=== PATIENT | female | born 1960 | race Two or more races ===

== ENCOUNTER 2024-07-15 21:13 | Inpatient (IN) | payer MEDICAID, SELFPAY ==
[2024-07-15 21:15] VITALS: PULSE 86; RESP 16; O2SAT 96
--- NOTE | 2024-07-15 21:15 | PC.NURSE ---
PT BROUGHT TO ER FROM [facility], SNF NURSE REPORTED PT BP IS LOW, O2 SAT LOW AND NOT ACTING RIGHT.
[2024-07-15 21:19] VITALS: BP 81/54; PULSE 81; RESP 19; TEMP 36.8; O2SAT 95
--- NOTE | 2024-07-15 21:21 | EKG_ITS ---
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
--- NOTE | 2024-07-15 21:24 | EDNOTE_ITS ---
ED General RME/HPI General Chief complaint: General Adult/Misc Complain Stated complaint: LOW BP, O2 SATS LOW,BODYACHES Time Seen by Provider: 07/15/24 21:19 Arrival date/time: 07/15/24 21:13 RME / HPI RME / HPI narrative: Dr. Sapp?s Main ED Evaluation: 64yo female RHIANNA from [facility] presents to the ED for a chief complaint of AMS and low blood pressure. Per EMS, nursing staff was doing rounds when they noticed the patient was acting different and appeared altered. They checked her vitals and noticed her blood pressure was low, so the patient was sent out for evaluation. When asked, patient states everything hurts . She endorses having generalized body aches, N/V/D, and a sore throat. She denies any rashes. No known allergies. Related Data Home Medications ?Medication ?Instructions ?Recorded ?Confirmed ASPIRIN (ASA 81MG EC) 81 mg GT QDAY PRN FOR HEART ##0 09/22/14 08/17/17 Esomeprazole Mag Trihydrate PKT * 40 mg GT QDAY ACID #0 ea 09/22/14 08/17/17 (NEXIUM PKT *) Insulin Regular * (HUMULIN R *) 0 subcut QID PRN BLOOD GLUCOSE #0 09/22/14 vials alprazolam 0.25 mg tablet 0.25 mg GT BID PRN ANXIETY #0 tabs 09/22/14 08/17/17 amlodipine 10 mg tablet (Norvasc) 10 mg GT QDAY #0 tabs 09/22/14 08/17/17 atorvastatin 40 mg tablet (Lipitor) 40 mg GT HS CHOLESTROL #0 tabs 09/22/14 08/17/17 erythromycin 250 mg tablet,delayed 250 mg GT BID INFECTION ##0 09/22/14 08/17/17 release (Flaco-Tab) gabapentin 100 mg capsule 100 mg GT HS #0 caps 09/22/14 08/17/17 insulin glargine 100 unit/mL 14 unit subcut QAM DIABETES #0 09/22/14 08/17/17 subcutaneous solution (Lantus vials U-100 Insulin) metoprolol tartrate 50 mg tablet 50 mg GT BID #0 tabs 09/22/14 08/17/17 Mag Hyd/Alum Hyd/Simeth SUSP * 30 ml PO Q8HR upset stomach ##0 11/14/14 08/17/17 (MYLANTA MAX *) docusate sodium 50 mg/5 mL oral 200 mg GT BID ##0 11/21/14 08/17/17 liquid polyethylene glycol 3350 17 gram 1 pkt GT HS ##0 11/21/14 08/17/17 oral powder packet (Miralax) Previous Rx's ?Medication ?Instructions ?Recorded lisinopril 20 mg tablet (Prinivil) 20 mg PO 2100 #30 tabs 09/29/14 potassium chloride 20 mEq/15 mL 20 meq (15 mL) PO BIDWM ##14 11/18/14 oral liquid Allergies Allergy/AdvReac Type Severity Reaction Status Date / Time No Known Allergies Allergy Verified 08/17/17 21:19 Review of Systems Review of Systems Systems Reviewed: All systems reviewed, normal except as documented Past Medical History Past Medical History CARDIAC: Positive Cardiac Disorders and Hypertension; Negative Congestive Heart Failure RESPIRATORY: Negative Chronic Obstructive Pulmonary Disease (COPD) GENITOURINARY: Negative Renal Disease ENDOCRINE: Positive Diabetes Mellitus Type 2; Negative Diabetes Mellitus Type 1 PSYCHO/SOCIAL: Positive Depression OTHER HISTORY: Positive Blood Transfusions Social History SMOKING STATUS: Unknown if ever smoked ED Exam Narrative Physical exam: GENERAL APPEARANCE: alert and oriented x person and place, well-developed, well-nourished, no acute distress VITALS: All vitals were reviewed and the pulse ox is 96% on room air, which is normal according to my interpretation. HEENT: Normocephalic, atraumatic; pupils equal, round, reactive to light; EOMI; mucous membranes pink, moist; oropharynx clear NECK: Supple LUNGS: CTABL; no wheezes, no rales, no rhonchi HEART: Regular rate, regular rhythm; normal S1, S2; no murmurs ABDOMEN: non distended; normal BS; soft, no tenderness, no guarding, no rebound; no masses, no organomegaly, no hernia BACK: no CVA tenderness EXTREMITIES: atraumatic; no edema NEUROLOGIC: awake; alert and oriented x person and place; cranial nerves II-XII grossly intact; no focal sensory or motor deficits Course Course Course Narrative: CXR is ordered for determining the etiology of AMS. Quality Measures none Orders Category Date Time Status Bedside COVID-19 Antigen Test NOW Care 07/15/24 21:41 Completed Bedside Influenza A&B Antigen Test NOW Care 07/15/24 21:41 Completed Wind Turbine Service Technician STAT Care 07/15/24 21:35 Active Continuous Pulse Oximetry STAT Care 07/15/24 21:35 Completed EKG (ED ONLY) *Do not use* NOW Care 07/15/24 21:22 Completed In and Out Catheter X1PRN Care 07/15/24 21:35 Completed Insert IV NOW Care 07/15/24 21:35 Active NPO STAT Care 07/15/24 21:35 Active Strict Intake and Output Routine Care 07/15/24 21:[address] head/brain wo con Stat Exams 07/16/24 01:03 Taken EKG (ED Only) Stat Exams 07/15/24 21:21 Draft XR chest 1V portable Stat Exams 07/15/24 21:35 Completed B-Type Natriuretic Peptide Stat Lab 07/15/24 21:50 Completed Blood Culture (Lab) Stat Lab 07/15/24 21:53 Received CBC Stat Lab 07/15/24 21:50 Completed Comprehensive Metabolic Panel Stat Lab 07/15/24 21:50 Completed LDH (Lactate Dehydrogenase) Stat Lab 07/15/24 21:50 Completed Lactate (Lactic Acid) Stat Lab 07/15/24 21:50 Completed Lipase Stat Lab 07/15/24 21:50 Completed Magnesium Stat Lab 07/15/24 21:50 Completed Partial Thromboplastin Time Stat Lab 07/15/24 21:50 Completed Phosphorous Stat Lab 07/15/24 21:50 Completed Procalcitonin Stat Lab 07/15/24 21:50 Completed Prothrombin Time with INR Stat Lab 07/15/24 21:50 Completed Troponin I Stat Lab 07/15/24 21:50 Completed Urinalysis Stat Lab 07/15/24 22:04 Completed Urine Culture Stat Lab 07/15/24 22:04 Received Sodium Chloride 0.9% 1000 ml [Ns] 1,000 ml Med 07/15/24 21:35 Discontinued IV 999 mls/hr Sodium Chloride 0.9% 1000 ml [Ns] 1,000 ml Med 07/16/24 00:31 Discontinued IV 999 mls/hr cefTRIAXone/D5w 1gm IV premix [Rocephin/D5w 1gm IV Med 07/15/24 21:37 Discontinued premix] 50 ml IV X1 Vital Signs Vital signs: Vital Signs Temperature 98.2 F 07/15/24 21:19 Pulse Rate 81 07/15/24 21:19 Respiratory Rate 19 07/15/24 21:19 Blood Pressure 81/54 L 07/15/24 21:19 Pulse Oximetry (%) 95 07/15/24 21:19 Oxygen Delivery Method Nasal Cannula 07/15/24 21:19 Oxygen Flow Rate 6 07/15/24 21:19 [facility] Patient data External records reviewed:: [facility] previous records (Per chart review, patient has no previous ED visits.) Clinical information provided by:: EMS Social determinants that could affect healthcare access:: housing (Pt resides in a SNF.) Patient has the following chronic illnesses:: HTN, DMII How is presenting disease/condition affected by chronic disease/condition?: u neffected by Evaluation data The following diagnostics were reviewed and interpreted by me:: lab results, radiology exam(s) and EKG tracing(s) Lab and/or radiology exams considered but not ordered:: none Interpretation Summary: Bedside Influenza is positive, WBC count is elevated at 17.9, Creatinine is elevated at 4.0, eGFR is low at 12, troponin is elevated at 0.087, Lactic Acid is normal, Procalcitonin is elevated at 239.31, lipase is slightly elevated at 59, UA is positive for a UTI, according to my interpretation. EKG done at 2135, NSR, rate of 78, normal axis, no ectopy, nonspecific ST abnormalities, no STEMI, according to my interpretation. ------ [place] [facility] Report Signed Patient: NICKI FELICIANO Record#: [id number] Birthdate: 1960 Age/Sex: 64 / F Location: [facility] Attending Dr: Ordering Physician: Pablito Sapp MD Date of Service: 07/15/24 Procedure(s): XR chest 1V portable Accession Number(s): [id number] cc: Will Paulino MD; Pablito Sapp MD~ Examination: AP chest single view Technique: AP portable upright chest single view Exam date and time: 02/13/2024 2153 hrs. Indications: Coughing today. Findings: Normal heart size Mild opacity left base retrocardiac No pulmonary edema Moderate osteopenia Impression: Mild opacity left base retrocardiac, consider early left base pneumonia, the appearance should be clinically correlated Dictated By: Will Paulino MD Signed By: <Electronically signed by Will Paulino MD in OV> 07/15/242158 -------- [place] Preliminary Report Draft Patient: NICKI FELICIANO Record#: [id number] Birthdate: 1960 Age/Sex: 64 / F Location: [facility] Attending Dr: Ordering Physician: Date of Service: Procedure(s): Accession Number(s): cc: ~ CT scan of the head without intravenous contrast (axial sections with sagittal and coronal reformats) July 16, 2024 0126 hours Clinical history: AMS No prior study is available for comparison. Findings: There is no evidence of intracranial hemorrhage, mass effect or midline shift. Encephalomalacia is seen in the right inferior cerebellum.There are mild periventricular white matter hypodensities, likely representing chronic small vessel ischemia. There is mild to moderate volume loss. The calvarium is unremarkable. There is mild mucosal thickening in the bilateral maxillary, ethmoid and sphenoid sinuses. The mastoid air cells are clear. Impression: No evidence of intracranial hemorrhage, mass effect or midline shift. 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 Chronic small vessel ischemia and volume loss. Report Electronically Signed By: Frankie Bianchi 07/16/2024 2:15:14 AM [EST] Medications Medications considered but not ordered:: none Medication administrations:: Medication Administration History Discontinued Medications Sodium Chloride (Ns) 1,000 mls @ 999 mls/hr IV .Q1H1M ONE Stop: 07/15/24 22:35 Last Infusion: 07/15/24 23:13 Dose: Infused Documented By: Admin: 07/15/24 22:11 Dose: 999 mls/hr Documented By: CVL Ceftriaxone Sodium/Dextrose (Rocephin/D5w 1gm Iv Premix) 50 mls @ 100 mls/hr IV X1 ONE Stop: 07/15/24 22:06 Last Infusion: 07/15/24 22:46 Dose: Infused Documented By: Admin: 07/15/24 22:12 Dose: 100 mls/hr Documented By: CVL Sodium Chloride (Ns) 1,000 mls @ 999 mls/hr IV .Q1H1M ONE Stop: 07/16/24 01:31 Last Infusion: 07/16/24 01:48 Dose: Infused Documented By: Admin: 07/16/24 00:36 Dose: 999 mls/hr Documented By: CVL see above Consultations Consultation(s) initiated? (list below): Yes Consultation #1 (Physician, Specialty, Details): Discussed case with [Dr. Caldwell] from Hospitalist service regarding admission. Discussed patients ED course, exam findings, labs, and radiology results. The Hospitalist [agrees] to accept the patient for admission. Time: 00:37 Consultation #2 (Physician, Specialty, Details): Spoke with the resident hospitalist, who is requesting a CT head before admitting the patient. Time: 01:01 Consultation #3 (Physician, Specialty, Details): Discussed case with [Dr. Caldwell] from Hospitalist service regarding admission. Discussed patients ED course, exam findings, labs, and radiology results. The Hospitalist [agrees] to accept the patient for admission. Time: 02:27 Diagnosis Differential Diagnosis ED Complaint MDM: sepsis, UTI, COVID, Influenza, viral syndrome Most likely diagnosis given after review of the tests above:: see below Admission Indicated Admission indicated?: indicated Explain why admission is indicated or not indicated:: Admission criteria met Admission Request Was there a request for admission?: Yes Admission Attestation Admission request attestation: Discussed case with [] from Hospitalist service regarding admission. Discussed patients ED course, exam findings, labs, and radiology results. The Hospitalist [agrees,declines] to accept the patient for admission. Disposition Plan Disposition Plan: Admit Medical Decision Making Differential Diagnosis Differential Diagnosis: sepsis, UTI, COVID, Influenza, viral syndrome Lab Data 07/15/24 21:50 07/15/24 21:50 Labs: Lab Results 07/15/24 07/15/24 Range/Units 21:50 22:04 WBC 17.9 H (3.6-11.0) Thou/mm3 RBC 4.53 (4.00-5.20) Miln/mm3 Hgb 11.0 L (12.0-16.0) g/dL Hct 33.9 L (36.0-46.0) % MCV 75 L (80-100) fL MCH 24.3 L (25.0-35.0) pg MCHC 32.4 (31.0-37.0) g/dl RDW Std Deviation 43.5 (36.4-46.3) fL Plt Count 192 (140-440) Thou/mm3 Neut % (Auto) 69 (37-80) % Lymph % (Auto) 24 (10-50) % Bland % (Auto) 7 (0-12) % Eos % (Auto) 0 (0-10) % Baso % (Auto) 0 (0-2.5) % Neut # (Auto) 12.3 H (1.8-7.7) Thou/mm3 Lymph # (Auto) 4.2 (1.0-4.8) Thou/mm3 Bland # (Auto) 1.2 H (0.0-0.8) Thou/mm3 Eos # (Auto) 0.1 (0.0-0.5) Thou/mm3 Baso # (Auto) 0.0 (0.0-0.2) Thou/mm3 Immature Gran # (Auto) 0.08 H (0.00-0.00) Thou/mm3 Absolute Nucleated RBC 0.00 (0.00-0.00) Thou/mm3 Immature Gran % 0 (0-0) % Nucleated RBC % 0 (0) /100 WBC PT 11.0 (9.0-12.2) Seconds INR 1.0 (0.9-1.3) APTT 33.6 (22.0-36.0) Seconds Sodium 137 (136-145) mMol/L Potassium 3.6 (3.4-5.1) mMol/L Chloride 101 (98-107) mMol/L Carbon Dioxide 25.8 (20.0-31.0) mMol/L Anion Gap 10 (7-16) BUN 50 H (9-23) mg/dL Creatinine 4.0 H (0.6-1.3) mg/dL Estim Creat Clear Calc Not Performed. eGFR 12 L* (60 - ) See Note BUN/Creatinine Ratio 13 (12-20) Ratio Glucose 166 H (74-106) mg/dL Calculated Osmolality 291 (275-295) Lactic Acid 1.4 (0.4-2.0) mMol/L Calcium 8.9 (8.3-10.6) mg/dL Corrected Calcium 9.4 (8.5-10.1) mg/dL Phosphorus 3.8 (2.4-5.1) mg/dL Magnesium 1.6 (1.6-2.6) mg/dL Total Bilirubin 0.2 L (0.3-1.2) mg/dL AST 43 H (0-34) U/L ALT 20 (10-49) U/L Alkaline Phosphatase 102 (46-116) U/L Lactate Dehydrogenase 205 (120-246) U/L Troponin I 0.087 H* (0.0-0.045) ng/mL B-Natriuretic Peptide 71 (0-100) pg/mL Total Protein 6.3 (5.7-8.2) gm/dL Albumin 3.4 (3.4-4.8) gm/dL Globulin 2.9 (2.3-3.5) gm/dL Albumin/Globulin Ratio 1.2 (1.2-2.2) Lipase 59 H (12-53) U/L Procalcitonin 239.31 H (0.0-0.49) ng/ml Ur Collection Type Clean Catch Urine Color Yellow (Lt Yel-Yel) Urine Clarity Hazy (Clear/Hazy) Urine pH 7.5 H (5.0-7.0) Ur Specific Todd 1.015 (1.001-1.035) Urine Protein 3+ A (Neg - Trace) Urine Glucose (UA) Negative (Negative) Urine Ketones Negative (Negative) Urine Blood 1+ A (Negative) Urine Nitrite Negative (Negative) Urine Bilirubin Negative (Negative) Urine Urobilinogen (Auto) Negative (0.0-1.0) mg/dL Ur Leukocyte Esterase Positive (Negative) Urine RBC < 1 (0-3) /hpf Urine WBC 13 H (0-5) /hpf Ur Squamous Epith Cells 1 (0-5) /hpf Urine Bacteria 1+ A (None) Discharge Plan Plan Patient Disposition: Admit Acute Care w/in Hospital Prescriptions/Referrals Prescriptions/Med Rec: No Action ASPIRIN (ASA 81MG EC) 81 MG TABLET, ENTERIC COATED 81 mg GT QDAY PRN (Reason: FOR HEART) Qty: 0 atorvastatin [Lipitor] 40 MG tablet 40 mg GT HS Qty: 0 amlodipine [Norvasc] 10 MG tablet 10 mg GT QDAY Qty: 0 gabapentin 100 MG capsule 100 mg GT HS Qty: 0 Esomeprazole Mag Trihydrate PKT * (NEXIUM PKT *) 40 MG/PACKET SUSPDR.REC 40 mg GT QDAY Qty: 0 Insulin Regular * (HUMULIN R *) 100 U/ML VIAL 0 Sub-Q QID PRN (Reason: BLOOD GLUCOSE) Qty: 0 erythromycin [Flaco-Tab] 250 MG tablet 250 mg GT BID Qty: 0 insulin glargine [Lantus U-100 Insulin] 100 U/ML solution 14 unit Sub-Q QAM Qty: 0 alprazolam 0.25 MG tablet 0.25 mg GT BID PRN (Reason: ANXIETY) Qty: 0 metoprolol tartrate 50 MG tablet 50 mg GT BID Qty: 0 lisinopril [Prinivil] 20 MG tablet 20 mg PO 2100 Qty: 30 0RF Mag Hyd/Alum Hyd/Simeth SUSP * (MYLANTA MAX *) 360 ML ORAL.SUSP 30 ml PO Q8HR Qty: 0 potassium chloride 40 MEQ/30 ML liquid 20 meq PO BIDWM Qty: 14 0RF docusate sodium 100 MG/10 ML liquid 200 mg GT BID Qty: 0 polyethylene glycol 3350 [Miralax] 12 EA powder in packet 1 pkt GT HS Qty: 0 Referrals: No Primary/Family,Physician [Primary Care Provider] - In 1 week Problem List Clinical Impression: Non-ST elevation AL (NSTEMI), Sepsis, Acute renal failure, UTI (urinary tract infection) Patient/Caregiver Discharge Instructions Print Language: Sammarinese Stand Alone Forms: [facility] Award Info., Patient Portal Info Letter
[2024-07-15 21:32] VITALS: BP 108/51; PULSE 76; RESP 18; O2SAT 97
--- NOTE | 2024-07-15 21:35 | XR_ITS ---
Examination: AP chest single view Technique: AP portable upright chest single view Exam date and time: 02/13/2024 2153 hrs. Indications: Coughing today. Findings: Normal heart size Mild opacity left base retrocardiac No pulmonary edema Moderate osteopenia Impression: Mild opacity left base retrocardiac, consider early left base pneumonia, the appearance should be clinically correlated
[2024-07-15 21:40] VITALS: PULSE 78
[2024-07-15 21:58] LABS: Lactate (Lactic Acid) 1.4 mMol/L (0.4-2.0)
[2024-07-15 22:06] LABS: Basophils % (Auto) 0 % (0-2.5); Eosinophils # (Auto) 0.1 Thou/mm3 (0.0-0.5); Eosinophils % (Auto) 0 % (0-10); Hematocrit 33.9 % (36.0-46.0); Immature Granulocytes % (Auto) 0 % (0-0); Immature Granulocytes Auto 0.08 Thou/mm3 (0.00-0.00); Lymphocytes # (Auto) 4.2 Thou/mm3 (1.0-4.8); Lymphocytes % (Auto) 24 % (10-50); Mean Corpuscular HGB Conc 32.4 g/dl (31.0-37.0); Mean Corpuscular Hemoglobin 24.3 pg (25.0-35.0); Mean Corpuscular Volume 75 fL (80-100); Monocytes # (Auto) 1.2 Thou/mm3 (0.0-0.8); Monocytes % (Auto) 7 % (0-12); Neutrophils # (Auto) 12.3 Thou/mm3 (1.8-7.7); Neutrophils % (Auto) 69 % (37-80); Nucleated Red Blood Cell % 0 /100 WBC (0); Platelet Count 192 Thou/mm3 (140-440); RDW Standard Deviation 43.5 fL (36.4-46.3); Red Blood Count 4.53 Miln/mm3 (4.00-5.20); White Blood Count 17.9 Thou/mm3 (3.6-11.0)
[2024-07-15 22:11] LABS: Collection Type, Urine Clean Catch
[2024-07-15] MEDS: SODIUM CHLORIDE 0.9% 1000 ML 1,000 ML 999 ML IV (22:11)
[2024-07-15] MEDS: cefTRIAXone/D5w 1gm IV premix 50 ML IV (22:12)
[2024-07-15 22:19] LABS: Partial Thromboplastin Time 33.6 Seconds (22.0-36.0)
[2024-07-15 22:38] LABS: Bacteria,Urine 1+; Bilirubin,Urine Negative (Negative); Blood,Urine 1+ (Negative); Clarity,Urine Hazy (Clear/Hazy); Color,Urine Yellow (Lt Yel-Yel); Glucose, Urine Negative (Negative); Ketones,Urine Negative (Negative); Leukocyte Esterase,Urine Positive (Negative); Nitrite,Urine Negative (Negative); PH,Urine 7.5 (5.0-7.0); Protein,Urine 3+ (Neg - Trace); RBC,Urine < 1 /hpf (0-3); Specific Gravity,Urine 1.015 (1.001-1.035); Squamous Epithelial Cell,Urine 1 /hpf (0-5); Urobilinogen,Urine Negative mg/dL (0.0-1.0); WBC,Urine 13 /hpf (0-5)
[2024-07-15 22:45] LABS: B-Type Natriuretic Peptide 71 pg/mL (0-100)
[2024-07-15 22:48] VITALS: BP 109/57; PULSE 71; RESP 14; O2SAT 99
[2024-07-15 22:49] LABS: Alanine Aminotransferase 20 U/L (10-49); Albumin, Serum 3.4 gm/dL (3.4-4.8); Albumin/Globulin Ratio 1.2 (1.2-2.2); Alkaline Phosphatase 102 U/L (46-116); Anion Gap 10 (7-16); Aspartate Amino Transferase 43 U/L (0-34); BUN/Creatinine Ratio 13 Ratio (12-20); Bilirubin,Total 0.2 mg/dL (0.3-1.2); Blood Urea Nitrogen 50 mg/dL (9-23); Calcium 8.9 mg/dL (8.3-10.6); Calcium (Corrected) 9.4 mg/dL (8.5-10.1); Carbon Dioxide 25.8 mMol/L (20.0-31.0); Chloride 101 mMol/L (98-107); Globulin 2.9 gm/dL (2.3-3.5); Glucose 166 mg/dL (74-106); Lipase 59 U/L (12-53); Magnesium 1.6 mg/dL (1.6-2.6); Osmolality,Calculated 291 (275-295); Phosphorous 3.8 mg/dL (2.4-5.1); Potassium 3.6 mMol/L (3.4-5.1); Sodium 137 mMol/L (136-145); Total Protein 6.3 gm/dL (5.7-8.2); eGFR 12 See Note
[2024-07-15 22:50] LABS: Troponin I 0.087 ng/mL (0.0-0.045)
[2024-07-15 23:39] LABS: LDH (Lactate Dehydrogenase) 205 U/L (120-246)
[2024-07-16] VITALS (10 sets, daily range): BP systolic 104–129; BP diastolic 57–70; PULSE 69–83; RESP 12–21; TEMP 36.1–36.7; O2SAT 93–98; BMI 35.8
[2024-07-16] MEDS: SODIUM CHLORIDE 0.9% 1000 ML 1,000 ML 999 ML IV (00:36)
[2024-07-16 00:59] LABS: Procalcitonin 239.31 ng/ml (0.0-0.49)
--- NOTE | 2024-07-16 01:03 | XR_ITS ---
Examination: CT brain head without contrast. 2-D sagittal coronal reconstructions Date and time of exam:July 16, 2024 0126 hours INDICATIONS: Onset altered mental status today CTDI: vol (mGy):52 DLP: (mGycm):1056 Technique: Multiple CT axial sections of the brain have been obtained, 5 mm slice thickness. Contrast has not been administered. 2-D sagittal, coronal reconstructions have been obtained Low dose protocols were performed. One or more of the following dose reduction techniques were used; automated exposure control, adjustment of the mA and/or KV according to patient size, use of iterative reconstruction technique. Findings: No significant ventricular enlargement. Old appearing infarct in the left caudate nucleus but clinical correlation advised Extensive encephalomalacia right cerebellar hemisphere Intra-axial or extra-axial hemorrhage density is not seen. No mass effect or midline shift Basal cisterns are not remarkable. Fourth ventricle is midline. Cranial vault intact. Impression: Negative for acute hemorrhage, mass effect or midline shift Old appearing infarcts as above, clinical correlation advised As clinically warranted, brain MRI follow-up would best assess for acute ischemic change
--- NOTE | 2024-07-16 02:16 | PRELIM_ITS ---
CT scan of the head without intravenous contrast (axial sections with sagittal and coronal reformats) July 16, 2024 0126 hours Clinical history: AMS No prior study is available for comparison. Findi ngs:There is no evidence of intracranial hemorrhage, mass effect or midline shift. Encephalomalacia i s seen in the right inferior cerebellum.There are mild periventricular white matter hypodensities, li moustapha representing chronic small vessel ischemia. There is mild to moderate volume loss. The calvariu m is unremarkable. There is mild mucosal thickening in the bilateral maxillary, ethmoid and sphenoid sinuses. The mastoid air cells are clear. 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 Report Electronically Signed By: Frankie Bianchi 06/19 2:15:14 AM [EST]
--- NOTE | 2024-07-16 02:47 | ESHP_ITS ---
Documentation for date of: 07/16/24 HPI History of Present Illness Chief complaint: Altered mental status, low blood pressure History of present illness: 62-year-old female with history of CVA with functional quadriplegia, hypertension, hyperlipidemia, depression, anemia of chronic disease, CKD, insulin dependent type 2 diabetes, diverticulosis presenting to the ED from [facility] with change in mental status per staff members along with low blood pressure when checked. History taken mostly from ED physician and reports from [facility] as the patient is verbal but mostly monitoring her words and seems to be debilitated. Per chart review, patient had CVA episode sometime in 2014 and was trach and PEG, admitted to a subacute facility at which point she improved over several years where she was able to use wheelchair. Per notes, patient does not have any family support and has been at [facility] for several years. When she presented to the ED, ED physician notes that the patient was altered and had some confusion which is out of her normal baseline. Interviewed the patient, she is Citizen [place]- speaking, at which point she stated that she is having chest pain and difficulty with initiating breaths; however, she denies having any nausea/vomiting/diarrhea, sick contacts or any other concerning symptoms Medical history: As listed above Surgical history: Trach and PEG Allergies: NKDA Medications: Amlodipine, metformin, Januvia, long-acting insulin, esomeprazole, metoprolol tartrate Family history: Noncontributory Social history: Patient is a long-term resident at [facility], no charted history of smoking tobacco, alcohol use or illicit drug use ROS: All 12 systems assessed and the patient denies unless otherwise stated in HPI. In the ED, patient presented hypotensive 81/54, heart rate 81, respiratory rate 19, afebrile satting 95 on 6 L nasal cannula. Pertinent lab findings included fingerstick blood glucose 167, WBC 17.9, hemoglobin 11 with MCV of 75, platelet 192, potassium 3.6, BUN 50, creatinine 4.0, EGFR 12, lactic acid 1.4, magnesium 1.6, AST 43, ALT 20, troponin 0.087 and Pro-Nicholas 239. Urinalysis shows 3+ proteinuria, hematuria, positive leukocyte esterase, pyuria and +1 bacteria. EKG shows sinus rhythm, chest x-ray shows left-sided pneumonia and head CT is negative for any acute bleed but there is chronic microvascular changes along with encephalomalacia in the right inferior cerebellum secondary to old infarct Patient will be admitted for sepsis secondary to pneumonia and urinary tract infection with BETHANY likely secondary to Tamiflu; will be treated with IV antibiotics and IV fluids. Exam Vital Signs Temp Pulse Resp BP Pulse Ox O2 Del Method O2 Flow Rate 98.0 F 74 19 104/62 96 Nasal Cannula 2 07/16/24 00:29 07/16/24 02:00 07/16/24 02:00 07/16/24 02:00 07/16/24 02:00 07/16/24 02:00 07/16/24 02:00 Narrative Exam Physical Exam: GENERAL: Awake but somnolent, answers questions appropriately when prompted, appears stated age HEENT: NC/AT. Moist mucosa. PERRLA/EOMI. CARDIO: Heart RRR, no obvious murmurs, no JVD. PULM: No coughing or visible SOB. Rhonci noted on L>R lung underwood, no crackles/rales/wheeze GI: Abdomen soft, tenderness to palpation LLQ and hypogastric regions, no guarding or rigidity. Borborygmi apparent. SKIN/MSK/EXT: No wounds/discoloration/rashes/edema/amputations noted. +Pedal pulses present B/L. NEURO: Oriented x2 (person, place - not to purpose), unable to assess CN 2-12 due to patient's somnolence Results: Labs 07/15/24 21:50 07/15/24 21:50 Labs: Short CBC 07/15/24 Range/Units 21:50 WBC 17.9 H (3.6-11.0) Thou/mm3 Hgb 11.0 L (12.0-16.0) g/dL Hct 33.9 L (36.0-46.0) % Plt Count 192 (140-440) Thou/mm3 BMP 07/15/24 21:50 Sodium 137 Potassium 3.6 Chloride 101 Carbon Dioxide 25.8 BUN 50 H Creatinine 4.0 H Glucose 166 H Calcium 8.9 Cardiac Enzymes 07/15/24 Range/Units 21:50 Troponin I 0.087 H* (0.0-0.045) ng/mL Liver Function 07/15/24 Range/Units 21:50 Total Bilirubin 0.2 L (0.3-1.2) mg/dL AST 43 H (0-34) U/L ALT 20 (10-49) U/L Alkaline Phosphatase 102 (46-116) U/L Albumin 3.4 (3.4-4.8) gm/dL Urine 07/15/24 Range/Units 22:04 Urine Color Yellow (Lt Yel-Yel) Urine Clarity Hazy (Clear/Hazy) Urine pH 7.5 H (5.0-7.0) Ur Specific [place] 1.015 (1.001-1.035) Urine Protein 3+ A (Neg - Trace) Urine Glucose (UA) Negative (Negative) Quality Measures Quality Measures none Medications Home Medications and Allergies Home Medications ?Medication ?Instructions ?Recorded ?Confirmed ?Type azithromycin 250 mg tablet 250 mg PO DAILY 07/16/24 07/16/24 History glucagon HCl 1 mg solution for 1 mg subcut Q20M PRN hypo 07/16/24 07/16/24 History injection (Glucagon (HCl) Emergency Kit) oseltamivir 75 mg capsule 75 mg PO BID 07/16/24 07/16/24 History Allergies Allergy/AdvReac Type Severity Reaction Status Date / Time No Known Allergies Allergy Verified 08/17/17 21:19 Visit Medications Acetaminophen (Acetaminophen 325 Mg Tablet) 650 mg PO Q6H PRN PRN Reason: Pain 1-3 and/or Fever >100.1 Stop: 08/15/24 02:37 Azithromycin (Azithromycin 250 Mg Tablet) 250 mg PO QDAY ARLENE Stop: 07/21/24 08:59 Dextrose (Dextrose 50%-Water Inj 50 Ml Syringe) 25 ml IV Q15MIN PRN PRN Reason: BG 50-70 responsive npo pt Stop: 08/15/24 02:40 Dextrose (Dextrose 50%-Water Inj 50 Ml Syringe) 50 ml IV Q15MIN PRN PRN Reason: BG <50 OR BG <70 & pt unresponsive Stop: 08/15/24 02:40 Glucagon (Glucagon Inj 1 Mg Vial) 1 mg IM Q15MIN PRN PRN Reason: BG <70, and no IV access Heparin Sodium (Porcine) (Heparin Sod Inj 5000 Unit/Ml Vial) 5,000 unit SC Q12HR ARLENE Stop: 07/30/24 08:59 Ceftriaxone Sodium/Dextrose (Rocephin/D5w 1gm Iv Premix) 50 mls @ 100 mls/hr IV QDAY ARLENE Stop: 07/23/24 02:42 Sodium Chloride (Ns) 1,000 mls @ 50 mls/hr IV .Q20H ARLENE Stop: 07/16/24 22:43 Magnesium Sulfate (Magnesium Sulfate Ivpb) 4 gm in 50 mls @ 12.5 mls/hr IV X1 ONE Stop: 07/16/24 06:45 Insulin Human Lispro (Insulin Lispro (Admelog) 1 Unit/0.01 Ml Unit) 0 unit SC Q6HR ARLENE; Protocol Stop: 08/15/24 05:59 Ondansetron HCl (Ondansetron Inj 2 Mg/Ml Inj 2 Ml) 4 mg IV Q6H PRN; Protocol PRN Reason: NAUSEA OR VOMITING Stop: 08/15/24 02:37 Sennosides (Senna Tablet) 1 tab PO QDAY ARLENE; Protocol Stop: 08/15/24 08:59 Discontinued Medications Azithromycin (Azithromycin 250 Mg Tablet) 500 mg PO X1 ONE Stop: 07/16/24 02:43 Sodium Chloride (Ns) 1,000 mls @ 999 mls/hr IV .Q1H1M ONE Stop: 07/15/24 22:35 Last Infusion: 07/15/24 23:13 Dose: Infused Ceftriaxone Sodium/Dextrose (Rocephin/D5w 1gm Iv Premix) 50 mls @ 100 mls/hr IV X1 ONE Stop: 07/15/24 22:06 Last Infusion: 07/15/24 22:46 Dose: Infused Sodium Chloride (Ns) 1,000 mls @ 999 mls/hr IV .Q1H1M ONE Stop: 07/16/24 01:31 Last Infusion: 07/16/24 01:48 Dose: Infused Oseltamivir Phosphate (Oseltamivir 30 Mg Capsule) 30 mg PO X1 ONE Stop: 07/16/24 02:38 Assessment & Plan Plan 62-year-old female with history of CVA with functional quadriplegia, hypertension, hyperlipidemia, depression, anemia of chronic disease, CKD, insulin dependent type 2 diabetes, diverticulosis presenting from [facility] with change in mental status per staff members along with low blood pressure when checked will be admitted for sepsis secondary to pneumonia and urinary tract infection with BETHANY likely secondary to Tamiflu; will be treated with IV antibiotics and IV fluids. #Acute encephalopathy 2/2 #Sepsis secondary to pneumonia #Community-acquired pneumonia, Influenza PNA #Acute respiratory failure #Urinary tract infection #Leukocytosis Patient presenting from [facility] transitional care secondary to change in mental status and low blood pressure Unable to acquire history from patient as the patient is somnolent and only provides one-word answers In the ED, patient presented hypotensive and hypoxemic requiring 6 L nasal cannula Patient appears septic with new acute encephalopathy, WBC 17.9, end-organ dysfunction (acute renal failure), Pro-Nicholas 239 Chest x-ray shows left-sided pneumonia, urinalysis shows signs of urinary tract infection (unable to ascertain if patient has dysuria but she does have hypogastric tenderness) CT of head ordered to rule out intracranial/cerebral hemorrhage; no bleed noted but there is chronic microvascular changes along with encephalomalacia in the right inferior cerebellum secondary to old infarct Patient given 2 L normal saline boluses in the ED for sepsis alert Plan: IV ceftriaxone and azithromycin regimen ordered Oxygen supplementation as needed Blood and urine cultures IV maintenance fluids Discontinued Tamiflu 30mg (renally dosed) as patient could possibly have received 75mg (pending med rec) already. #Acute renal failure #Diabetic nephropathy Per chart review, patient has history of CKD likely secondary to diabetic nephropathy Patient presenting now with acute renal failure creatinine of 4.0, BUN 50 and EGFR of 12 Likely secondary to sepsis versus worsening kidney function due to chronic medical condition Patient was given 75 mg of Tamiflu at SNF facility which can precipitate kidney failure Plan: IV maintenance fluids Follow-up with morning labs, expecting creatinine to improve with IV fluids If patient does not improve, consider consulting nephrology Patient does not meet emergent dialysis needs at this time (not volume overloaded, not acidotic, no hyperkalemia, no toxins) Avoid nephrotoxic agents Renally dose medications #Elevated troponin Patient presenting to the ED with elevated troponin 0.087 Patient is state that she has chest pain, centrally with no radiation Likely secondary to septic status along with pneumonia but patient does have some risk factors of developing ACS/CAD Patient does have hypertension, diabetes, CKD and history of CVA in the past Plan: Trending troponin every 6 hours #Hypertension Patient has history of hypertension on metoprolol tartrate, amlodipine Patient presenting now with sepsis and hypotension Plan: Restart home medications when appropriate #Insulin-dependent type 2 diabetes Patient is on metformin, Januvia and insulin at the facility No A1c on file Plan: Follow-up with A1c Sliding scale insulin every 6 hours Bedside blood glucose every 6 hours #Microcytic anemia Per chart review, patient has history of anemia and has been given iron supplementation in the past Differentials include anemia of chronic disease, iron deficiency anemia, thalassemia Plan: Consider repeating iron panel #History of CVA #History of functional quadriplegia, dysphagia #History of trach and PEG 2014 Chronic medical conditions Plan: Speech evaluation for dysphagia, n.p.o. until then Hospital Management: Lines: PIV Diet: N.p.o. pending swallow eval Bowel: Senna as needed GI prophylaxis: Protonix DVT prophylaxis: Heparin subq Dispo: Sepsis secondary to pneumonia/UTI on IV antibiotics and IV fluids for acute renal failure Code: Full Patient seen and examined with attending Dr. Gupta and senior resident Dr. Marcela Roberts, PGY-1 Attending Provider Attestation/Addendum 64-year-old female with multiple medical conditions including CVA, history of trach PEG, functional quadriplegia resident of transitional care facility was brought in because of altered mentation. The patient initially had low blood pressure. She was diagnosed with sepsis. She tested positive for flu. She has abnormal BUN and creatinine. Repeat CT scan of the head showed no acute stroke no bleed. Patient was admitted for severe sepsis secondary to viral pneumonia possible superimposed bacterial infection. Discussed with housestaff.
[2024-07-16] MEDS: SODIUM CHLORIDE 0.9% 1000 ML 1,000 ML 50 ML IV (03:44)
[2024-07-16] MEDS: Magnesium Sulfate 4 GM Ivpb 4 GM/50 ML BAG IV (03:48)
[2024-07-16 05:49] LABS: Basophils % (Auto) 0 % (0-2.5); Eosinophils % (Auto) 0 % (0-10); Hemoglobin 10.9 g/dL (12.0-16.0); Immature Granulocytes % (Auto) 0 % (0-0); Immature Granulocytes Auto 0.06 Thou/mm3 (0.00-0.00); Lymphocytes # (Auto) 3.5 Thou/mm3 (1.0-4.8); Lymphocytes % (Auto) 23 % (10-50); Mean Corpuscular HGB Conc 32.1 g/dl (31.0-37.0); Mean Corpuscular Hemoglobin 24.3 pg (25.0-35.0); Mean Corpuscular Volume 76 fL (80-100); Monocytes # (Auto) 0.8 Thou/mm3 (0.0-0.8); Monocytes % (Auto) 5 % (0-12); Neutrophils # (Auto) 10.6 Thou/mm3 (1.8-7.7); Neutrophils % (Auto) 71 % (37-80); Nucleated Red Blood Cell % 0 /100 WBC (0); Platelet Count 174 Thou/mm3 (140-440); Red Blood Count 4.48 Miln/mm3 (4.00-5.20); White Blood Count 14.9 Thou/mm3 (3.6-11.0)
[2024-07-16 05:56] LABS: Glucose Estimated Average 169 mg/dL (80-131); Hemoglobin A1C 7.5 % Hgb (4.8-6.0)
[2024-07-16 06:41] LABS: Alanine Aminotransferase 14 U/L (10-49); Albumin, Serum 3.3 gm/dL (3.4-4.8); Albumin/Globulin Ratio 1.2 (1.2-2.2); Alkaline Phosphatase 96 U/L (46-116); Anion Gap 10 (7-16); Aspartate Amino Transferase 36 U/L (0-34); BUN/Creatinine Ratio 12 Ratio (12-20); Bilirubin,Total 0.2 mg/dL (0.3-1.2); Blood Urea Nitrogen 48 mg/dL (9-23); Calcium 7.9 mg/dL (8.3-10.6); Calcium (Corrected) 8.5 mg/dL (8.5-10.1); Carbon Dioxide 24.4 mMol/L (20.0-31.0); Cardiac Risk Estimate 2.7 RATIO (3.7-5.6); Chloride 104 mMol/L (98-107); Cholesterol 77 mg/dL (132-200); Creatinine (Component) 3.9 mg/dL (0.6-1.3); Estimated Creatinine Clearance 15.5 mL/min (>60); Globulin 2.8 gm/dL (2.3-3.5); Glucose 141 mg/dL (74-106); HDL Cholesterol 29 mg/dL (40-60); LDL Cholesterol,Calculated 14 mg/dL (0-130); Magnesium 1.9 mg/dL (1.6-2.6); Osmolality,Calculated 290 (275-295); Phosphorous 4.1 mg/dL (2.4-5.1); Potassium 3.8 mMol/L (3.4-5.1); Sodium 138 mMol/L (136-145); Thyroid Stimulating Hormone 0.58 uIU/mL (0.55-4.78); Total Protein 6.1 gm/dL (5.7-8.2); Triglycerides 171 mg/dL (30-150); eGFR 12 See Note
[2024-07-16 06:48] LABS: Troponin I 0.068 ng/mL (0.0-0.045)
--- NOTE | 2024-07-16 07:32 | PD.RESPRO ---
Documentation for date of: 07/16/24 Subjective Subjective Interval history: 62-year-old female with history of CVA with functional quadriplegia, hypertension, hyperlipidemia, depression, anemia of chronic disease, CKD, insulin dependent type 2 diabetes, diverticulosis presenting to the ED from [facility] with change in mental status per staff members along with low blood pressure when checked. History taken mostly from ED physician and reports from [facility] transitional care as the patient is verbal but mostly monitoring her words and seems to be debilitated. Per chart review, patient had CVA episode sometime in 2014 and was trach and PEG, admitted to a subacute facility at which point she improved over several years where she was able to use wheelchair. Per notes, patient does not have any family support and has been at [facility] for several years. When she presented to the ED, ED physician notes that the patient was altered and had some confusion which is out of her normal baseline. Interviewed the patient, she is [place]-speaking, at which point she stated that she is having chest pain and difficulty with initiating breaths; however, she denies having any nausea/vomiting/diarrhea, sick contacts or any other concerning symptoms In the ED, patient presented hypotensive 81/54, heart rate 81, respiratory rate 19, afebrile satting 95 on 6 L nasal cannula. Pertinent lab findings included fingerstick blood glucose 167, WBC 17.9, hemoglobin 11 with MCV of 75, platelet 192, potassium 3.6, BUN 50, creatinine 4.0, EGFR 12, lactic acid 1.4, magnesium 1.6, AST 43, ALT 20, troponin 0.087 and Pro-Nicholas 239. Urinalysis shows 3+ proteinuria, hematuria, positive leukocyte esterase, pyuria and +1 bacteria. EKG shows sinus rhythm, chest x-ray shows left-sided pneumonia and head CT is negative for any acute bleed but there is chronic microvascular changes along with encephalomalacia in the right inferior cerebellum secondary to old infarct Patient admitted for sepsis secondary to pneumonia and urinary tract infection with BETHANY likely secondary to Tamiflu; will be treated with IV antibiotics and IV fluids. 07/16/2024: Patient interviewed and examined at bedside this a.m. No acute overnight events reported. Patient's renal function noted to be markedly elevated with a BUN/CR of 48 and 3.9 respectively. Due to patient presenting with hypotension, DDX of ATN is suspected, will consult Nephrology services for further recommendations. Patient given IV fluid bolus of 500 cc normal saline. Repeat BMP pending. Patient also noted to have a rash above the left eyebrow in the V1 ophthalmic region of cranial nerve V with Concern for zoster opthalmicus. Will defer starting acyclovir at this time due to patient's markedly elevated creatinine and consult ID for further recommendations. Exam Vital Signs Temp Pulse Resp BP Pulse Ox O2 Del Method O2 Flow Rate 97.0 F 76 19 124/69 96 Nasal Cannula 2 07/16/24 05:18 07/16/24 05:18 07/16/24 05:18 07/16/24 05:18 07/16/24 05:18 07/16/24 05:18 07/16/24 05:18 Narrative Exam General: Not in any visible or apparent acute distress, somnolent, sick appearing, alert but minimally interactive HEENT: NC/AT moist mucous membranes CVS: S1S2 Regular rate and rhythm, No murmurs, rubs or gallops Lungs: Normal respiratory effort, no wheezing rhonchi or rales, CTAB Abd: Soft, no tenderness to palpation Ext: No edema, warm well perfused, decreased strength secondary to functional quadriplegia Skin: Intact, 2x3 cm erythematous flat, non-raised rash above the left eyebrow noted Neuro: AOx2 Baseline Objective Labs 07/16/24 04:33 07/16/24 13:20 Labs: Laboratory Results - last 24 hr 07/15/24 07/15/24 07/16/24 21:50 22:04 04:33 WBC 17.9 H 14.9 H RBC 4.53 4.48 Hgb 11.0 L 10.9 L Hct 33.9 L 34.0 L MCV 75 L 76 L MCH 24.3 L 24.3 L MCHC 32.4 32.1 RDW Std Deviation 43.5 44.0 Plt Count 192 174 Neut % (Auto) 69 71 Lymph % (Auto) 24 23 [place] % (Auto) 7 5 Eos % (Auto) 0 0 Baso % (Auto) 0 0 Neut # (Auto) 12.3 H 10.6 H Lymph # (Auto) 4.2 3.5 [place] # (Auto) 1.2 H 0.8 Eos # (Auto) 0.1 0.0 Baso # (Auto) 0.0 0.0 Immature Gran # (Auto) 0.08 H 0.06 H Absolute Nucleated RBC 0.00 0.00 Immature Gran % 0 0 Nucleated RBC % 0 0 PT 11.0 INR 1.0 APTT 33.6 Sodium 137 138 Potassium 3.6 3.8 Chloride 101 104 Carbon Dioxide 25.8 24.4 Anion Gap 10 10 BUN 50 H 48 H Creatinine 4.0 H 3.9 H Estim Creat Clear Calc Not Performed. 15.5 L eGFR 12 L* 12 L* BUN/Creatinine Ratio 13 12 Glucose [address] Glu mg/dL 169 H Hemoglobin A1c 7.5 H Calculated Osmolality 291 290 Lactic Acid 1.4 Calcium 8.9 7.9 L Corrected Calcium 9.4 8.5 Phosphorus 3.8 4.1 Magnesium 1.6 1.9 Total Bilirubin 0.2 L 0.2 L AST 43 H 36 H ALT 20 14 Alkaline Phosphatase 102 96 Lactate Dehydrogenase 205 Troponin I 0.087 H* 0.068 H* B-Natriuretic Peptide 71 Total Protein 6.3 6.1 Albumin 3.4 3.3 L Globulin 2.9 2.8 Albumin/Globulin Ratio 1.2 1.2 Triglycerides 171 H Cholesterol 77 L LDL Cholesterol, Calc 14 HDL Cholesterol 29 L Cholesterol/HDL Ratio 2.7 L Lipase 59 H Procalcitonin 239.31 H TSH 0.58 Ur Collection Type Clean Catch Urine Color Yellow Urine Clarity Hazy Urine pH 7.5 H Ur Specific [place] 1.015 Urine Protein 3+ A Urine Glucose (UA) Negative Urine Ketones Negative Urine Blood 1+ A Urine Nitrite Negative Urine Bilirubin Negative Urine Urobilinogen (Auto) Negative Ur Leukocyte Esterase Positive Urine RBC < 1 Urine WBC 13 H Ur Squamous Epith Cells 1 Urine Bacteria 1+ A Quality Measures Quality Measures none Assessment & Plan Assessment Current Active Medications: Generic Name Dose Route Start Last Admin Trade Name Freq PRN Reason Stop Dose Admin Acetaminophen 650 mg 07/16/24 02:38 Acetaminophen 325 Mg Tablet PO 08/15/24 02:37 Q6H PRN Pain 1-3 and/or Fever >100.1 Azithromycin 250 mg 07/17/24 09:00 Azithromycin 250 Mg Tablet PO 07/21/24 08:59 QDAY ARLENE Dextrose 25 ml 07/16/24 02:41 Dextrose 50%-Water Inj 50 Ml Syringe IV 08/15/24 02:40 Q15MIN PRN BG 50-70 responsive npo pt Dextrose 50 ml 07/16/24 02:41 Dextrose 50%-Water Inj 50 Ml Syringe IV 08/15/24 02:40 Q15MIN PRN BG <50 OR BG <70 & pt unresponsive Glucagon 1 mg 07/16/24 02:41 Glucagon Inj 1 Mg Vial IM Q15MIN PRN BG <70, and no IV access Heparin Sodium (Porcine) 5,000 unit 07/16/24 09:00 Heparin Sod Inj 5000 Unit/Ml Vial SC 07/30/24 08:59 Q12HR ARLENE Sodium Chloride 1,000 mls @ 50 mls/hr 07/16/24 02:44 07/16/24 03:44 Ns IV 07/16/24 22:43 50 mls/hr .Q20H ARLENE Administration Ceftriaxone Sodium/Dextrose 50 mls @ 100 mls/hr 07/16/24 21:00 Rocephin/D5w 1gm Iv Premix IV 07/23/24 02:42 HS [facility] Insulin Human Lispro 0 unit 07/16/24 06:00 07/16/24 05:28 Insulin Lispro (Admelog) 1 Unit/0.01 Ml Unit SC 08/15/24 05:59 Not Given Q6HR [facility] Protocol Ondansetron HCl 4 mg 07/16/24 02:38 Ondansetron Inj 2 Mg/Ml Inj 2 Ml IV 08/15/24 02:37 Q6H PRN NAUSEA OR VOMITING Protocol Pantoprazole Sodium 40 mg 07/16/24 09:00 Pantoprazole Inj 40 Mg Vial IVP 08/15/24 08:59 QDAY [facility] Sennosides 1 tab 07/16/24 09:00 Senna Tablet PO 08/15/24 08:59 QDAY [facility] Protocol Plan 62-year-old female with history of CVA with functional quadriplegia, hypertension, hyperlipidemia, depression, anemia of chronic disease, CKD, insulin dependent type 2 diabetes, diverticulosis presenting from [facility] with change in mental status per staff members along with low blood pressure when checked will be admitted for sepsis secondary to pneumonia and urinary tract infection with BETHANY likely secondary to Tamiflu; will be treated with IV antibiotics and IV fluids. #Acute encephalopathy 2/2 #Sepsis secondary to pneumonia #Community-acquired pneumonia, Influenza PNA #Acute respiratory failure #Urinary tract infection #Leukocytosis Patient presenting from [facility] secondary to change in mental status and low blood pressure Unable to acquire history from patient as the patient is somnolent and only provides one-word answers In the ED, patient presented hypotensive and hypoxemic requiring 6 L nasal cannula Patient appears septic with new acute encephalopathy, WBC 17.9, end-organ dysfunction (acute renal failure), Pro-Nicholas 239 Chest x-ray shows left-sided pneumonia, urinalysis shows signs of urinary tract infection (unable to ascertain if patient has dysuria but she does have hypogastric tenderness) CT of head ordered to rule out intracranial/cerebral hemorrhage; no bleed noted but there is chronic microvascular changes along with encephalomalacia in the right inferior cerebellum secondary to old infarct Patient given 2 L normal saline boluses in the ED for sepsis alert Plan: IV ceftriaxone and azithromycin regimen ordered Blood cultures: Pending Urine cultures: Pending Restarted Tamiflu 30mg renally dosed, due to BETHANY #Acute renal failure #Diabetic nephropathy Per chart review, patient has history of CKD likely secondary to diabetic nephropathy Patient presenting now with acute renal failure creatinine of 4.0, BUN 50 and EGFR of 12 Likely secondary to sepsis versus worsening kidney function due to chronic medical condition Patient was given 75 mg of Tamiflu at SNF facility which can precipitate kidney failure Plan: IV maintenance fluids Follow-up with morning labs, expecting creatinine to improve with IV fluids If patient does not improve, consider consulting nephrology Patient does not meet emergent dialysis needs at this time (not volume overloaded, not acidotic, no hyperkalemia, no toxins) Avoid nephrotoxic agents Renally dose medications #Elevated troponin - resolved Patient presenting to the ED with elevated troponin 0.087 Patient denies chest pain,.Likely secondary to sepsis in setting of pneumonia, although patient does have some risk factors of developing ACS/CAD including hypertension, diabetes, CKD and history of CVA in the past Will D/C Trending troponin as it has been observed to be downtrending #Hypertension Patient has history of hypertension on metoprolol tartrate, amlodipine Patient presenting now with sepsis and hypotension Plan: As patient is hypotensive/normotensive, will defer starting antihypertensive's at this time. Will restart home meds if patient becomes hypertensive. #Insulin-dependent type 2 diabetes HOLD home medications: metformin, Januvia and insulin A1c: 7.5% Plan: Sliding scale insulin every 6 hours Bedside blood glucose every 6 hours #Microcytic anemia Per chart review, patient has history of anemia and has been given iron supplementation in the past Differentials include anemia of chronic disease, iron deficiency anemia, thalassemia Plan: Will continue to monitor #History of CVA with residual functional quadriplegia, dysphagia #History of trach and PEG 2015 since reversed Plan: Speech evaluation: Dysphagia 2, mechanically altered Carb consistent diet Hospital Management: Lines: PIV Diet: Dysphagia 2, mechanically altered Carb consistent diet Bowel: Senna as needed GI prophylaxis: Protonix DVT prophylaxis: Heparin subq Dispo: Sepsis secondary to pneumonia/UTI on IV antibiotics and IV fluids for acute renal failure Code: Full Patient's case was discussed with supervising attending physician Dr. Jocelyn Li M.D. Internal Medicine PGY-3
[2024-07-16] MEDS: PANTOPRAZOLE INJ 40 MG VIAL IVP (09:21)
[2024-07-16] MEDS: SENNA TABLET 1 TAB PO (09:21)
[2024-07-16] MEDS: HEPARIN SOD INJ 5000 UNIT/ML VIAL SC ×2 (09:21→20:00)
[2024-07-16] MEDS: SODIUM CHLORIDE 0.9% 500 ML 500 ML 999 ML IV (09:24)
--- NOTE | 2024-07-16 10:05 | PCS.ST ---
Swallow Eval completed. See report for details. Recommend Dysphagia 2/Reg liquids for now. ST will follow to advance if able.
--- NOTE | 2024-07-16 10:09 | XR_ITS ---
Examination: Duplex scan of the lower extremity, unilateral right complete Date and time of exam: July 16, 2024 1218 hours INDICATIONS: Right leg swelling and pain beginning today Technique: Duplex scan of the extremity veins using B-mode/grayscale imaging and Doppler spectral analysis and color flow Attention is directed to internal echogenicity, compression and augmentation involving these veins, color flow assessment, spectral analysis Findings: Major deep venous structures in the extremity demonstrate normal course and caliber. There is no evidence of deep vein thrombosis. Normal color flow and spectral analysis Impression: Negative for DVT..
[2024-07-16] MEDS: OSELTAMIVIR 30 MG CAPSULE PO (10:51)
--- NOTE | 2024-07-16 11:16 | PC.SS ---
Patient is a halfway resident of [facility]. She is quadriplegic and wheelchair bound. Patient has no family. Speaks very little words. She's currently on 02. Patient will need gurney transport upon discharge. Patient will return to [facility]. Patient was altered upon admission. Admitted for sepsis.
--- NOTE | 2024-07-16 13:09 | XR_ITS ---
Examination: Retroperitoneal ultrasound, complete Technique: Multiple high resolution grayscale images of the retroperitoneum obtained, including kidneys and bladder. Exam date and time:July 16, 2024 1350 hours INDICATIONS: Abdominal pain beginning 3 months ago with diagnosis of renal failure. FINDINGS: Right kidney 11.6 x 4.3 x 4.7 cm cortex 1.6 cm Left kidney 11.7 x 5.6 x 5.6 cm cortex 1.9 cm Moderate bilateral renal parenchymal scar formation No hydronephrosis No bladder mass or bladder calculi Bladder prevoid volume sooner 56 cc unable to void IMPRESSION: Bilateral renal cortical thinning Moderate bilateral renal parenchymal scar formation
[2024-07-16 13:56] LABS: Anion Gap 10 (7-16); BUN/Creatinine Ratio 13 Ratio (12-20); Blood Urea Nitrogen 46 mg/dL (9-23); Calcium 8.4 mg/dL (8.3-10.6); Carbon Dioxide 24.8 mMol/L (20.0-31.0); Chloride 106 mMol/L (98-107); Creatinine (Component) 3.6 mg/dL (0.6-1.3); Estimated Creatinine Clearance 16.8 mL/min (>60); Glucose 104 mg/dL (74-106); Osmolality,Calculated 293 (275-295); Potassium 3.2 mMol/L (3.4-5.1); Sodium 141 mMol/L (136-145); eGFR 14 See Note
--- NOTE | 2024-07-16 14:23 | PC.SS ---
rounding note: Patient not medically stable for discharge. Nephrology consult and ID consult placed. BETHANY
[2024-07-16] MEDS: POTASSIUM CHLORIDE 20 mEq TABCR 40 MEQ PO (15:20)
[2024-07-16 15:23] LABS: Chloride,Urine Random 75.9 mMol/L (55.0-125.0); Creatinine,Random Urine 24 mg/dL (30-125); Potassium,Urine Random 15 mMol/L (12-62); Sodium,Urine Random 77.3 mMol/L (20.0-110.0)
--- NOTE | 2024-07-16 15:56 | ESCONSULT_ITS ---
History of Present Illness Data of Consult Consult date: 07/16/24 Requesting Physician: Abel Gupta MD Primary Care Provider: Physician No Primary/Family Consult Narrative Reason for consult: BETHANY History of present illness: Ms. Higgins is a 62-year-old lady with extensive medical history of hypertension, dyslipidemia, stroke, depression, diabetes who is residing at [facility] transitional care was sent to the emergency department with altered mental status. Chart review done as I could not get any information from the patient. Apparently patient had a stroke in 2014 and had a trach and PEG and was sent to rehab. Over the years she is slowly recovered and is able to use a wheelchair however currently patient could not give me any information. Medications: Amlodipine, metformin, Januvia, long-acting insulin, esomeprazole, metoprolol tartrate In the ED, patient presented hypotensive 81/54, heart rate 81, respiratory rate 19, afebrile satting 95 on 6 L nasal cannula. Pertinent lab findings included fingerstick blood glucose 167, WBC 17.9, hemoglobin 11 with MCV of 75, platelet 192, potassium 3.6, BUN 50, creatinine 4.0, EGFR 12, lactic acid 1.4, magnesium 1.6, AST 43, ALT 20, troponin 0.087 and Pro-Nicholas 239. Urinalysis shows 3+ proteinuria, hematuria, positive leukocyte esterase, pyuria and +1 bacteria. EKG shows sinus rhythm, chest x-ray shows left-sided pneumonia and head CT is negative for any acute bleed but there is chronic microvascular changes along with encephalomalacia in the right inferior cerebellum secondary to old infarct Patient was admitted for sepsis secondary to pneumonia and urinary tract infection with BETHANY likely secondary to prerenal state. Patient was given IV fluids and IV antibiotics and renal consultation requested. Her last lab in this hospital was 2016 where creatinine was completely normal. No family around. 07/16/2024 patient currently seen in medical floor. Nonverbal. Labs, medications reviewed.WBC 14.9, hemoglobin 10.9, platelets 174. Sodium 141, potassium 3.2, BUN 46, creatinine 3.6, GFR 14. A1c 7.5, lactic acid 1.4, AST 36, ALT 14. Troponin tad elevated at 0.068. Lipids normal. Pro-Nicholas 239. Lipase 59, TSH 0.58. Urinalysis shows a 3+ protein. Urine protein/creatinine 2.5. Urine sodium 77 chest x-ray showed left base pneumonia. Head CT old infarct. No acute CVA. Doppler ultrasound of the right leg negative for DVT. Kidney ultrasound showed bilateral cortical thinning with no hydronephrosis. cc:: cc: Abel Gupta MD Review of Systems Review of Systems Narrative Review of Systems: Denies any chest pain, shortness of breath Past Medical History Past Medical History NEUROLOGIC: Positive Cerebrovascular Accident CARDIAC: Positive Cardiac Disorders, Hypercholesterolemia, Hypertension and Hypotension; Negative Congestive Heart Failure RESPIRATORY: Negative Chronic Obstructive Pulmonary Disease (COPD) GENITOURINARY: Positive Renal Disease ENDOCRINE: Positive Diabetes Mellitus Type 2; Negative Diabetes Mellitus Type 1 PSYCHO/SOCIAL: Positive Depression OTHER HISTORY: Positive Hospitalization, Falls (Last 07/14/2024) and Blood Transfusions; Negative Anesthesia Reactions Surgical History SURGICAL: Positive Tracheostomy and Gastrostomy Social History SMOKING STATUS: Unknown if ever smoked Meds Home Medications and Allergies Home Medications ?Medication ?Instructions ?Recorded ?Confirmed ?Type amlodipine 5 mg tablet 5 mg PO DAILY 07/16/24 07/16/24 History azithromycin 250 mg tablet 250 mg PO DAILY 07/16/24 07/16/24 History gabapentin 100 mg capsule 100 mg PO HS 07/16/24 07/16/24 History glucagon HCl 1 mg solution for 1 mg subcut Q20M PRN hypo 07/16/24 07/16/24 History injection (Glucagon (HCl) Emergency Kit) insulin glargine-yfgn 100 unit/mL 7 unit subcut AC 07/16/24 07/16/24 History (3 mL) subcutaneous pen insulin glargine-yfgn 100 unit/mL 25 unit subcut HS 07/16/24 07/16/24 History (3 mL) subcutaneous pen metformin 500 mg tablet 500 mg PO BID 07/16/24 07/16/24 History oseltamivir 75 mg capsule 75 mg PO BID 07/16/24 07/16/24 History rosuvastatin 20 mg tablet 20 mg PO HS 07/16/24 07/16/24 History sitagliptin phosphate 100 mg 100 mg PO DAILY 07/16/24 07/16/24 History tablet (Januvia) Allergies Allergy/AdvReac Type Severity Reaction Status Date / Time No Known Allergies Allergy Verified 08/17/17 21:19 Exam Vital Signs Temp Pulse Resp BP Pulse Ox O2 Del Method O2 Flow Rate 36.1 C 76 18 129/70 95 Nasal Cannula 1.5 07/16/24 12:00 07/16/24 12:00 07/16/24 12:00 07/16/24 12:00 07/16/24 12:00 07/16/24 12:00 07/16/24 12:00 Narrative Exam GENERAL APPEARANCE: Patient comfortable, alert and awake NECK: Neck supple, no JVD or bruit Old tracheostomy scar CARDIOVASCULAR: Heart regular, no murmurs LUNGS/CHEST: Chest clear to auscultation. No rales, rhonchi, wheezing ABDOMEN: Soft, nontender, nondistended. No masses. Normal bowel sounds. Previous G-tube was removed EXTREMITIES: No edema, clubbing or cyanosis. SKIN: Skin exam normal without any rashes MUSCULOSKELETAL: In bed NEUROLOGICAL : More alert and awake Results Labs 07/18/24 04:43 07/18/24 04:43 Labs: Short CBC 07/15/24 07/16/24 Range/Units 21:50 04:33 WBC 17.9 H 14.9 H (3.6-11.0) Thou/mm3 Hgb 11.0 L 10.9 L (12.0-16.0) g/dL Hct 33.9 L 34.0 L (36.0-46.0) % Plt Count 192 174 (140-440) Thou/mm3 [facility] 07/15/24 07/16/24 07/16/24 21:50 04:33 13:20 Sodium 137 138 141 Potassium 3.6 3.8 3.2 L D Chloride 101 104 106 Carbon Dioxide 25.8 24.4 24.8 BUN 50 H 48 H 46 H Creatinine 4.0 H 3.9 H 3.6 H Glucose 166 H 141 H 104 Calcium 8.9 7.9 L 8.4 Cardiac Enzymes 07/15/24 07/16/24 Range/Units 21:50 04:33 Troponin I 0.087 H* 0.068 H* (0.0-0.045) ng/mL Liver Function 07/15/24 07/16/24 Range/Units 21:50 04:33 Total Bilirubin 0.2 L 0.2 L (0.3-1.2) mg/dL AST 43 H 36 H (0-34) U/L ALT 20 14 (10-49) U/L Alkaline Phosphatase 102 96 (46-116) U/L Albumin 3.4 3.3 L (3.4-4.8) gm/dL Urine 07/15/24 Range/Units 22:04 Urine Color Yellow (Lt Yel-Yel) Urine Clarity Hazy (Clear/Hazy) Urine pH 7.5 H (5.0-7.0) Ur Specific [place] 1.015 (1.001-1.035) Urine Protein 3+ A (Neg - Trace) Urine Glucose (UA) Negative (Negative) Assessment & Plan Additional Assessment & Plan Additional Plan: #Acute renal failure with underlying diabetic nephropathy (nonnephrotic range proteinuria)-secondary to prerenal azotemia. Patient presented with pneumonia, hypotension and hypoxia. Agree with IV fluids, IV antibiotics. Renal ultrasound showed no hydronephrosis. #Acute encephalopathy 2/2 #Sepsis secondary to pneumonia #Community-acquired pneumonia, Influenza PNA #Acute respiratory failure #Urinary tract infection Continue with IV ceftriaxone, azithromycin. #Elevated troponin Probably related to stress response. #Insulin-dependent type 2 diabetes Patient is on metformin, Januvia and insulin at the facility Hold both medications. #Microcytic anemia Possibly related to underlying renal insufficiency. History of thalassemia per chart. #History of CVA #History of functional quadriplegia, dysphagia #History of trach and PEG [address] Caldwell for allowing me to participate in the care of Ms. Higgins
[2024-07-16 17:51] LABS: Protein Total, Random Urine 62 mg/dL (1-14)
[2024-07-16] MEDS: ACETAMINOPHEN 325 MG TABLET 650 MG PO (19:06)
[2024-07-16] MEDS: cefTRIAXone/D5w 1gm IV premix 50 ML IV (20:00)
[2024-07-17] VITALS (10 sets, daily range): BP systolic 112–148; BP diastolic 60–86; PULSE 64–99; RESP 16–18; TEMP 36.1–36.7; O2SAT 93–99; BMI 31.4; BMI 31.2
--- NOTE | 2024-07-17 05:19 | EKG_ITS ---
[facility] (Formerly [facility]) Test Date: 2024-07-17 Pat Name: NICKI FELICIANO [facility] Gender[facility] Female Shellfish Weigher: BI : 1960 Requested By: Alexa Rodriguez Order Number: [id number] Reading MD: Alexa Rodriguez Measurements Intervals [place] Rate: 97 P: -5 PA: 165 QRS: 29 QRSD: 88 T: 61 QT: 387 QTc: 493 Interpretive Statements SINUS RHYTHM WITH OCCASIONAL VENTRICULAR PREMATURE COMPLEXES WITH FREQUENT SUPRAVENTRICULAR PREMATURE COMPLEXES ABNORMAL RHYTHM ECG Compared to ECG 07/15/2024 21:35:35 Ventricular premature complex(es) now present T-wave abnormality no longer present /store/S0/[id number]/[id number].pdf
--- NOTE | 2024-07-17 05:20 | PC.NURSE ---
instructional technology instructor called and let me know that pt having Afib with HR 80's and converted back and forth to SR with HR 80's, pts previous rhythm is SR with PAC's. MD Rodriguez made aware, ordered to do EKG. ELIZABETH Anton made aware as well.
[2024-07-17 06:03] LABS: Basophils % (Auto) 0 % (0-2.5); Eosinophils # (Auto) 0.1 Thou/mm3 (0.0-0.5); Eosinophils % (Auto) 1 % (0-10); Hematocrit 35.5 % (36.0-46.0); Hemoglobin 11.3 g/dL (12.0-16.0); Immature Granulocytes % (Auto) 0 % (0-0); Immature Granulocytes Auto 0.02 Thou/mm3 (0.00-0.00); Lymphocytes # (Auto) 2.4 Thou/mm3 (1.0-4.8); Lymphocytes % (Auto) 31 % (10-50); Mean Corpuscular HGB Conc 31.8 g/dl (31.0-37.0); Mean Corpuscular Hemoglobin 24.2 pg (25.0-35.0); Mean Corpuscular Volume 76 fL (80-100); Monocytes # (Auto) 0.4 Thou/mm3 (0.0-0.8); Monocytes % (Auto) 5 % (0-12); Neutrophils # (Auto) 4.8 Thou/mm3 (1.8-7.7); Neutrophils % (Auto) 63 % (37-80); Nucleated Red Blood Cell % 0 /100 WBC (0); Platelet Count 170 Thou/mm3 (140-440); RDW Standard Deviation 44.8 fL (36.4-46.3); Red Blood Count 4.67 Miln/mm3 (4.00-5.20); White Blood Count 7.7 Thou/mm3 (3.6-11.0)
[2024-07-17 06:13] LABS: Prothrombin Time 10.5 Seconds (9.0-12.2)
--- NOTE | 2024-07-17 06:37 | PC.NURSE ---
MD Hodgson made aware that pt having frequent PVC's and PAC's and HR nelida down to 44, at this time HR is 83, per MD to wait for the labs to come back and relay the result.
[2024-07-17 06:54] LABS: Alanine Aminotransferase 20 U/L (10-49); Albumin, Serum 3.7 gm/dL (3.4-4.8); Albumin/Globulin Ratio 1.2 (1.2-2.2); Alkaline Phosphatase 103 U/L (46-116); Anion Gap 12 (7-16); Aspartate Amino Transferase 43 U/L (0-34); BUN/Creatinine Ratio 12 Ratio (12-20); Bilirubin,Total 0.2 mg/dL (0.3-1.2); Blood Urea Nitrogen 41 mg/dL (9-23); Calcium 8.6 mg/dL (8.3-10.6); Calcium (Corrected) 8.8 mg/dL (8.5-10.1); Chloride 106 mMol/L (98-107); Creatinine (Component) 3.3 mg/dL (0.6-1.3); Estimated Creatinine Clearance 18.3 mL/min (>60); Glucose 92 mg/dL (74-106); Osmolality,Calculated 293 (275-295); Potassium 3.4 mMol/L (3.4-5.1); Sodium 142 mMol/L (136-145); Total Protein 6.7 gm/dL (5.7-8.2); eGFR 15 See Note
[2024-07-17 07:08] LABS: Magnesium 2.8 mg/dL (1.6-2.6)
[2024-07-17] MEDS: PANTOPRAZOLE INJ 40 MG VIAL IVP (08:36)
[2024-07-17] MEDS: AZITHROMYCIN 250 MG TABLET PO (08:37)
[2024-07-17] MEDS: SODIUM CHLORIDE 0.9% 500 ML 500 ML 999 ML IV (08:37)
[2024-07-17] MEDS: POTASSIUM CHLORIDE 20 mEq TABCR 40 MEQ PO (08:37)
[2024-07-17] MEDS: SENNA TABLET 1 TAB PO (08:37)
[2024-07-17] MEDS: HEPARIN SOD INJ 5000 UNIT/ML VIAL SC ×2 (08:38→21:41)
[2024-07-17] MEDS: OSELTAMIVIR 30 MG CAPSULE PO (08:45)
[2024-07-17] MEDS: INSULIN LISPRO (AdmeLOG) 1 UNIT/0.01 ML UNIT SC ×2 (11:09→16:19)
--- NOTE | 2024-07-17 11:17 | PD.RESPRO ---
Documentation for date of: 07/17/24 Subjective Subjective Interval history: 62-year-old female with history of CVA with functional quadriplegia, hypertension, hyperlipidemia, depression, anemia of chronic disease, CKD, insulin dependent type 2 diabetes, diverticulosis presenting to the ED from [facility] with change in mental status per staff members along with low blood pressure when checked. History taken mostly from ED physician and reports from [facility] transitional care as the patient is verbal but mostly monitoring her words and seems to be debilitated. Per chart review, patient had CVA episode sometime in 2014 and was trach and PEG, admitted to a subacute facility at which point she improved over several years where she was able to use wheelchair. Per notes, patient does not have any family support and has been at [facility] for several years. When she presented to the ED, ED physician notes that the patient was altered and had some confusion which is out of her normal baseline. Interviewed the patient, she is Swedish-speaking, at which point she stated that she is having chest pain and difficulty with initiating breaths; however, she denies having any nausea/vomiting/diarrhea, sick contacts or any other concerning symptoms In the ED, patient presented hypotensive 81/54, heart rate 81, respiratory rate 19, afebrile satting 95 on 6 L nasal cannula. Pertinent lab findings included fingerstick blood glucose 167, WBC 17.9, hemoglobin 11 with MCV of 75, platelet 192, potassium 3.6, BUN 50, creatinine 4.0, EGFR 12, lactic acid 1.4, magnesium 1.6, AST 43, ALT 20, troponin 0.087 and Pro-Nicholas 239. Urinalysis shows 3+ proteinuria, hematuria, positive leukocyte esterase, pyuria and +1 bacteria. EKG shows sinus rhythm, chest x-ray shows left-sided pneumonia and head CT is negative for any acute bleed but there is chronic microvascular changes along with encephalomalacia in the right inferior cerebellum secondary to old infarct Patient admitted for sepsis secondary to pneumonia and urinary tract infection with BETHANY likely secondary to Tamiflu; will be treated with IV antibiotics and IV fluids. 07/16/2024: Patient interviewed and examined at bedside this a.m. No acute overnight events reported. Patient's renal function noted to be markedly elevated with a BUN/CR of 48 and 3.9 respectively. Due to patient presenting with hypotension, DDX of ATN is suspected, will consult Nephrology services for further recommendations. Patient given IV fluid bolus of 500 cc normal saline. Repeat BMP pending. Patient also noted to have a rash above the left eyebrow in the V1 ophthalmic region of cranial nerve V with Concern for zoster opthalmicus. Will defer starting acyclovir at this time due to patient's markedly elevated creatinine and consult ID for further recommendations. 07/17/2024: Patient interviewed and examined at bedside this a.m. No acute overnight events were reported. Patient's BUN and creatinine appear to be improving with IV fluid boluses as creatinine is 3.3 today from 3.6 yesterday. Patient's I/O's are significant for intake of 850 output of 2600 with a net balance of -1750. Will continue to administer fluid boluses to avoid dehydration. Exam Vital Signs Temp Pulse Resp BP Pulse Ox O2 Del Method O2 Flow Rate 97.0 F 86 18 147/86 H 96 Nasal Cannula 1.5 07/17/24 08:00 07/17/24 08:00 07/17/24 08:00 07/17/24 08:00 07/17/24 08:00 07/17/24 08:00 07/17/24 08:00 Narrative Exam General: Not in any visible or apparent acute distress, somnolent, sick appearing, alert but minimally interactive HEENT: NC/AT moist mucous membranes CVS: S1S2 Regular rate and rhythm, No murmurs, rubs or gallops Lungs: Normal respiratory effort, no wheezing rhonchi or rales, CTAB Abd: Soft, no tenderness to palpation Ext: No edema, warm well perfused, decreased strength secondary to functional quadriplegia Skin: Intact, 2x3 cm erythematous flat, non-raised rash above the left eyebrow noted Neuro: AOx2 Baseline Objective Labs 07/17/24 05:34 07/17/24 05:34 Labs: Laboratory Results - last 24 hr 07/16/24 07/16/24 07/17/24 13:20 14:07 05:34 WBC 7.7 D RBC 4.67 Hgb 11.3 L Hct 35.5 L MCV 76 L MCH 24.2 L MCHC 31.8 RDW Std Deviation 44.8 Plt Count 170 Neut % (Auto) 63 Lymph % (Auto) 31 Bartholomew % (Auto) 5 Eos % (Auto) 1 Baso % (Auto) 0 Neut # (Auto) 4.8 Lymph # (Auto) 2.4 Bartholomew # (Auto) 0.4 Eos # (Auto) 0.1 Baso # (Auto) 0.0 Immature Gran # (Auto) 0.02 H Absolute Nucleated RBC 0.00 Immature Gran % 0 Nucleated RBC % 0 PT 10.5 INR 1.0 Sodium 141 142 Potassium 3.2 L D 3.4 Chloride 106 106 Carbon Dioxide 24.8 24.0 Anion Gap 10 12 BUN 46 H 41 H Creatinine 3.6 H 3.3 H Estim Creat Clear Calc 16.8 L 18.3 L eGFR 14 L* 15 L BUN/Creatinine Ratio 13 12 Glucose 104 92 Calculated Osmolality 293 293 Calcium 8.4 8.6 Corrected Calcium 8.8 Magnesium 2.8 H Total Bilirubin 0.2 L AST 43 H ALT 20 Alkaline Phosphatase 103 Total Protein 6.7 Albumin 3.7 Globulin 3.0 Albumin/Globulin Ratio 1.2 Ur Random Creatinine 24 L U Random Total Protein 62 H Ur Random Sodium 77.3 Ur Random Potassium 15 Ur Random Chloride 75.9 Quality Measures Quality Measures none Assessment & Plan Assessment Current Active Medications: Generic Name Dose Route Start Last Admin Trade Name Freq PRN Reason Stop Dose Admin Acetaminophen 650 mg 07/16/24 02:38 07/16/24 19:06 Acetaminophen 325 Mg Tablet PO 08/15/24 02:37 650 mg Q6H PRN Administration Pain 1-3 and/or Fever >100.1 Albuterol/Ipratropium 3 ml 07/17/24 15:00 Albuterol/Ipratropium (Duoneb) Rt Gosia 3 Ml Nebu INH 08/16/24 14:59 Q8HRRT [facility] Atorvastatin Calcium 80 mg 07/17/24 21:00 Atorvastatin Calcium 20 Mg Tablet PO 08/16/24 20:59 HS [facility] Protocol Azithromycin 250 mg 07/17/24 09:00 07/17/24 08:37 Azithromycin 250 Mg Tablet PO 07/21/24 08:59 250 mg QDAY ARLENE Administration Dextrose 25 ml 07/16/24 02:41 Dextrose 50%-Water Inj 50 Ml Syringe IV 08/15/24 02:40 Q15MIN PRN BG 50-70 responsive npo pt Dextrose 50 ml 07/16/24 02:41 Dextrose 50%-Water Inj 50 Ml Syringe IV 08/15/24 02:40 Q15MIN PRN BG <50 OR BG <70 & pt unresponsive Gabapentin 100 mg 07/17/24 21:00 Gabapentin 100 Mg Capsule PO 08/16/24 20:59 HS ARLENE Glucagon 1 mg 07/16/24 02:41 Glucagon Inj 1 Mg Vial IM Q15MIN PRN BG <70, and no IV access Heparin Sodium (Porcine) 5,000 unit 07/16/24 09:00 07/17/24 08:38 Heparin Sod Inj 5000 Unit/Ml Vial SC 07/30/24 08:59 5,000 unit Q12HR ARLENE Administration Ceftriaxone Sodium/Dextrose 50 mls @ 100 mls/hr 07/16/24 21:00 07/16/24 20:00 Rocephin/D5w 1gm Iv Premix IV 07/23/24 02:42 100 mls/hr HS ARLENE Administration Insulin Human Lispro 0 unit 07/16/24 17:00 07/17/24 11:09 Insulin Lispro (Admelog) 1 Unit/0.01 Ml Unit SC 08/15/24 16:59 1 unit AC ARLENE Administration Protocol Ondansetron HCl 4 mg 07/16/24 02:38 Ondansetron Inj 2 Mg/Ml Inj 2 Ml IV 08/15/24 02:37 Q6H PRN NAUSEA OR VOMITING Protocol Oseltamivir Phosphate 30 mg 07/16/24 10:00 07/17/24 08:45 Oseltamivir 30 Mg Capsule PO 07/23/24 08:59 30 mg QDAY ARLENE Administration Pantoprazole Sodium 40 mg 07/16/24 09:00 07/17/24 08:36 Pantoprazole Inj 40 Mg Vial IVP 08/15/24 08:59 40 mg QDAY ARLENE Administration Sennosides 1 tab 07/16/24 09:00 07/17/24 08:37 Senna Tablet PO 08/15/24 08:59 1 tab QDAY ARLENE Administration Protocol Plan 62-year-old female with history of CVA with functional quadriplegia, hypertension, hyperlipidemia, depression, anemia of chronic disease, CKD, insulin dependent type 2 diabetes, diverticulosis presenting from [facility] with change in mental status per staff members along with low blood pressure when checked will be admitted for sepsis secondary to pneumonia and urinary tract infection with BETHANY likely secondary to Tamiflu; will be treated with IV antibiotics and IV fluids. #Acute encephalopathy 2/2 #Sepsis secondary to pneumonia #Community-acquired pneumonia, Influenza PNA #Acute respiratory failure #Urinary tract infection #Leukocytosis Patient presenting from [facility] transitional care secondary to change in mental status and low blood pressure Unable to acquire history from patient as the patient is somnolent and only provides one-word answers In the ED, patient presented hypotensive and hypoxemic requiring 6 L nasal cannula Patient appears septic with new acute encephalopathy, WBC 17.9, end-organ dysfunction (acute renal failure), Pro-Nicholas 239 Chest x-ray shows left-sided pneumonia, urinalysis shows signs of urinary tract infection (unable to ascertain if patient has dysuria but she does have hypogastric tenderness) CT of head ordered to rule out intracranial/cerebral hemorrhage; no bleed noted but there is chronic microvascular changes along with encephalomalacia in the right inferior cerebellum secondary to old infarct Patient given 2 L normal saline boluses in the ED for sepsis alert Plan: Continue IV ceftriaxone and azithromycin regimen ordered Blood cultures: Negative at 24 hours Urine cultures: Pending Continue Tamiflu 30mg renally dosed, due to BETHANY #Acute renal failure -improved #Diabetic nephropathy Per chart review, patient has history of CKD likely secondary to diabetic nephropathy Patient presenting now with acute renal failure creatinine of 4.0, BUN 50 and EGFR of 12 Likely secondary to sepsis versus worsening kidney function due to chronic medical condition Patient was given 75 mg of Tamiflu at SNF facility which can precipitate kidney failure Plan: IV maintenance fluids Follow-up with morning labs, expecting creatinine to improve with IV fluids If patient does not improve, consider consulting nephrology Patient does not meet emergent dialysis needs at this time (not volume overloaded, not acidotic, no hyperkalemia, no toxins) Avoid nephrotoxic agents Renally dose medications #Elevated troponin - resolved Patient presenting to the ED with elevated troponin 0.087 Patient denies chest pain,.Likely secondary to sepsis in setting of pneumonia, although patient does have some risk factors of developing ACS/CAD including hypertension, diabetes, CKD and history of CVA in the past Will D/C Trending troponin as it has been observed to be downtrending #Hypertension Patient has history of hypertension on metoprolol tartrate, amlodipine Patient presenting now with sepsis and hypotension Plan: As patient is hypotensive/normotensive, will defer starting antihypertensive's at this time. Will restart home meds if patient becomes hypertensive. #Insulin-dependent type 2 diabetes HOLD home medications: metformin, Januvia and insulin A1c: 7.5% Plan: Sliding scale insulin every 6 hours Bedside blood glucose every 6 hours #Microcytic anemia Per chart review, patient has history of anemia and has been given iron supplementation in the past Differentials include anemia of chronic disease, iron deficiency anemia, thalassemia Plan: Will continue to monitor #History of CVA with residual functional quadriplegia, dysphagia #History of trach and PEG 2014 since reversed Plan: Speech evaluation: Dysphagia 2, mechanically altered Carb consistent diet Hospital Management: Lines: PIV Diet: Dysphagia 2, mechanically altered Carb consistent diet Bowel: Senna as needed GI prophylaxis: Protonix DVT prophylaxis: Heparin subq Dispo: Sepsis secondary to pneumonia/UTI on IV antibiotics and IV fluids for acute renal failure Code: Full Patient's case was discussed with supervising attending physician Dr. Jocelyn Li M.D. Internal Medicine PGY-3 Attending Provider Attestation/Addendum I have discussed and was present for the essential components of the history, physical examination, diagnosis, and treatment plan with the resident. I agree with the patient's care as documented by the resident and amended herein by me. Jason Banks DO. Patient seen and evaluated this AM. Vital signs stable, patient afebrile overnight, I's/O, 850/2600. Patient presently on NC 1.5 L, 96%. Creatinine improving to 3.3 today. Will continue antibiotics for, Tamiflu and appreciate nephrology recommendations for acute renal failure and nephritic range proteinuria. Will continue monitor closely Although this document has been carefully reviewed, there may still be some phonetic and other typographical errors. These errors are purely grammatical due to imperfections in the software program and should not be construed in any way to compromise the substance of the patient's medical care during this visit.
--- NOTE | 2024-07-17 11:47 | PD.NEPHPROG ---
Documentation for date of: 07/17/24 Subjective Subjective Interval history: Ms. Higgins is a 62-year-old lady with extensive medical history of hypertension, dyslipidemia, stroke, depression, diabetes who is residing at [facility] transitional care was sent to the emergency department with altered mental status. Chart review done as I could not get any information from the patient. Apparently patient had a stroke in 2014 and had a trach and PEG and was sent to rehab. Over the years she is slowly recovered and is able to use a wheelchair however currently patient could not give me any information. Medications: Amlodipine, metformin, Januvia, long-acting insulin, esomeprazole, metoprolol tartrate In the ED, patient presented hypotensive 81/54, heart rate 81, respiratory rate 19, afebrile satting 95 on 6 L nasal cannula. Pertinent lab findings included fingerstick blood glucose 167, WBC 17.9, hemoglobin 11 with MCV of 75, platelet 192, potassium 3.6, BUN 50, creatinine 4.0, EGFR 12, lactic acid 1.4, magnesium 1.6, AST 43, ALT 20, troponin 0.087 and Pro-Nicholas 239. Urinalysis shows 3+ proteinuria, hematuria, positive leukocyte esterase, pyuria and +1 bacteria. EKG shows sinus rhythm, chest x-ray shows left-sided pneumonia and head CT is negative for any acute bleed but there is chronic microvascular changes along with encephalomalacia in the right inferior cerebellum secondary to old infarct Patient was admitted for sepsis secondary to pneumonia and urinary tract infection with BETHANY likely secondary to prerenal state. Patient was given IV fluids and IV antibiotics and renal consultation requested. Her last lab in this hospital was 2016 where creatinine was completely normal. No family around. 07/16/2024 patient currently seen in medical floor. Nonverbal. Labs, medications reviewed.WBC 14.9, hemoglobin 10.9, platelets 174. Sodium 141, potassium 3.2, BUN 46, creatinine 3.6, GFR 14. A1c 7.5, lactic acid 1.4, AST 36, ALT 14. Troponin tad elevated at 0.068. Lipids normal. Pro-Nicholas 239. Lipase 59, TSH 0.58. Urinalysis shows a 3+ protein. Urine protein/creatinine 2.5. Urine sodium 77 chest x-ray showed left base pneumonia. Head CT old infarct. No acute CVA. Doppler ultrasound of the right leg negative for DVT. Kidney ultrasound showed bilateral cortical thinning with no hydronephrosis. 07/17/2024 patient currently seen in medical floor. She is more alert and awake today. Labs reviewed. BUN and creatinine improving. Suspect she has underlying CKD with significant proteinuria. Review of Systems Review of Systems Narrative Review of Systems: Patient denies any chest pain, shortness of breath. Exam Vital Signs Temp Pulse Resp BP Pulse Ox O2 Del Method O2 Flow Rate 36.1 C 86 18 147/86 H 96 Nasal Cannula 1.5 07/17/24 08:00 07/17/24 08:00 07/17/24 08:00 07/17/24 08:00 07/17/24 08:00 07/17/24 08:00 07/17/24 08:00 Narrative Exam GENERAL APPEARANCE: Patient comfortable, alert and awake NECK: Neck supple, no JVD or bruit Old tracheostomy scar CARDIOVASCULAR: Heart regular, no murmurs LUNGS/CHEST: Chest clear to auscultation. No rales, rhonchi, wheezing ABDOMEN: Soft, nontender, nondistended. No masses. Normal bowel sounds. Previous G-tube was removed EXTREMITIES: No edema, clubbing or cyanosis. SKIN: Skin exam normal without any rashes MUSCULOSKELETAL: In bed NEUROLOGICAL : No neurological deficits Objective Labs 07/18/24 04:43 07/18/24 04:43 Labs: Laboratory Results - last 24 hr 07/16/24 07/16/24 07/17/24 13:20 14:07 05:34 WBC 7.7 D RBC 4.67 Hgb 11.3 L Hct 35.5 L MCV 76 L MCH 24.2 L MCHC 31.8 RDW Std Deviation 44.8 Plt Count 170 Neut % (Auto) 63 Lymph % (Auto) 31 [place] % (Auto) 5 Eos % (Auto) 1 Baso % (Auto) 0 Neut # (Auto) 4.8 Lymph # (Auto) 2.4 Travis # (Auto) 0.4 Eos # (Auto) 0.1 Baso # (Auto) 0.0 Immature Gran # (Auto) 0.02 H Absolute Nucleated RBC 0.00 Immature Gran % 0 Nucleated RBC % 0 PT 10.5 INR 1.0 Sodium 141 142 Potassium 3.2 L D 3.4 Chloride 106 106 Carbon Dioxide 24.8 24.0 Anion Gap 10 12 BUN 46 H 41 H Creatinine 3.6 H 3.3 H Estim Creat Clear Calc 16.8 L 18.3 L eGFR 14 L* 15 L BUN/Creatinine Ratio 13 12 Glucose 104 92 Calculated Osmolality 293 293 Calcium 8.4 8.6 Corrected Calcium 8.8 Magnesium 2.8 H Total Bilirubin 0.2 L AST 43 H ALT 20 Alkaline Phosphatase 103 Total Protein 6.7 Albumin 3.7 Globulin 3.0 Albumin/Globulin Ratio 1.2 Ur Random Creatinine 24 L U Random Total Protein 62 H Ur Random Sodium 77.3 Ur Random Potassium 15 Ur Random Chloride 75.9 Assessment & Plan Additional Assessment & Plan Additional Plan: #Acute renal failure with underlying diabetic nephropathy (nonnephrotic range proteinuria)-secondary to prerenal azotemia. Patient presented with pneumonia, hypotension and hypoxia. Agree with IV fluids, IV antibiotics. Renal ultrasound showed no hydronephrosis. #Acute encephalopathy 2/2 #Sepsis secondary to pneumonia #Community-acquired pneumonia, Influenza PNA #Acute respiratory failure #Urinary tract infection Continue with IV ceftriaxone, azithromycin. #Elevated troponin Probably related to stress response. #Insulin-dependent type 2 diabetes Patient is on metformin, Januvia and insulin at the facility Hold both medications. #Microcytic anemia Possibly related to underlying renal insufficiency. History of thalassemia per chart. #History of CVA #History of functional quadriplegia, dysphagia #History of trach and PEG 2014
--- NOTE | 2024-07-17 14:49 | PC.DIETICIAN ---
1. added Flavored Hamilton 1 pkt BID daily after lunch and dinner, mix with 6-8 oz water for targeted nutrition and wound healing, RN to administer as medication 2. Recommned: add Vitamin C 500mg BID daily, zinc 220mg, Multivitamin-Mineral daily to ensure adequate nutrient intake and promote wound healing.
[2024-07-17] MEDS: ALBUTEROL/IPRATROPIUM (Duoneb) RT SOL 3 ML NEBU INH ×2 (15:02→23:24)
[2024-07-17] MEDS: ACETAMINOPHEN 325 MG TABLET 650 MG PO (18:02)
[2024-07-17] MEDS: GABAPENTIN 100 MG CAPSULE PO (21:40)
[2024-07-17] MEDS: ATORVASTATIN CALCIUM 20 MG TABLET 80 MG PO (21:40)
[2024-07-17] MEDS: cefTRIAXone/D5w 1gm IV premix 50 ML IV (21:41)
[2024-07-18] VITALS (14 sets, daily range): BP systolic 81–172; BP diastolic 55–85; PULSE 71–145; RESP 16–23; TEMP 36–36.8; O2SAT 92–98
--- NOTE | 2024-07-18 01:13 | EKG_ITS ---
[facility] Test Date: 2024-07-18 Pat Name: NICKI FELICIANO [facility] Gender: Female Hide Cleaner: BAKARI : 1960 Requested By: Abel Taylor Order Number: [id number] Reading MD: Abel Taylor Measurements Intervals [place] Rate: 130 P: [place]: QRS: 12 QRSD: 96 T: 42 QT: 323 QTc: 475 Interpretive Statements ATRIAL FIBRILLATION WITH RAPID VENTRICULAR RESPONSE NONSPECIFIC ST & T-WAVE ABNORMALITY ABNORMAL RHYTHM ECG Compared to ECG 07/17/2024 05:38:52 T-wave abnormality now present Sinus rhythm no longer present Ventricular premature complex(es) no longer present /store/S0/[id number]/[id number].pdf
--- NOTE | 2024-07-18 01:18 | PC.NURSE ---
Dr. Gupta notified regarding patient converting to A. Fib with RVR with HR 120s-150s and BP 81/55. New orders received.
[2024-07-18] MEDS: SODIUM CHLORIDE 0.9% 1000 ML 1,000 ML 999 ML IV (01:28)
[2024-07-18 02:30] LABS: Magnesium 2.1 mg/dL (1.6-2.6); Potassium 3.2 mMol/L (3.4-5.1); Troponin I < 0.020 ng/mL (0.0-0.045)
[2024-07-18] MEDS: ACETAMINOPHEN 325 MG TABLET 650 MG PO ×3 (02:53→21:47)
--- NOTE | 2024-07-18 02:55 | PC.NURSE ---
Dr. Gupta updated on patient's improved HR and BP as well as lab results.
--- NOTE | 2024-07-18 04:06 | PC.NURSE ---
Dr. Hodgson notified that patient converted back to sinus rhythm in the 80s and verifying recent med orders.
[2024-07-18] MEDS: POTASSIUM CHLORIDE 20 mEq TABCR PO ×2 (04:19→06:17)
[2024-07-18] MEDS: SODIUM CHLORIDE 0.9% 1000 ML 1,000 ML 125 ML IV (04:19)
[2024-07-18] MEDS: METOPROLOL TARTRATE 25 MG TABLET PO (04:22)
--- NOTE | 2024-07-18 04:28 | ECHO_ITS ---
Transthoracic Echo Report Ht (in): 66 Wt (lb): 194 Exam Location: Portable Status: Inpatient Interactive Media Director: Tracy Zaragoza Indications: Procedure Performed: BP: 159 / 82 HR: 72 Rhythm: Sinus Technical Quality: Technically difficult study MEASUREMENTS (Male / Female) Normal Values 2D ECHO LVOT Diameter 1.9 cm LA Volume Index 27.9 cm?/m? 16 - 28 cm?/m? Ascending Aorta Diameter 3.3 cm M-MODE Aortic Root Diameter MM 2.8 cm LA Systolic Diameter MM 3.3 cm LA Ao Ratio MM 1.2 AV Cusp Separation MM 2.1 cm DOPPLER AV Peak Velocity 159.0 cm/s AV Peak Gradient 10.1 mmHg AV Mean Gradient 5.0 mmHg AV Velocity Time Integral 31.6 cm LVOT Peak Velocity 92.4 cm/s LVOT Peak Gradient 3.4 mmHg LVOT Velocity Time Integral 20.1 cm LVOT Cardiac Index 1998.3 cm?/min?m? AV Area Cont Eq vti 1.8 cm? AV Area Cont Eq pk 1.6 cm? MV Peak Velocity 94.7 cm/s MV Peak Gradient 3.6 mmHg MV Mean Velocity 67.3 cm/s MV Mean Gradient 2.0 mmHg MV Area PHT 3.7 cm? Mitral E Point Velocity 66.0 cm/s Mitral A Point Velocity 98.0 cm/s Mitral E to A Ratio 0.7 LV E' Lateral Velocity 6.0 cm/s Mitral E to LV E' Lateral Ratio 11.0 LV E' Septal Velocity 5.5 cm/s Mitral E to LV E' Septal Ratio 11.9 FINDINGS Left Ventricle Normal left ventricular size, wall thickness, systolic function with no obvious regional wall motion abnormalities. The ejection fraction is visually estimated at 60-65%. Right Ventricle The right ventricle is normal in size and systolic function. Left Atrium The left atrium is normal by two-dimensional, color flow and Doppler imaging with no structural abnormalities, no thrombus formation present. Right Atrium The right atrium is normal by two-dimensional imaging, color flow and Doppler imaging with no struct ural abnormalities, no thrombus formation present. Atrial Septum The interatrial septum appears normal with no evidence of a shunt. Aorta The aorta is normal by two-dimensional, color flow and Doppler interrogation. Mitral Valve The mitral valve is normal by two-dimensional, color flow and Doppler interrogation. There is trace mitral valve regurgitation. Aortic Valve The aortic valve is trileaflet and normal by two-dimensional, color flow and Doppler interrogation. There is no significant aortic valve regurgitation. Tricuspid Valve The tricuspid valve is normal by two-dimensional, color flow and Doppler interrogation. There is no significant tricuspid valve regurgitation. Pulmonic Valve The pulmonic valve is not well visualized. There is no significant pulmonic valve regurgitation. Vessels The pulmonary artery appears normal. The inferior vena cava pulmonary and hepatic veins appear alberto l. Pericardium The pericardium is normal by two-dimensional imaging. There is no significant pericardial effusion. CONCLUSIONS Normal LV size and function. Estimated EF 60-65% Normal RV size and function. Trace MR. Pito Rosario (Electronically Signed) Final Date: 20 July 2024 09:13
[2024-07-18 04:59] LABS: Basophils % (Auto) 0 % (0-2.5); Eosinophils % (Auto) 0 % (0-10); Hematocrit 30.4 % (36.0-46.0); Hemoglobin 9.6 g/dL (12.0-16.0); Immature Granulocytes % (Auto) 0 % (0-0); Immature Granulocytes Auto 0.01 Thou/mm3 (0.00-0.00); Lymphocytes # (Auto) 1.9 Thou/mm3 (1.0-4.8); Lymphocytes % (Auto) 34 % (10-50); Mean Corpuscular HGB Conc 31.6 g/dl (31.0-37.0); Mean Corpuscular Hemoglobin 23.8 pg (25.0-35.0); Mean Corpuscular Volume 75 fL (80-100); Monocytes # (Auto) 0.4 Thou/mm3 (0.0-0.8); Monocytes % (Auto) 7 % (0-12); Neutrophils # (Auto) 3.2 Thou/mm3 (1.8-7.7); Neutrophils % (Auto) 58 % (37-80); Nucleated Red Blood Cell % 0 /100 WBC (0); Platelet Count 169 Thou/mm3 (140-440); Red Blood Count 4.04 Miln/mm3 (4.00-5.20); White Blood Count 5.5 Thou/mm3 (3.6-11.0)
[2024-07-18 05:39] LABS: Alanine Aminotransferase 17 U/L (10-49); Albumin, Serum 3.3 gm/dL (3.4-4.8); Albumin/Globulin Ratio 1.2 (1.2-2.2); Alkaline Phosphatase 95 U/L (46-116); Anion Gap 11 (7-16); Aspartate Amino Transferase 29 U/L (0-34); Bilirubin,Total 0.2 mg/dL (0.3-1.2); Blood Urea Nitrogen 35 mg/dL (9-23); Calcium 7.9 mg/dL (8.3-10.6); Calcium (Corrected) 8.5 mg/dL (8.5-10.1); Carbon Dioxide 22.7 mMol/L (20.0-31.0); Chloride 107 mMol/L (98-107); Globulin 2.8 gm/dL (2.3-3.5); Glucose 213 mg/dL (74-106); Osmolality,Calculated 295 (275-295); Potassium 3.4 mMol/L (3.4-5.1); Sodium 141 mMol/L (136-145); Total Protein 6.1 gm/dL (5.7-8.2)
[2024-07-18 05:40] LABS: BUN/Creatinine Ratio 13 Ratio (12-20); Creatinine (Component) 2.7 mg/dL (0.6-1.3); Estimated Creatinine Clearance 24.2 mL/min (>60); eGFR 19 See Note
--- NOTE | 2024-07-18 06:23 | PC.NURSE ---
Dr. Rodriguez notified of urine culture results.
[2024-07-18] MEDS: ALBUTEROL/IPRATROPIUM (Duoneb) RT SOL 3 ML NEBU INH ×2 (07:07→14:39)
[2024-07-18] MEDS: INSULIN LISPRO (AdmeLOG) 1 UNIT/0.01 ML UNIT SC ×3 (07:50→17:13)
--- NOTE | 2024-07-18 08:09 | PD.RESPRO ---
Documentation for date of: 07/18/24 Subjective Subjective Interval history: 62-year-old female with history of CVA with functional quadriplegia, hypertension, hyperlipidemia, depression, anemia of chronic disease, CKD, insulin dependent type 2 diabetes, diverticulosis presenting to the ED from [facility] with change in mental status per staff members along with low blood pressure when checked. History taken mostly from ED physician and reports from [facility] transitional care as the patient is verbal but mostly monitoring her words and seems to be debilitated. Per chart review, patient had CVA episode sometime in 2014 and was trach and PEG, admitted to a subacute facility at which point she improved over several years where she was able to use wheelchair. Per notes, patient does not have any family support and has been at [facility] for several years. When she presented to the ED, ED physician notes that the patient was altered and had some confusion which is out of her normal baseline. Interviewed the patient, she is Palau[place]-speaking, at which point she stated that she is having chest pain and difficulty with initiating breaths; however, she denies having any nausea/vomiting/diarrhea, sick contacts or any other concerning symptoms In the ED, patient presented hypotensive 81/54, heart rate 81, respiratory rate 19, afebrile satting 95 on 6 L nasal cannula. Pertinent lab findings included fingerstick blood glucose 167, WBC 17.9, hemoglobin 11 with MCV of 75, platelet 192, potassium 3.6, BUN 50, creatinine 4.0, EGFR 12, lactic acid 1.4, magnesium 1.6, AST 43, ALT 20, troponin 0.087 and Pro-Nicholas 239. Urinalysis shows 3+ proteinuria, hematuria, positive leukocyte esterase, pyuria and +1 bacteria. EKG shows sinus rhythm, chest x-ray shows left-sided pneumonia and head CT is negative for any acute bleed but there is chronic microvascular changes along with encephalomalacia in the right inferior cerebellum secondary to old infarct Patient admitted for sepsis secondary to pneumonia and urinary tract infection with BETHANY likely secondary to Tamiflu; will be treated with IV antibiotics and IV fluids. 07/16/2024: Patient interviewed and examined at bedside this a.m. No acute overnight events reported. Patient's renal function noted to be markedly elevated with a BUN/CR of 48 and 3.9 respectively. Due to patient presenting with hypotension, DDX of ATN is suspected, will consult Nephrology services for further recommendations. Patient given IV fluid bolus of 500 cc normal saline. Repeat BMP pending. Patient also noted to have a rash above the left eyebrow in the V1 ophthalmic region of cranial nerve V with Concern for zoster opthalmicus. Will defer starting acyclovir at this time due to patient's markedly elevated creatinine and consult ID for further recommendations. 07/17/2024: Patient interviewed and examined at bedside this a.m. No acute overnight events were reported. Patient's BUN and creatinine appear to be improving with IV fluid boluses as creatinine is 3.3 today from 3.6 yesterday. Patient's I/O's are significant for intake of 850 output of 2600 with a net balance of -1750. Will continue to administer fluid boluses to avoid dehydration. 07/18/2023: Patient was interviewed and examined at bedside this a.m. As per the overnight coverage team, the patient went into new onset Atrial fibrillation with rapid ventricular response as evidenced on EKG. Patient's electrolytes were checked and was found to be hypokalemic which was replenished appropriately. Patient was started on metoprolol 50 mg twice daily Exam Vital Signs Temp Pulse Resp BP Pulse Ox O2 Del Method O2 Flow Rate 97.8 F 75 16 122/74 98 Room Air 2 07/18/24 04:00 07/18/24 07:08 07/18/24 07:08 07/18/24 04:22 07/18/24 07:08 07/18/24 04:00 07/17/24 12:00 Narrative Exam General: Not in any visible or apparent acute distress, somnolent, sick appearing, alert but minimally interactive HEENT: NC/AT moist mucous membranes CVS: S1S2 Regular rate and rhythm, No murmurs, rubs or gallops Lungs: Normal respiratory effort, no wheezing rhonchi or rales, CTAB Abd: Soft, no tenderness to palpation Ext: No edema, warm well perfused, decreased strength secondary to functional quadriplegia Skin: Intact, 2x3 cm erythematous flat, non-raised rash above the left eyebrow noted Neuro: AOx2 Baseline Objective Labs 07/18/24 04:43 07/18/24 04:43 Labs: Laboratory Results - last 24 hr 07/18/24 07/18/24 01:51 04:43 WBC 5.5 RBC 4.04 Hgb 9.6 L Hct 30.4 L MCV 75 L MCH 23.8 L MCHC 31.6 RDW Std Deviation 44.0 Plt Count 169 Neut % (Auto) 58 Lymph % (Auto) 34 [place] % (Auto) 7 Eos % (Auto) 0 Baso % (Auto) 0 Neut # (Auto) 3.2 Lymph # (Auto) 1.9 [place] # (Auto) 0.4 Eos # (Auto) 0.0 Baso # (Auto) 0.0 Immature Gran # (Auto) 0.01 H Absolute Nucleated RBC 0.00 Immature Gran % 0 Nucleated RBC % 0 Sodium 141 Potassium 3.2 L 3.4 Chloride 107 Carbon Dioxide 22.7 Anion Gap 11 BUN 35 H Creatinine 2.7 H D Estim Creat Clear Calc 24.2 L eGFR 19 L BUN/Creatinine Ratio 13 Glucose 213 H D Calculated Osmolality 295 Calcium 7.9 L Corrected Calcium 8.5 Magnesium 2.1 Total Bilirubin 0.2 L AST 29 ALT 17 Alkaline Phosphatase 95 Troponin I < 0.020 Total Protein 6.1 Albumin 3.3 L Globulin 2.8 Albumin/Globulin Ratio 1.2 Quality Measures Quality Measures none Assessment & Plan Assessment Current Active Medications: Generic Name Dose Route Start Last Admin Trade Name Freq PRN Reason Stop Dose Admin Acetaminophen 650 mg 07/16/24 02:38 07/18/24 02:53 Acetaminophen 325 Mg Tablet PO 08/15/24 02:37 650 mg Q6H PRN Administration Pain 1-3 and/or Fever >100.1 Albuterol/Ipratropium 3 ml 07/17/24 15:00 07/18/24 07:07 Albuterol/Ipratropium (Duoneb) Rt Gosia 3 Ml Nebu INH 08/16/24 14:59 3 ml Q8HRRT ARLENE Administration Atorvastatin Calcium 80 mg 07/17/24 21:00 07/17/24 21:40 Atorvastatin Calcium 20 Mg Tablet PO 08/16/24 20:59 80 mg HS ARLENE Administration Protocol Azithromycin 250 mg 07/17/24 09:00 07/17/24 08:37 Azithromycin 250 Mg Tablet PO 07/21/24 08:59 250 mg QDAY ARLENE Administration Dextrose 25 ml 07/16/24 02:41 Dextrose 50%-Water Inj 50 Ml Syringe IV 08/15/24 02:40 Q15MIN PRN BG 50-70 responsive npo pt Dextrose 50 ml 07/16/24 02:41 Dextrose 50%-Water Inj 50 Ml Syringe IV 08/15/24 02:40 Q15MIN PRN BG <50 OR BG <70 & pt unresponsive Gabapentin 100 mg 07/17/24 21:00 07/17/24 21:40 Gabapentin 100 Mg Capsule PO 08/16/24 20:59 100 mg HS ARLENE Administration Glucagon 1 mg 07/16/24 02:41 Glucagon Inj 1 Mg Vial IM Q15MIN PRN BG <70, and no IV access Heparin Sodium (Porcine) 5,000 unit 07/16/24 09:00 07/17/24 21:41 Heparin Sod Inj 5000 Unit/Ml Vial SC 07/30/24 08:59 5,000 unit Q12HR ARLENE Administration Ceftriaxone Sodium/Dextrose 50 mls @ 100 mls/hr 07/16/24 21:00 07/17/24 21:41 Rocephin/D5w 1gm Iv Premix IV 07/23/24 02:42 100 mls/hr HS ARLENE Administration Sodium Chloride 1,000 mls @ 125 mls/hr 07/18/24 03:02 07/18/24 04:19 Ns IV 07/18/24 11:01 125 mls/hr .Q8H ARLENE Administration Insulin Human Lispro 0 unit 07/16/24 17:00 07/18/24 07:50 Insulin Lispro (Admelog) 1 Unit/0.01 Ml Unit SC 08/15/24 16:59 2 unit AC ARLENE Administration Protocol Ondansetron HCl 4 mg 07/16/24 02:38 Ondansetron Inj 2 Mg/Ml Inj 2 Ml IV 08/15/24 02:37 Q6H PRN NAUSEA OR VOMITING Protocol Oseltamivir Phosphate 30 mg 07/16/24 10:00 07/17/24 08:45 Oseltamivir 30 Mg Capsule PO 07/23/24 08:59 30 mg QDAY ARLENE Administration Pantoprazole Sodium 40 mg 07/16/24 09:00 07/17/24 08:36 Pantoprazole Inj 40 Mg Vial IVP 08/15/24 08:59 40 mg QDAY ARLENE Administration Sennosides 1 tab 07/16/24 09:00 07/17/24 08:37 Senna Tablet PO 08/15/24 08:59 1 tab QDAY ARLENE Administration Protocol Plan 62-year-old female with history of CVA with functional quadriplegia, hypertension, hyperlipidemia, depression, anemia of chronic disease, CKD, insulin dependent type 2 diabetes, diverticulosis presenting from [facility] care with change in mental status per staff members along with low blood pressure when checked will be admitted for sepsis secondary to pneumonia and urinary tract infection with BETHANY likely secondary to Tamiflu; will be treated with IV antibiotics and IV fluids. #Acute encephalopathy 2/2 #Sepsis secondary to pneumonia #Community-acquired pneumonia, Influenza PNA #Acute respiratory failure #Urinary tract infection #Leukocytosis Patient presenting from [facility] care secondary to change in mental status and low blood pressure Unable to acquire history from patient as the patient is somnolent and only provides one-word answers In the ED, patient presented hypotensive and hypoxemic requiring 6 L nasal cannula Patient appears septic with new acute encephalopathy, WBC 17.9, end-organ dysfunction (acute renal failure), Pro-Nicholas 239 Chest x-ray shows left-sided pneumonia, urinalysis shows signs of urinary tract infection (unable to ascertain if patient has dysuria but she does have hypogastric tenderness) CT of head ordered to rule out intracranial/cerebral hemorrhage; no bleed noted but there is chronic microvascular changes along with encephalomalacia in the right inferior cerebellum secondary to old infarct Patient given 2 L normal saline boluses in the ED for sepsis alert Plan: Continue IV ceftriaxone and azithromycin regimen ordered Blood cultures: Negative at 48 hours Urine cultures: Morganella Morgani - sensitive to ceftriaxone Continue Tamiflu 30mg renally dosed, due to BETHANY #Acute renal failure -improving #Diabetic nephropathy Per chart review, patient has history of CKD likely secondary to diabetic nephropathy Patient presenting now with acute renal failure creatinine of 4.0, BUN 50 and EGFR of 12 Likely secondary to sepsis versus worsening kidney function due to chronic medical condition Patient was given 75 mg of Tamiflu at SNF facility which can precipitate kidney failure Plan: IV maintenance fluids Follow-up with morning labs, expecting creatinine to improve with IV fluids If patient does not improve, consider consulting nephrology Patient does not meet emergent dialysis needs at this time (not volume overloaded, not acidotic, no hyperkalemia, no toxins) Avoid nephrotoxic agents Renally dose medications #Atrial fibrillation with RVR, new onset Patient presented with new onset paroxysmal atrial fibrillation with a pulse rate of 143. Differential diagnoses include pulmonary/PE/postop, infection, ischemia, rheumatic heart disease, anemia, toxins/thyroid/drugs, ethanol/electrolytes/elevated blood pressure, sepsis/sleep apnea/sick sinus syndrome. Patient is currently hemodynamically stable and rate is currently controlled [id number] = 5 points; Stroke risk was indicating 7.2% risk of embolism per year. Work-up: ?EKG as needed for chest pain ? Continue telemetry monitoring ? BMP, Mg ? TSH: WNL ? TTE: PENDING ? Rule out PE/lung disease (consider chest x-ray CTPE) ? Cardiology consulted, appreciate recommendation Plan: ? Rate control: metoprolol 25 mg PO BID ? Anticoagulation: Will defer to Cardiology #Elevated troponin - resolved Patient presenting to the ED with elevated troponin 0.087 Patient denies chest pain,.Likely secondary to sepsis in setting of pneumonia, although patient does have some risk factors of developing ACS/CAD including hypertension, diabetes, CKD and history of CVA in the past Will D/C Trending troponin as it has been observed to be downtrending #Hypertension Patient has history of hypertension on metoprolol tartrate, amlodipine Patient presenting now with sepsis and hypotension Plan: As patient is hypotensive/normotensive, will defer starting antihypertensive's at this time. Will restart home meds if patient becomes hypertensive. #Insulin-dependent type 2 diabetes HOLD home medications: metformin, Januvia and insulin A1c: 7.5% Plan: Sliding scale insulin every 6 hours Bedside blood glucose every 6 hours #Microcytic anemia Per chart review, patient has history of anemia and has been given iron supplementation in the past Differentials include anemia of chronic disease, iron deficiency anemia, thalassemia Plan: Will continue to monitor #History of CVA with residual functional quadriplegia, dysphagia #History of trach and PEG 2015 since reversed Plan: Speech evaluation: Dysphagia 2, mechanically altered Carb consistent diet Hospital Management: Lines: PIV Diet: Dysphagia 2, mechanically altered Carb consistent diet Bowel: Senna as needed GI prophylaxis: Protonix DVT prophylaxis: Heparin subq Dispo: Sepsis secondary to pneumonia/UTI on IV antibiotics and IV fluids for acute renal failure Code: Full Patient's case was discussed with supervising attending physician Dr. Jocelyn Li M.D. Internal Medicine PGY-3 Attending Provider Attestation/Addendum I have discussed and was present for the essential components of the history, physical examination, diagnosis, and treatment plan with the resident. I agree with the patient's care as documented by the resident and amended herein by me. Jason Banks DO. Patient seen and evaluated this AM. No acute events overnight, vital signs stable, patient afebrile, patient on room air 98% on room air. Patient did have an episode of a A-fib with RVR overnight. Hemoglobin stable at 9.6, kidney function continues to improve with a creatinine of 2.7 today. Will continue Tamiflu, appreciate nephrology recommendations, will continue ceftriaxone and azithromycin, echo ordered, cardiology consulted, appreciate recommendations, will continue metoprolol tartrate 25 mg p.o. twice daily for now. Will continue to monitor closely while she is here, likely discharge in 1 to 2 days pending specialist recommendations and continue improvement. Although this document has been carefully reviewed, there may still be some phonetic and other typographical errors. These errors are purely grammatical due to imperfections in the software program and should not be construed in any way to compromise the substance of the patient's medical care during this visit.
[2024-07-18] MEDS: SENNA TABLET 1 TAB PO (08:35)
[2024-07-18] MEDS: AZITHROMYCIN 250 MG TABLET PO (08:37)
[2024-07-18] MEDS: OSELTAMIVIR 30 MG CAPSULE PO (08:37)
[2024-07-18] MEDS: POTASSIUM CHLORIDE 20 mEq TABCR 40 MEQ PO (08:37)
[2024-07-18] MEDS: PANTOPRAZOLE INJ 40 MG VIAL IVP (08:41)
[2024-07-18] MEDS: HEPARIN SOD INJ 5000 UNIT/ML VIAL SC ×2 (08:41→20:51)
--- NOTE | 2024-07-18 14:53 | PC.SS ---
Rounding: Pending ECHO and cardio consult
--- NOTE | 2024-07-18 17:28 | PD.NEPHPROG ---
Documentation for date of: 07/18/24 Subjective Subjective Interval history: Ms. Higgins is a 62-year-old lady with extensive medical history of hypertension, dyslipidemia, stroke, depression, diabetes who is residing at [facility] transitional care was sent to the emergency department with altered mental status. Chart review done as I could not get any information from the patient. Apparently patient had a stroke in 2014 and had a trach and PEG and was sent to rehab. Over the years she is slowly recovered and is able to use a wheelchair however currently patient could not give me any information. Medications: Amlodipine, metformin, Januvia, long-acting insulin, esomeprazole, metoprolol tartrate In the ED, patient presented hypotensive 81/54, heart rate 81, respiratory rate 19, afebrile satting 95 on 6 L nasal cannula. Pertinent lab findings included fingerstick blood glucose 167, WBC 17.9, hemoglobin 11 with MCV of 75, platelet 192, potassium 3.6, BUN 50, creatinine 4.0, EGFR 12, lactic acid 1.4, magnesium 1.6, AST 43, ALT 20, troponin 0.087 and Pro-Nicholas 239. Urinalysis shows 3+ proteinuria, hematuria, positive leukocyte esterase, pyuria and +1 bacteria. EKG shows sinus rhythm, chest x-ray shows left-sided pneumonia and head CT is negative for any acute bleed but there is chronic microvascular changes along with encephalomalacia in the right inferior cerebellum secondary to old infarct Patient was admitted for sepsis secondary to pneumonia and urinary tract infection with BETHANY likely secondary to prerenal state. Patient was given IV fluids and IV antibiotics and renal consultation requested. Her last lab in this hospital was 2016 where creatinine was completely normal. No family around. 07/16/2024 patient currently seen in medical floor. Nonverbal. Labs, medications reviewed.WBC 14.9, hemoglobin 10.9, platelets 174. Sodium 141, potassium 3.2, BUN 46, creatinine 3.6, GFR 14. A1c 7.5, lactic acid 1.4, AST 36, ALT 14. Troponin tad elevated at 0.068. Lipids normal. Pro-Nicholas 239. Lipase 59, TSH 0.58. Urinalysis shows a 3+ protein. Urine protein/creatinine 2.5. Urine sodium 77 chest x-ray showed left base pneumonia. Head CT old infarct. No acute CVA. Doppler ultrasound of the right leg negative for DVT. Kidney ultrasound showed bilateral cortical thinning with no hydronephrosis. 07/18/2023 patient currently seen in medical floor. She is more alert and awake today. Labs reviewed. BUN and creatinine improving. Suspect she has underlying CKD with significant proteinuria. Review of Systems Review of Systems Narrative Review of Systems: Patient denies any chest pain, shortness of breath. Complaining of pain in the legs. Exam Vital Signs Temp Pulse Resp BP Pulse Ox O2 Del Method O2 Flow Rate 36.6 C 82 16 172/85 H 98 Room Air 2 07/18/24 12:00 07/18/24 16:00 07/18/24 14:40 07/18/24 12:00 07/18/24 14:40 07/18/24 12:00 07/17/24 12:00 Narrative Exam GENERAL APPEARANCE: Patient comfortable, alert and awake NECK: Neck supple, no JVD or bruit Old tracheostomy scar CARDIOVASCULAR: Heart regular, no murmurs LUNGS/CHEST: Chest clear to auscultation. No rales, rhonchi, wheezing ABDOMEN: Soft, nontender, nondistended. No masses. Normal bowel sounds. Previous G-tube was removed EXTREMITIES: No edema, clubbing or cyanosis. SKIN: Skin exam normal without any rashes MUSCULOSKELETAL: In bed NEUROLOGICAL : No neurological deficits Objective Labs 07/20/24 05:19 07/20/24 05:19 Labs: Laboratory Results - last 24 hr 07/18/24 07/18/24 01:51 04:43 WBC 5.5 RBC 4.04 Hgb 9.6 L Hct 30.4 L MCV 75 L MCH 23.8 L MCHC 31.6 RDW Std Deviation 44.0 Plt Count 169 Neut % (Auto) 58 Lymph % (Auto) 34 [place] % (Auto) 7 Eos % (Auto) 0 Baso % (Auto) 0 Neut # (Auto) 3.2 Lymph # (Auto) 1.9 [place] # (Auto) 0.4 Eos # (Auto) 0.0 Baso # (Auto) 0.0 Immature Gran # (Auto) 0.01 H Absolute Nucleated RBC 0.00 Immature Gran % 0 Nucleated RBC % 0 Sodium 141 Potassium 3.2 L 3.4 Chloride 107 Carbon Dioxide 22.7 Anion Gap 11 BUN 35 H Creatinine 2.7 H D Estim Creat Clear Calc 24.2 L eGFR 19 L BUN/Creatinine Ratio 13 Glucose 213 H D Calculated Osmolality 295 Calcium 7.9 L Corrected Calcium 8.5 Magnesium 2.1 Total Bilirubin 0.2 L AST 29 ALT 17 Alkaline Phosphatase 95 Troponin I < 0.020 Total Protein 6.1 Albumin 3.3 L Globulin 2.8 Albumin/Globulin Ratio 1.2 Assessment & Plan Additional Assessment & Plan Additional Plan: #Acute renal failure with underlying diabetic nephropathy (nonnephrotic range proteinuria)-secondary to prerenal azotemia. Patient presented with pneumonia, hypotension and hypoxia. Agree with IV fluids, IV antibiotics. Renal ultrasound showed no hydronephrosis. #Acute encephalopathy 2/2 #Sepsis secondary to pneumonia #Community-acquired pneumonia, Influenza PNA #Acute respiratory failure #Urinary tract infection Continue with IV ceftriaxone, azithromycin. #Elevated troponin Probably related to stress response. #Insulin-dependent type 2 diabetes Patient is on metformin, Januvia and insulin at the facility Hold both medications. #Microcytic anemia Possibly related to underlying renal insufficiency. History of thalassemia per chart. #History of CVA #History of functional quadriplegia, dysphagia #History of trach and PEG 2014
[2024-07-18] MEDS: cefTRIAXone/D5w 1gm IV premix 50 ML IV (20:50)
[2024-07-18] MEDS: GABAPENTIN 100 MG CAPSULE PO (20:50)
[2024-07-18] MEDS: ATORVASTATIN CALCIUM 20 MG TABLET 80 MG PO (20:50)
[2024-07-19] VITALS (9 sets, daily range): BP systolic 133–174; BP diastolic 76–89; PULSE 70–84; RESP 13–18; TEMP 36.1–36.8; O2SAT 91–96; BMI 31.0
[2024-07-19 05:59] LABS: Basophils % (Auto) 0 % (0-2.5); Eosinophils # (Auto) 0.1 Thou/mm3 (0.0-0.5); Eosinophils % (Auto) 2 % (0-10); Hemoglobin 10.2 g/dL (12.0-16.0); Immature Granulocytes % (Auto) 1 % (0-0); Immature Granulocytes Auto 0.06 Thou/mm3 (0.00-0.00); Lymphocytes # (Auto) 2.2 Thou/mm3 (1.0-4.8); Lymphocytes % (Auto) 46 % (10-50); Mean Corpuscular HGB Conc 31.9 g/dl (31.0-37.0); Mean Corpuscular Volume 75 fL (80-100); Monocytes # (Auto) 0.4 Thou/mm3 (0.0-0.8); Monocytes % (Auto) 9 % (0-12); Neutrophils # (Auto) 2.1 Thou/mm3 (1.8-7.7); Neutrophils % (Auto) 43 % (37-80); Nucleated Red Blood Cell % 0 /100 WBC (0); Platelet Count 180 Thou/mm3 (140-440); RDW Standard Deviation 44.2 fL (36.4-46.3); Red Blood Count 4.25 Miln/mm3 (4.00-5.20); White Blood Count 4.9 Thou/mm3 (3.6-11.0)
[2024-07-19 06:55] LABS: Alanine Aminotransferase 49 U/L (10-49); Albumin, Serum 3.4 gm/dL (3.4-4.8); Albumin/Globulin Ratio 1.2 (1.2-2.2); Alkaline Phosphatase 112 U/L (46-116); Anion Gap 9 (7-16); Aspartate Amino Transferase 103 U/L (0-34); BUN/Creatinine Ratio 16 Ratio (12-20); Bilirubin,Total 0.3 mg/dL (0.3-1.2); Blood Urea Nitrogen 37 mg/dL (9-23); Calcium 9.7 mg/dL (8.3-10.6); Calcium (Corrected) 10.2 mg/dL (8.5-10.1); Carbon Dioxide 25.3 mMol/L (20.0-31.0); Chloride 109 mMol/L (98-107); Creatinine (Component) 2.3 mg/dL (0.6-1.3); Estimated Creatinine Clearance 28.3 mL/min (>60); Globulin 2.8 gm/dL (2.3-3.5); Glucose 242 mg/dL (74-106); Osmolality,Calculated 301 (275-295); Potassium 3.9 mMol/L (3.4-5.1); Sodium 143 mMol/L (136-145); Total Protein 6.2 gm/dL (5.7-8.2); eGFR 23 See Note
--- NOTE | 2024-07-19 07:23 | ESPR_ITS ---
Documentation for date of: 07/19/24 Subjective Subjective Interval history: 62-year-old female with history of CVA with functional quadriplegia, hypertension, hyperlipidemia, depression, anemia of chronic disease, CKD, insulin dependent type 2 diabetes, diverticulosis presenting to the ED from [facility] with change in mental status per staff members along with low blood pressure when checked. History taken mostly from ED physician and reports from [facility] transitional care as the patient is verbal but mostly monitoring her words and seems to be debilitated. Per chart review, patient had CVA episode sometime in 2014 and was trach and PEG, admitted to a subacute facility at which point she improved over several years where she was able to use wheelchair. Per notes, patient does not have any family support and has been at [facility] for several years. When she presented to the ED, ED physician notes that the patient was altered and had some confusion which is out of her normal baseline. Interviewed the patient, she is Lebanese- speaking, at which point she stated that she is having chest pain and difficulty with initiating breaths; however, she denies having any nausea/vomiting/diarrhea, sick contacts or any other concerning symptoms In the ED, patient presented hypotensive 81/54, heart rate 81, respiratory rate 19, afebrile satting 95 on 6 L nasal cannula. Pertinent lab findings included fingerstick blood glucose 167, WBC 17.9, hemoglobin 11 with MCV of 75, platelet 192, potassium 3.6, BUN 50, creatinine 4.0, EGFR 12, lactic acid 1.4, magnesium 1.6, AST 43, ALT 20, troponin 0.087 and Pro-Nicholas 239. Urinalysis shows 3+ proteinuria, hematuria, positive leukocyte esterase, pyuria and +1 bacteria. EKG shows sinus rhythm, chest x-ray shows left-sided pneumonia and head CT is negative for any acute bleed but there is chronic microvascular changes along with encephalomalacia in the right inferior cerebellum secondary to old infarct Patient admitted for sepsis secondary to pneumonia and urinary tract infection with BETHANY likely secondary to Tamiflu; will be treated with IV antibiotics and IV fluids. 07/16/2024: Patient interviewed and examined at bedside this a.m. No acute overnight events reported. Patient's renal function noted to be markedly elevated with a BUN/CR of 48 and 3.9 respectively. Due to patient presenting with hypotension, DDX of ATN is suspected, will consult Nephrology services for further recommendations. Patient given IV fluid bolus of 500 cc normal saline. Repeat BMP pending. Patient also noted to have a rash above the left eyebrow in the V1 ophthalmic region of cranial nerve V with Concern for zoster opthalmicus. Will defer starting acyclovir at this time due to patient's markedly elevated creatinine and consult ID for further recommendations. 07/17/2024: Patient interviewed and examined at bedside this a.m. No acute overnight events were reported. Patient's BUN and creatinine appear to be improving with IV fluid boluses as creatinine is 3.3 today from 3.6 yesterday. Patient's I/O's are significant for intake of 850 output of 2600 with a net balance of -1750. Will continue to administer fluid boluses to avoid dehydration. 07/18/2024: Patient was interviewed and examined at bedside this a.m. As per the overnight coverage team, the patient went into new onset Atrial fibrillation with rapid ventricular response as evidenced on EKG. Patient's electrolytes were checked and was found to be hypokalemic which was replenished appropriately. Patient was started on metoprolol 50 mg twice daily 07/19/2024: Patient interviewed and examined at bedside this a.m. No overnight events reported. Patient's BETHANY resolving with BUN/CR of 37 and 2.3 respectively. Electrolytes within normal limits. Patient was evaluated by Cardiology services for new onset AFIB with RVR. New onset A-fib was thought to be from electrolyte disturbance which has since resolved and as patient is currently in NSR recommended continue current management and consider amiodarone if patient enters A-fib again. We will continue with antibiotics and oseltamavir for 1 more day to finish full course. Patient's blood glucose was elevated at 300. Changed sliding scale insulin to normal sensitive scale and restarted home regimen of insulin. Anticipate discharge in 24 hours. Exam Vital Signs Temp Pulse Resp BP Pulse Ox O2 Del Method O2 Flow Rate 97.1 F 75 16 159/82 H 96 Room Air 2 07/19/24 04:00 07/19/24 04:00 07/19/24 04:00 07/19/24 04:00 07/19/24 04:00 07/19/24 04:00 07/17/24 12:00 Narrative Exam General: Not in any visible or apparent acute distress, somnolent, well appearing, alert & interactive HEENT: NC/AT moist mucous membranes CVS: S1S2 Regular rate and rhythm, No murmurs, rubs or gallops Lungs: Normal respiratory effort, no wheezing rhonchi or rales, CTAB Abd: Soft, no tenderness to palpation Ext: No edema, warm well perfused, decreased strength secondary to functional quadriplegia Skin: Intact, 2x3 cm erythematous flat, non-raised rash above the left eyebrow noted Neuro: AOx2 Baseline Objective Labs 07/19/24 04:31 07/19/24 04:31 Labs: Laboratory Results - last 24 hr 07/19/24 04:31 WBC 4.9 RBC 4.25 Hgb 10.2 L Hct 32.0 L MCV 75 L MCH 24.0 L MCHC 31.9 RDW Std Deviation 44.2 Plt Count 180 Neut % (Auto) 43 Lymph % (Auto) 46 [place] % (Auto) 9 Eos % (Auto) 2 Baso % (Auto) 0 Neut # (Auto) 2.1 Lymph # (Auto) 2.2 [place] # (Auto) 0.4 Eos # (Auto) 0.1 Baso # (Auto) 0.0 Immature Gran # (Auto) 0.06 H Absolute Nucleated RBC 0.00 Immature Gran % 1 H Nucleated RBC % 0 Sodium 143 Potassium 3.9 D Chloride 109 H Carbon Dioxide 25.3 Anion Gap 9 BUN 37 H Creatinine 2.3 H Estim Creat Clear Calc 28.3 L eGFR 23 L BUN/Creatinine Ratio 16 Glucose 242 H Calculated Osmolality 301 H Calcium 9.7 D Corrected Calcium 10.2 H D Total Bilirubin 0.3 AST 103 H ALT 49 Alkaline Phosphatase 112 Total Protein 6.2 Albumin 3.4 Globulin 2.8 Albumin/Globulin Ratio 1.2 Quality Measures Quality Measures none Assessment & Plan Assessment Current Active Medications: Generic Name Dose Route Start Last Admin Trade Name Freq PRN Reason Stop Dose Admin Acetaminophen 650 mg 07/16/24 02:38 07/18/24 21:47 Acetaminophen 325 Mg Tablet PO 08/15/24 02:37 650 mg Q6H PRN Administration Pain 1-3 and/or Fever >100.1 Albuterol/Ipratropium 3 ml 07/17/24 15:00 07/18/24 14:39 Albuterol/Ipratropium (Duoneb) Rt Gosia 3 Ml Nebu INH 08/16/24 14:59 3 ml Q8HRRT ARLENE Administration Atorvastatin Calcium 80 mg 07/17/24 21:00 07/18/24 20:50 Atorvastatin Calcium 20 Mg Tablet PO 08/16/24 20:59 80 mg HS ARLENE Administration Protocol Azithromycin 250 mg 07/17/24 09:00 07/18/24 08:37 Azithromycin 250 Mg Tablet PO 07/21/24 08:59 250 mg QDAY ARLENE Administration Dextrose 25 ml 07/16/24 02:41 Dextrose 50%-Water Inj 50 Ml Syringe IV 08/15/24 02:40 Q15MIN PRN BG 50-70 responsive npo pt Dextrose 50 ml 07/16/24 02:41 Dextrose 50%-Water Inj 50 Ml Syringe IV 08/15/24 02:40 Q15MIN PRN BG <50 OR BG <70 & pt unresponsive Gabapentin 100 mg 07/17/24 21:00 07/18/24 20:50 Gabapentin 100 Mg Capsule PO 08/16/24 20:59 100 mg HS ARLENE Administration Glucagon 1 mg 07/16/24 02:41 Glucagon Inj 1 Mg Vial IM Q15MIN PRN BG <70, and no IV access Heparin Sodium (Porcine) 5,000 unit 07/16/24 09:00 07/18/24 20:51 Heparin Sod Inj 5000 Unit/Ml Vial SC 07/30/24 08:59 5,000 unit Q12HR ARLENE Administration Ceftriaxone Sodium/Dextrose 50 mls @ 100 mls/hr 07/16/24 21:00 07/18/24 20:50 Rocephin/D5w 1gm Iv Premix IV 07/23/24 02:42 100 mls/hr HS ARLENE Administration Insulin Human Lispro 0 unit 07/16/24 17:00 07/18/24 17:13 Insulin Lispro (Admelog) 1 Unit/0.01 Ml Unit SC 08/15/24 16:59 3 unit AC ARLENE Administration Protocol Ondansetron HCl 4 mg 07/16/24 02:38 Ondansetron Inj 2 Mg/Ml Inj 2 Ml IV 08/15/24 02:37 Q6H PRN NAUSEA OR VOMITING Protocol Oseltamivir Phosphate 30 mg 07/16/24 10:00 07/18/24 08:37 Oseltamivir 30 Mg Capsule PO 07/23/24 08:59 30 mg QDAY ARLENE Administration Pantoprazole Sodium 40 mg 07/16/24 09:00 07/18/24 08:41 Pantoprazole Inj 40 Mg Vial IVP 08/15/24 08:59 40 mg QDAY ARLENE Administration Sennosides 1 tab 07/16/24 09:00 07/18/24 08:35 Senna Tablet PO 08/15/24 08:59 1 tab QDAY ARLENE Administration Protocol Plan 62-year-old female with history of CVA with functional quadriplegia, hypertension, hyperlipidemia, depression, anemia of chronic disease, CKD, insulin dependent type 2 diabetes, diverticulosis presenting from [facility] transitional care with change in mental status per staff members along with low blood pressure when checked will be admitted for sepsis secondary to pneumonia and urinary tract infection with BETHANY likely secondary to Tamiflu; will be treated with IV antibiotics and IV fluids. #Acute encephalopathy 2/2 - resolved #Sepsis secondary to pneumonia - resolved #Community-acquired pneumonia, Influenza PNA #Acute respiratory failure - resolved #Urinary tract infection #Leukocytosis - resolved Patient presenting from [facility] transitional care secondary to change in mental status and low blood pressure Unable to acquire history from patient as the patient is somnolent and only provides one-word answers In the ED, patient presented hypotensive and hypoxemic requiring 6 L nasal cannula Patient appears septic with new acute encephalopathy, WBC 17.9, end-organ dysfunction (acute renal failure), Pro-[place] 239 Chest x-ray shows left-sided pneumonia, urinalysis shows signs of urinary tract infection (unable to ascertain if patient has dysuria but she does have hypogastric tenderness) CT of head ordered to rule out intracranial/cerebral hemorrhage; no bleed noted but there is chronic microvascular changes along with encephalomalacia in the right inferior cerebellum secondary to old infarct Patient given 2 L normal saline boluses in the ED for sepsis alert Plan: Continue IV ceftriaxone and azithromycin regimen ordered Blood cultures: Negative at 48 hours Urine cultures: Morganella Morgani - sensitive to ceftriaxone Continue Tamiflu 30mg renally dosed, due to BETHANY #Acute renal failure -improving #Diabetic nephropathy Per chart review, patient has history of CKD likely secondary to diabetic nephropathy Patient presenting now with acute renal failure creatinine of 4.0, BUN 50 and EGFR of 12 Likely secondary to sepsis versus worsening kidney function due to chronic medical condition Patient was given 75 mg of Tamiflu at SNF facility which can precipitate kidney failure Plan: IV maintenance fluids Follow-up with morning labs, expecting creatinine to improve with IV fluids If patient does not improve, consider consulting nephrology Patient does not meet emergent dialysis needs at this time (not volume overloaded, not acidotic, no hyperkalemia, no toxins) Avoid nephrotoxic agents Renally dose medications #Atrial fibrillation with RVR, new onset - resolved Patient presented with new onset paroxysmal atrial fibrillation with a pulse rate of 143. Patient was evaluated by cardiology services who attributed atrial fibrillation with RVR to electrolyte disturbance. Electrolyte disturbance has since been corrected with resolution of atrial fibrillation. Cardiology service recommended to consider amiodarone if patient reenters A-fib with RVR. #Elevated troponin - resolved Patient presenting to the ED with elevated troponin 0.087 Patient denies chest pain,.Likely secondary to sepsis in setting of pneumonia, although patient does have some risk factors of developing ACS/CAD including hypertension, diabetes, CKD and history of CVA in the past Will D/C Trending troponin as it has been observed to be downtrending #Hypertension Plan: Amlodipine 10 mg p.o. daily #Insulin-dependent type 2 diabetes HOLD home medications: metformin, Januvia and insulin A1c: 7.5% Plan: Sliding scale insulin every 6 hours Bedside blood glucose every 6 hours Restart home regimen of long-acting insulin 25 units nightly glargine #Microcytic anemia Per chart review, patient has history of anemia and has been given iron supplementation in the past Differentials include anemia of chronic disease, iron deficiency anemia, thalassemia Plan: Will continue to monitor #History of CVA with residual functional quadriplegia, dysphagia #History of trach and PEG 2014 since reversed Plan: Speech evaluation: Dysphagia 2, mechanically altered Carb consistent diet Hospital Management: Lines: PIV Diet: Dysphagia 2, mechanically altered Carb consistent diet Bowel: Senna as needed GI prophylaxis: Protonix DVT prophylaxis: Heparin subq Dispo: Sepsis secondary to pneumonia/UTI on IV antibiotics and IV fluids for acute renal failure. Code: Full LPatient's case was discussed with supervising attending physician Dr. Jocelyn Li M.D. Internal Medicine PGY-3 Attending Provider Attestation/Addendum I have discussed and was present for the essential components of the history, physical examination, diagnosis, and treatment plan with the resident. I agree with the patient's care as documented by the resident and amended herein by me. Jason Banks DO. Patient seen and evaluated in the AM. No acute events overnight, vital signs stable, patient afebrile. Renal function continues to improve with a creatinine of 2.3 today, cleared for discharge per nephrology recommendations. Will continue antibiotics and Tamiflu through 07/20. Atrial fibrillation likely secondary to underlying influenza/pneumonia, if patient has recurrent episode of A-fib/RVR, will start patient on amiodarone per cardiology recommendations. Blood glucose was elevated this morning to nearly 300, patient is on high doses of Lantus at home, since she is eating more now, blood sugar likely on the rise hence we will start home Lantus regimen with added bolus dosing for now. Likely discharge once her blood glucose is under control either later's afternoon or tomorrow. Although this document has been carefully reviewed, there may still be some phonetic and other typographical errors. These errors are purely grammatical due to imperfections in the software program and should not be construed in any way to compromise the substance of the patient's medical care during this visit.
--- NOTE | 2024-07-19 07:44 | PD.IMCONS ---
HPI Data of Consult Requesting Physician: Abel Gupta MD Primary Care Provider: Physician No Primary/Family Consult Narrative History of present illness: This is a 62-year-old female with history of CVA with functional quadriplegia, hypertension, hyperlipidemia, depression, anemia of chronic disease, CKD, insulin dependent type 2 diabetes, diverticulosis pt was admitted with altered mental status subsequently developed rapid afib and cardiology conulted currently pt back in SR HR 70-80 electrolytes improving ; afib most likely due to electrolyte abnormalities cc:: cc: Abel Gupta MD Meds Home Medications and Allergies Home Medications ?Medication ?Instructions ?Recorded ?Confirmed ?Type amlodipine 5 mg tablet 5 mg PO DAILY 07/16/24 07/16/24 History azithromycin 250 mg tablet 250 mg PO DAILY 07/16/24 07/16/24 History gabapentin 100 mg capsule 100 mg PO HS 07/16/24 07/16/24 History glucagon HCl 1 mg solution for 1 mg subcut Q20M PRN hypo 07/16/24 07/16/24 History injection (Glucagon (HCl) Emergency Kit) insulin glargine-yfgn 100 unit/mL 7 unit subcut AC 07/16/24 07/16/24 History (3 mL) subcutaneous pen insulin glargine-yfgn 100 unit/mL 25 unit subcut HS 07/16/24 07/16/24 History (3 mL) subcutaneous pen metformin 500 mg tablet 500 mg PO BID 07/16/24 07/16/24 History oseltamivir 75 mg capsule 75 mg PO BID 07/16/24 07/16/24 History rosuvastatin 20 mg tablet 20 mg PO HS 07/16/24 07/16/24 History sitagliptin phosphate 100 mg 100 mg PO DAILY 07/16/24 07/16/24 History tablet (Januvia) Allergies Allergy/AdvReac Type Severity Reaction Status Date / Time No Known Allergies Allergy Verified 08/17/17 21:19 Exam Vital Signs Temp Pulse Resp BP Pulse Ox O2 Del Method O2 Flow Rate 97.1 F 75 16 159/82 H 96 Room Air 2 07/19/24 04:00 07/19/24 04:00 07/19/24 04:00 07/19/24 04:00 07/19/24 04:00 07/19/24 04:00 07/17/24 12:00 Routine HEENT Exam Head: Present normocephalic and atraumatic Eye: Present EOMI and PERRL ENT: Present mucous membranes moist Routine Neck Exam Neck: Present supple and trachea midline Routine Respiratory Exam Respiratory: Present chest non-tender, lungs clear, normal breath sounds and no resp distress Routine Cardiovascular Exam Cardiovascular: Present RRR Routine Abdominal Exam Abdominal: Present soft and normoactive bowel sounds Routine Extremities Exam Extremities: Present full ROM Routine Skin Exam Skin: Present intact, dry and warm Results Labs 07/19/24 04:31 07/19/24 04:31 Labs: Short CBC 07/19/24 Range/Units 04:31 WBC 4.9 (3.6-11.0) Thou/mm3 Hgb 10.2 L (12.0-16.0) g/dL Hct 32.0 L (36.0-46.0) % Plt Count 180 (140-440) Thou/mm3 BMP 07/19/24 04:31 Sodium 143 Potassium 3.9 D Chloride 109 H Carbon Dioxide 25.3 BUN 37 H Creatinine 2.3 H Glucose 242 H Calcium 9.7 D Liver Function 07/19/24 Range/Units 04:31 Total Bilirubin 0.3 (0.3-1.2) mg/dL AST 103 H (0-34) U/L ALT 49 (10-49) U/L Alkaline Phosphatase 112 (46-116) U/L Albumin 3.4 (3.4-4.8) gm/dL Assessment and Plan Assessment and plan (1) UTI (urinary tract infection): Status: Acute (2) Acute renal failure: Status: Acute (3) Sepsis: Status: Acute (4) Atrial fibrillation: Status: Acute Additional Assessment & Plan Additional Plan: pt back in SR continue current meds afib mostlikely due to sepsis/ electrolyte abnormalities if recurs consider amiodarone
[2024-07-19] MEDS: INSULIN LISPRO (AdmeLOG) 1 UNIT/0.01 ML UNIT SC ×3 (08:06→17:15)
[2024-07-19] MEDS: HEPARIN SOD INJ 5000 UNIT/ML VIAL SC ×2 (08:07→20:24)
[2024-07-19] MEDS: PANTOPRAZOLE INJ 40 MG VIAL IVP (08:07)
[2024-07-19] MEDS: AZITHROMYCIN 250 MG TABLET PO (08:07)
[2024-07-19] MEDS: SENNA TABLET 1 TAB PO (08:07)
[2024-07-19] MEDS: OSELTAMIVIR 30 MG CAPSULE PO (08:09)
[2024-07-19] MEDS: amLODIPine BESYLATE 5 MG TABLET 10 MG PO (09:32)
[2024-07-19] MEDS: INSULIN HUM REGULAR 1 UNIT/0.01 ML (PER UNIT) 5 UNIT SC (11:10)
--- NOTE | 2024-07-19 15:15 | PC.SS ---
rounding note: D/c Tuesday as physician team is monitoring patient glucose levels
--- NOTE | 2024-07-19 17:13 | PD.RESDS ---
Planned Discharge Date 07/19/24 DS: Providers Provider Date of admission: 07/16/24 02:38 Primary care physician: Physician No Primary/Family Admitting Provider: Abel Gupta MD Attending Provider on Admission: Gonzalez Banks DO Consults: 07/16/24 02:41 Referral Speech Therapy Routine Comment: Hx of dysphagia 2/2 to hx of CVA 07/16/24 06:37 Referral Registered Dietitian Routine Comment: Health Equity Referral - Knowledge Deficit Routine Comment: Positive screening for knowledge deficit needs. 07/16/24 06:42 Referral Wound Care Routine Comment: 07/16/24 09:57 Consult to Nephrology Urgent Comment: renal failure Consulting Provider: Carlie Payne 07/18/24 10:08 Consult to Cardiology Routine Comment: New onset Afib RVR Consulting Provider: Razia Rosario Attending Provider on DC: Benny Flores MD Discharging Provider: Benny Flores MD Hospital Course Hospital Course Hospital course: 62-year-old female with history of CVA with functional quadriplegia, hypertension, hyperlipidemia, depression, anemia of chronic disease, CKD, insulin dependent type 2 diabetes, diverticulosis presenting to the ED from [facility] with change in mental status per staff members along with low blood pressure when checked. History taken mostly from ED physician and reports from [facility] transitional care as the patient is verbal but mostly monitoring her words and seems to be debilitated. Per chart review, patient had CVA episode sometime in 2014 and was trach and PEG, admitted to a subacute facility at which point she improved over several years where she was able to use wheelchair. Per notes, patient does not have any family support and has been at [facility] for several years. When she presented to the ED, ED physician notes that the patient was altered and had some confusion which is out of her normal baseline. Interviewed the patient, she is [place]-speaking, at which point she stated that she is having chest pain and difficulty with initiating breaths; however, she denies having any nausea/vomiting/diarrhea, sick contacts or any other concerning symptoms In the ED, patient presented hypotensive 81/54, heart rate 81, respiratory rate 19, afebrile satting 95 on 6 L nasal cannula. Pertinent lab findings included fingerstick blood glucose 167, WBC 17.9, hemoglobin 11 with MCV of 75, platelet 192, potassium 3.6, BUN 50, creatinine 4.0, EGFR 12, lactic acid 1.4, magnesium 1.6, AST 43, ALT 20, troponin 0.087 and Pro-Nicholas 239. Urinalysis shows 3+ proteinuria, hematuria, positive leukocyte esterase, pyuria and +1 bacteria. EKG shows sinus rhythm, chest x-ray shows left-sided pneumonia and head CT is negative for any acute bleed but there is chronic microvascular changes along with encephalomalacia in the right inferior cerebellum secondary to old infarct Patient admitted for sepsis secondary to pneumonia and urinary tract infection with BETHANY likely secondary to Tamiflu; will be treated with IV antibiotics and IV fluids. 07/16/2024: Patient interviewed and examined at bedside this a.m. No acute overnight events reported. Patient's renal function noted to be markedly elevated with a BUN/CR of 48 and 3.9 respectively. Due to patient presenting with hypotension, DDX of ATN is suspected, will consult Nephrology services for further recommendations. Patient given IV fluid bolus of 500 cc normal saline. Repeat BMP pending. Patient also noted to have a rash above the left eyebrow in the V1 ophthalmic region of cranial nerve V with Concern for zoster opthalmicus. Will defer starting acyclovir at this time due to patient's markedly elevated creatinine and consult ID for further recommendations. 07/17/2024: Patient interviewed and examined at bedside this a.m. No acute overnight events were reported. Patient's BUN and creatinine appear to be improving with IV fluid boluses as creatinine is 3.3 today from 3.6 yesterday. Patient's I/O's are significant for intake of 850 output of 2600 with a net balance of -1750. Will continue to administer fluid boluses to avoid dehydration. 07/18/2024: Patient was interviewed and examined at bedside this a.m. As per the overnight coverage team, the patient went into new onset Atrial fibrillation with rapid ventricular response as evidenced on EKG. Patient's electrolytes were checked and was found to be hypokalemic which was replenished appropriately. Patient was started on metoprolol 50 mg twice daily 07/19/2024: Patient interviewed and examined at bedside this a.m. No overnight events reported. Patient's BETHANY resolving with BUN/CR of 37 and 2.3 respectively. Electrolytes within normal limits. Patient was evaluated by Cardiology services for new onset AFIB with RVR. New onset A-fib was thought to be from electrolyte disturbance which has since resolved and as patient is currently in NSR recommended continue current management and consider amiodarone if patient enters A-fib again. We will continue with antibiotics and oseltamavir for 1 more day to finish full course. Patient's blood glucose was elevated at 300. Changed sliding scale insulin to normal sensitive scale and restarted home regimen of insulin. Anticipate discharge in 24 hours. Time Spent with Patient Time attestation: Total time spent providing and/or coordinating discharge services: Home Health Home Health Referral Orders: 07/19/24 16:50 Home Health Referral Routine Reason For Exam: debility Home-Bound The patient must either because of illness or injury, need the aid of supportive devices such as crutches, canes, wheelchairs, and walkers; the use of special transportation; or the assistance of another person in order to leave their place of residence; OR have a condition such that leaving his or her home is medically contraindicated. In addition, the patient also meets the following criteria: patient is normally unable to leave the home and leaving home requires considerable taxing effort. Addendum to Home Health Certification Practitioner's Certification: I certify that the patient has been under my care in the hospital and the care of attending physician (see below). We had a [id number] encounter on (see date below). My clinical findings indicate that the patient is home bound per the above criteria and the Home Health Services noted in these orders are medically necessary. The primary reason for the [id number] encounter is related to the fact that the patient requires home health services. Date Certifying [id number] Physician Encounter: 07/15/24 Physician's Name who will Assume Oversight for HH Services: Physician No Primary/Family MOBILITY SPECIALIST - Community Resources: No PT to Evaluate: Yes PT to evaluate and provide a treatmnet plan to increase patient's mobility and strength. Wound Care: No IV Therapy: No Discontinue PICC Line Once Treatment Complete: No RN Safety Evaluation: Yes RN to evaluate and create a plan of care that will produce positive outcomes. Palliative Treatment: No Palliative treatment and evaluate the need for hospice. Home Health Aide - Personal Care: No Home Health Aide to assist with any ADL's. Exam Vital Signs Temp Pulse Resp BP Pulse Ox O2 Del Method O2 Flow Rate 96.9 F 78 17 154/78 H 91 L Room Air 2 07/19/24 12:00 07/19/24 16:58 07/19/24 12:00 07/19/24 12:00 07/19/24 12:00 07/19/24 12:00 07/17/24 12:00 Discharge Plan Plan Patient Disposition: Xfer Skilled Nsg Fac (SNF) Patient condition on transfer: Stable Prescriptions/Referrals Prescriptions/Med Rec: New azithromycin 250 mg Tablet 250 mg PO QDAY 1 Days Qty: 1 0RF amlodipine 5 mg Tablet 10 mg PO DAILY Qty: 30 0RF oseltamivir 30 mg Capsule 30 mg PO QDAY 1 Days Qty: 1 0RF Continued glucagon HCl [Glucagon (HCl) Emergency Kit] 1 mg Recon Soln 1 mg SUBCUT Q20M PRN (Reason: hypo) Rx Instructions: until target blood sugar attained metformin 500 mg tablet 500 mg PO BID gabapentin 100 mg capsule 100 mg PO HS rosuvastatin 20 mg tablet 20 mg PO HS Januvia 100 mg tablet 100 mg PO DAILY insulin glargine-yfgn 100 unit/mL (3 mL) insulin pen 25 unit SUBCUT HS insulin glargine-yfgn 100 unit/mL (3 mL) insulin pen 7 unit SUBCUT AC Discontinued oseltamivir 75 mg capsule 75 mg PO BID amlodipine 5 mg tablet 5 mg PO DAILY No Action azithromycin 250 mg tablet 250 mg PO DAILY Patient Comments: to start on day @ 250 mg for 5 days. Referrals: No Primary/Family,Physician [Primary Care Provider] - Patient/Caregiver Discharge Instructions Print Language: [place] Stand Alone Forms: [employer] Info., Patient Portal Info Letter
--- NOTE | 2024-07-19 19:56 | PD.NEPHPROG ---
Documentation for date of: 07/19/24 Subjective Subjective Interval history: Ms. Higgins is a 62-year-old lady with extensive medical history of hypertension, dyslipidemia, stroke, depression, diabetes who is residing at [facility] transitional care was sent to the emergency department with altered mental status. Chart review done as I could not get any information from the patient. Apparently patient had a stroke in 2014 and had a trach and PEG and was sent to rehab. Over the years she is slowly recovered and is able to use a wheelchair however currently patient could not give me any information. Medications: Amlodipine, metformin, Januvia, long-acting insulin, esomeprazole, metoprolol tartrate In the ED, patient presented hypotensive 81/54, heart rate 81, respiratory rate 19, afebrile satting 95 on 6 L nasal cannula. Pertinent lab findings included fingerstick blood glucose 167, WBC 17.9, hemoglobin 11 with MCV of 75, platelet 192, potassium 3.6, BUN 50, creatinine 4.0, EGFR 12, lactic acid 1.4, magnesium 1.6, AST 43, ALT 20, troponin 0.087 and Pro-Nicholas 239. Urinalysis shows 3+ proteinuria, hematuria, positive leukocyte esterase, pyuria and +1 bacteria. EKG shows sinus rhythm, chest x-ray shows left-sided pneumonia and head CT is negative for any acute bleed but there is chronic microvascular changes along with encephalomalacia in the right inferior cerebellum secondary to old infarct Patient was admitted for sepsis secondary to pneumonia and urinary tract infection with BETHANY likely secondary to prerenal state. Patient was given IV fluids and IV antibiotics and renal consultation requested. Her last lab in this hospital was 2016 where creatinine was completely normal. No family around. 07/16/2024 patient currently seen in medical floor. Nonverbal. Labs, medications reviewed.WBC 14.9, hemoglobin 10.9, platelets 174. Sodium 141, potassium 3.2, BUN 46, creatinine 3.6, GFR 14. A1c 7.5, lactic acid 1.4, AST 36, ALT 14. Troponin tad elevated at 0.068. Lipids normal. Pro-Nicholas 239. Lipase 59, TSH 0.58. Urinalysis shows a 3+ protein. Urine protein/creatinine 2.5. Urine sodium 77 chest x-ray showed left base pneumonia. Head CT old infarct. No acute CVA. Doppler ultrasound of the right leg negative for DVT. Kidney ultrasound showed bilateral cortical thinning with no hydronephrosis. 07/19/2023 patient currently seen in medical floor. She is more alert and awake today.On azithromycin, ceftriaxone. On low-dose Tamiflu. WBC 4.9, hemoglobin 10.2, platelets 180. Sodium 143, potassium 3.9, BUN 37, creatinine 2.3, calcium 10.2, AST 103, ALT 49, alk phos 112, albumin 3.4 urine culture positive for Morganella blood cultures negative Suspect she has underlying CKD with significant proteinuria. Review of Systems Review of Systems Narrative Review of Systems: Patient denies any chest pain, shortness of breath. Complaining of pain in the legs. Exam Vital Signs Temp Pulse Resp BP Pulse Ox O2 Del Method O2 Flow Rate 36.3 C 78 17 143/87 H 91 L Room Air 2 07/19/24 16:00 07/19/24 16:58 07/19/24 16:00 07/19/24 16:00 07/19/24 16:00 07/19/24 16:00 07/17/24 12:00 Narrative Exam GENERAL APPEARANCE: Patient comfortable, alert and awake NECK: Neck supple, no JVD or bruit Old tracheostomy scar CARDIOVASCULAR: Heart regular, no murmurs LUNGS/CHEST: Chest clear to auscultation. No rales, rhonchi, wheezing ABDOMEN: Soft, nontender, nondistended. No masses. Normal bowel sounds. Previous G-tube was removed EXTREMITIES: No edema, clubbing or cyanosis. SKIN: Skin exam normal without any rashes MUSCULOSKELETAL: In bed NEUROLOGICAL : No neurological deficits Objective Labs 07/20/24 05:19 07/20/24 05:19 Labs: Laboratory Results - last 24 hr 07/19/24 04:31 WBC 4.9 RBC 4.25 Hgb 10.2 L Hct 32.0 L MCV 75 L MCH 24.0 L MCHC 31.9 RDW Std Deviation 44.2 Plt Count 180 Neut % (Auto) 43 Lymph % (Auto) 46 [place] % (Auto) 9 Eos % (Auto) 2 Baso % (Auto) 0 Neut # (Auto) 2.1 Lymph # (Auto) 2.2 [place] # (Auto) 0.4 Eos # (Auto) 0.1 Baso # (Auto) 0.0 Immature Gran # (Auto) 0.06 H Absolute Nucleated RBC 0.00 Immature Gran % 1 H Nucleated RBC % 0 Sodium 143 Potassium 3.9 D Chloride 109 H Carbon Dioxide 25.3 Anion Gap 9 BUN 37 H Creatinine 2.3 H Estim Creat Clear Calc 28.3 L eGFR 23 L BUN/Creatinine Ratio 16 Glucose 242 H Calculated Osmolality 301 H Calcium 9.7 D Corrected Calcium 10.2 H D Total Bilirubin 0.3 AST 103 H ALT 49 Alkaline Phosphatase 112 Total Protein 6.2 Albumin 3.4 Globulin 2.8 Albumin/Globulin Ratio 1.2 Assessment & Plan Assessment and plan (1) UTI (urinary tract infection): Status: Acute (2) Acute renal failure: Status: Acute (3) Sepsis: Status: Acute (4) Atrial fibrillation: Status: Acute Additional Assessment & Plan Additional Plan: #Acute renal failure with underlying diabetic nephropathy (nonnephrotic range proteinuria)-secondary to prerenal azotemia. Patient presented with pneumonia, hypotension and hypoxia. Agree with IV fluids, IV antibiotics. Renal ultrasound showed no hydronephrosis. #Acute encephalopathy 2/2 #Sepsis secondary to pneumonia #Community-acquired pneumonia, Influenza PNA #Acute respiratory failure #Urinary tract infection Continue with IV ceftriaxone, azithromycin, Tamiflu #Elevated troponin Probably related to stress response. #Insulin-dependent type 2 diabetes Patient is on metformin, Januvia and insulin at the facility Hold both medications. #Microcytic anemia Possibly related to underlying renal insufficiency. History of thalassemia per chart. #History of CVA #History of functional quadriplegia, dysphagia #History of trach and PEG 2014
[2024-07-19] MEDS: ACETAMINOPHEN 325 MG TABLET 650 MG PO (20:07)
[2024-07-19] MEDS: GABAPENTIN 100 MG CAPSULE PO (20:25)
[2024-07-19] MEDS: INSULIN GLARGINE (Lantus) 5 UNIT/0.05 ML (PER 5 UNITS) 25 UNIT SC (20:25)
[2024-07-19] MEDS: ATORVASTATIN CALCIUM 20 MG TABLET 80 MG PO (20:25)
[2024-07-19] MEDS: cefTRIAXone/D5w 1gm IV premix 50 ML IV (20:26)
--- NOTE | 2024-07-19 23:08 | XR_ITS ---
Examination: Left knee 2 views Technique one AP lateral left knee 2 views Exam date and time: July 19, 2024 1118 hrs. Indications: Onset left knee pain today Findings: Severe osteopenia Advanced tricompartment osteoarthritis Small knee effusion No fracture Impression: Advanced tricompartment osteoarthritis
[2024-07-19] MEDS: traMADol HCL 50 MG TABLET 100 MG PO (23:34)
[2024-07-20] VITALS (9 sets, daily range): BP systolic 116–159; BP diastolic 72–88; PULSE 65–80; RESP 14–19; TEMP 36.3–36.9; O2SAT 91–96; BMI 30.7; BMI 31.2
[2024-07-20 05:54] LABS: Basophils % (Auto) 0 % (0-2.5); Eosinophils # (Auto) 0.2 Thou/mm3 (0.0-0.5); Eosinophils % (Auto) 2 % (0-10); Hematocrit 33.4 % (36.0-46.0); Hemoglobin 10.8 g/dL (12.0-16.0); Immature Granulocytes % (Auto) 3 % (0-0); Immature Granulocytes Auto 0.21 Thou/mm3 (0.00-0.00); Lymphocytes # (Auto) 3.3 Thou/mm3 (1.0-4.8); Lymphocytes % (Auto) 42 % (10-50); Mean Corpuscular HGB Conc 32.3 g/dl (31.0-37.0); Mean Corpuscular Hemoglobin 24.5 pg (25.0-35.0); Mean Corpuscular Volume 76 fL (80-100); Monocytes # (Auto) 0.5 Thou/mm3 (0.0-0.8); Monocytes % (Auto) 6 % (0-12); Neutrophils # (Auto) 3.7 Thou/mm3 (1.8-7.7); Neutrophils % (Auto) 47 % (37-80); Nucleated Red Blood Cell % 0 /100 WBC (0); Platelet Count 216 Thou/mm3 (140-440); RDW Standard Deviation 44.1 fL (36.4-46.3); White Blood Count 7.9 Thou/mm3 (3.6-11.0)
[2024-07-20 06:14] LABS: Alanine Aminotransferase 124 U/L (10-49); Albumin, Serum 3.8 gm/dL (3.4-4.8); Albumin/Globulin Ratio 1.2 (1.2-2.2); Alkaline Phosphatase 136 U/L (46-116); Anion Gap 10 (7-16); Aspartate Amino Transferase 205 U/L (0-34); BUN/Creatinine Ratio 18 Ratio (12-20); Bilirubin,Total 0.3 mg/dL (0.3-1.2); Blood Urea Nitrogen 39 mg/dL (9-23); Calcium 9.2 mg/dL (8.3-10.6); Calcium (Corrected) 9.4 mg/dL (8.5-10.1); Carbon Dioxide 25.9 mMol/L (20.0-31.0); Chloride 105 mMol/L (98-107); Creatinine (Component) 2.2 mg/dL (0.6-1.3); Estimated Creatinine Clearance 29.4 mL/min (>60); Globulin 3.1 gm/dL (2.3-3.5); Glucose 204 mg/dL (74-106); Osmolality,Calculated 296 (275-295); Potassium 3.5 mMol/L (3.4-5.1); Sodium 141 mMol/L (136-145); Total Protein 6.9 gm/dL (5.7-8.2); eGFR 25 See Note
[2024-07-20] MEDS: INSULIN LISPRO (AdmeLOG) 1 UNIT/0.01 ML UNIT SC ×2 (07:31→11:29)
[2024-07-20] MEDS: POTASSIUM CHLORIDE 20 mEq TABCR 40 MEQ PO (08:33)
[2024-07-20] MEDS: amLODIPine BESYLATE 5 MG TABLET 10 MG PO (08:33)
[2024-07-20] MEDS: AZITHROMYCIN 250 MG TABLET PO (08:33)
[2024-07-20] MEDS: SENNA TABLET 1 TAB PO (08:34)
[2024-07-20] MEDS: PANTOPRAZOLE INJ 40 MG VIAL IVP (08:34)
[2024-07-20] MEDS: HEPARIN SOD INJ 5000 UNIT/ML VIAL SC (08:35)
[2024-07-20] MEDS: OSELTAMIVIR 30 MG CAPSULE PO (08:40)
--- NOTE | 2024-07-20 09:10 | XR_ITS ---
Examination: Abdomen sonogram, Limited Date and time of exam: July 20, 2024 0953 hours INDICATIONS: Onset right upper abdominal pain beginning 2 months ago Technique: Real-time canales scale transabdominal sonographic images of the upper abdomen obtained. Findings: Absent gallbladder Common bile duct partially visualized enlarged 0.9 cm no definite stones Pancreas obscured by bowel gas Liver 15.6 cm fatty infiltration lobular contour no focal liver lesions Normal hepatopedal portal venous flow Patent IVC IMPRESSION: Enlarged common bile duct, 0.9 cm If biliary colic is a clinical consideration, suggest MRCP follow-up Fatty liver, primary hepatocellular disease, no focal liver lesions
[2024-07-20] MEDS: SODIUM CHLORIDE 0.9% 500 ML 500 ML 999 ML IV (09:44)
--- NOTE | 2024-07-20 10:31 | PD.NEPHPROG ---
Documentation for date of: 07/21/24 Subjective Subjective Interval history: Ms. Higgins is a 62-year-old lady with extensive medical history of hypertension, dyslipidemia, stroke, depression, diabetes who is residing at [facility] transitional care was sent to the emergency department with altered mental status. Chart review done as I could not get any information from the patient. Apparently patient had a stroke in 2014 and had a trach and PEG and was sent to rehab. Over the years she is slowly recovered and is able to use a wheelchair however currently patient could not give me any information. Medications: Amlodipine, metformin, Januvia, long-acting insulin, esomeprazole, metoprolol tartrate In the ED, patient presented hypotensive 81/54, heart rate 81, respiratory rate 19, afebrile satting 95 on 6 L nasal cannula. Pertinent lab findings included fingerstick blood glucose 167, WBC 17.9, hemoglobin 11 with MCV of 75, platelet 192, potassium 3.6, BUN 50, creatinine 4.0, EGFR 12, lactic acid 1.4, magnesium 1.6, AST 43, ALT 20, troponin 0.087 and Pro-Nicholas 239. Urinalysis shows 3+ proteinuria, hematuria, positive leukocyte esterase, pyuria and +1 bacteria. EKG shows sinus rhythm, chest x-ray shows left-sided pneumonia and head CT is negative for any acute bleed but there is chronic microvascular changes along with encephalomalacia in the right inferior cerebellum secondary to old infarct Patient was admitted for sepsis secondary to pneumonia and urinary tract infection with BETHANY likely secondary to prerenal state. Patient was given IV fluids and IV antibiotics and renal consultation requested. Her last lab in this hospital was 2016 where creatinine was completely normal. No family around. 07/16/2024 patient currently seen in medical floor. Nonverbal. Labs, medications reviewed.WBC 14.9, hemoglobin 10.9, platelets 174. Sodium 141, potassium 3.2, BUN 46, creatinine 3.6, GFR 14. A1c 7.5, lactic acid 1.4, AST 36, ALT 14. Troponin tad elevated at 0.068. Lipids normal. Pro-Nicholas 239. Lipase 59, TSH 0.58. Urinalysis shows a 3+ protein. Urine protein/creatinine 2.5. Urine sodium 77 chest x-ray showed left base pneumonia. Head CT old infarct. No acute CVA. Doppler ultrasound of the right leg negative for DVT. Kidney ultrasound showed bilateral cortical thinning with no hydronephrosis. 07/19/2023 patient currently seen in medical floor. She is more alert and awake today.On azithromycin, ceftriaxone. On low-dose Tamiflu. WBC 4.9, hemoglobin 10.2, platelets 180. Sodium 143, potassium 3.9, BUN 37, creatinine 2.3, calcium 10.2, AST 103, ALT 49, alk phos 112, albumin 3.4 urine culture positive for Morganella blood cultures negative Suspect she has underlying CKD with significant proteinuria. 07/20/2023 patient resting comfortably. BUN and creatinine improving. She is good to be discharged today. Follow-up with funeral limousine driver as an outpatient. Review of Systems Review of Systems Narrative Review of Systems: Patient denies any chest pain, shortness of breath. Complaining of pain in the legs. Exam Vital Signs Temp Pulse Resp BP Pulse Ox O2 Del Method O2 Flow Rate 36.9 C 80 19 157/83 H 94 L Room Air 2 07/20/24 16:07/20/24 16:07/20/24 16:07/20/24 16:07/20/24 16:00 07/20/24 16:00 07/17/24 12:00 Narrative Exam GENERAL APPEARANCE: Patient comfortable, alert and awake NECK: Neck supple, no JVD or bruit Old tracheostomy scar CARDIOVASCULAR: Heart regular, no murmurs LUNGS/CHEST: Chest clear to auscultation. No rales, rhonchi, wheezing ABDOMEN: Soft, nontender, nondistended. No masses. Normal bowel sounds. Previous G-tube was removed EXTREMITIES: No edema, clubbing or cyanosis. SKIN: Skin exam normal without any rashes MUSCULOSKELETAL: In bed NEUROLOGICAL : No neurological deficits Objective Labs 07/20/24 05:19 07/20/24 05:19 Assessment & Plan Assessment and plan (1) UTI (urinary tract infection): Status: Acute (2) Acute renal failure: Status: Acute (3) Sepsis: Status: Acute (4) Atrial fibrillation: Status: Acute Additional Assessment & Plan Additional Plan: #Acute renal failure with underlying diabetic nephropathy (nonnephrotic range proteinuria)-secondary to prerenal azotemia. Patient presented with pneumonia, hypotension and hypoxia. Agree with IV fluids, IV antibiotics. Renal ultrasound showed no hydronephrosis. #Acute encephalopathy 2/2 #Sepsis secondary to pneumonia #Community-acquired pneumonia, Influenza PNA #Acute respiratory failure #Urinary tract infection Continue with IV ceftriaxone, azithromycin, Tamiflu--dc today #Elevated troponin Probably related to stress response. #Insulin-dependent type 2 diabetes Patient is on metformin, Januvia and insulin at the facility Hold both medications. #Microcytic anemia Possibly related to underlying renal insufficiency. History of thalassemia per chart. #History of CVA #History of functional quadriplegia, dysphagia #History of trach and PEG 2015
[2024-07-20] MEDS: INSULIN LISPRO (AdmeLOG) 1 UNIT/0.01 ML UNIT 6 UNIT SC (11:29)
--- NOTE | 2024-07-20 13:43 | ESDS_ITS ---
<Statement entered by Taz Velasco MD - 07/20/24 20:24> I discussed with and supervised my co-resident involved in the care of this patient. I agree with the assessment and plan as documented above. Taz Velasco,PGY-3 Disclaimer: Despite multiple revisions, due to the dictation software being used, the document below may not be free of grammatical errors including phonetic/typographic errors. However, this does not deter from our commitment to providing health care in the patient's best interest in mind. Planned Discharge Date 07/20/24 DS: Providers Provider Date of admission: 07/16/24 02:38 Primary care physician: Physician No Primary/Family Admitting Provider: Abel Gupta MD Attending Provider on Admission: Gonzalez Banks DO Consults: 07/16/24 02:41 Referral Speech Therapy Routine Comment: Hx of dysphagia 08/19 to hx of CVA 07/16/24 06:37 Referral Registered Dietitian Routine Comment: [facility] Referral - Knowledge Deficit Routine Comment: Positive screening for knowledge deficit needs. 07/16/24 06:42 Referral Wound Care Routine Comment: 07/16/24 09:57 Consult to Nephrology Urgent Comment: renal failure Consulting Provider: Carlie Payne 07/18/24 10:08 Consult to Cardiology Routine Comment: New onset Afib RVR Consulting Provider: Razia Rosario Attending Provider on DC: Gonzalez Banks DO Discharging Provider: Gonzalez Banks DO DS: Diagnosis Problem List Completed Was Problem List Reviewed/Reconciled?: Yes Hospital Course Hospital Course Hospital course: 62-year-old female with past medical history of CVA, hypertension, hyperlipidemia, depression, anemia of chronic disease, CKD, IDDM, and diverticulosis was admitted to hospital on 07/16/2024 due to acute encephalopathy secondary to sepsis secondary to influenza pneumonia and acute hypoxic respiratory failure. In the ED patient came in with chief complaints of altered mental status as well as low blood pressure. Initially was hypotensive and afebrile. Initial labs were relevant for leukocytosis (14.9), anemia (10.9), elevated BUN 48, creatinine 3.9, elevated troponin 0.068 and down trended, and UA is positive for leukocytes esterase as well as bacteria. Initial imaging included chest x-ray which shows some pneumonia of left base, head CT which showed some old appearing infarcts, venous Doppler was negative for DVT, renal ultrasound showed bilateral renal cortical thinning and bilateral renal parenchymal scar formation. Urine culture grew Morganella morganii. Patient received IV antibiotics (ceftriaxone, azithromycin) and Tamiflu. Nephrology was consulted in the setting of acute renal failure and advised to continue patient on IV fluids and antibiotics. Patient developed new onset A- fib which was most likely secondary to electrolyte imbalance and cardiology stated that this was most likely the case and there was no need to start any amiodarone or rate control medication for now as patient went back to into his normal sinus rhythm on that same day. Electrolytes were repleted through hospital stay. At the time of discharge patient was stable enough to be discharged to a long-term facility. Discharge plan: ?Started amlodipine 5 mg daily ?Continue azithromycin 250 and Tamiflu for 1 more day ?Continue all other prescribed medications as indicated ? Return to the ED if symptoms persist or worsen Problem list: #Acute encephalopathy #Sepsis secondary to community-acquired pneumonia #Community-acquired pneumonia, influenza pneumonia #Acute hypoxic respiratory failure #UTI #Leukocytosis #Acute renal failure #Diabetic nephropathy #A-fib with RVR, resolved #Elevated troponins #Hypertension #IDDM #Microcytic anemia #Hx of CVA #Hx of hyperlipidemia Case disclosed with Attending Dr. Banks and My senior Dr. Velasco PGY3. Erwin Brown PGY1 Status at Discharge Overall status at discharge: patient is progressing back to baseline Time Spent with Patient Time attestation: Total time spent providing and/or coordinating discharge services: >35 min Exam Vital Signs Temp Pulse Resp BP Pulse Ox O2 Del Method O2 Flow Rate 97.6 F 65 17 116/72 92 L Room Air 2 07/20/24 12:00 07/20/24 12:00 07/20/24 12:00 07/20/24 12:00 07/20/24 12:00 07/20/24 12:00 07/17/24 12:00 Narrative Exam General: A/O x2, no acute distress Eyes: PERRL, EOMI. Anicteric, vision grossly intact. Ears: No ear pain, no ear discharge, Hearing grossly intact. Nose: No nasal discharge. Mouth/Throat: Dry mucous membranes, no redness, no lesions. Neck: Neck supple, non-tender, no cervical lymphadenopathy. Lungs: Clear BERRY to auscultation and percussion, No accessory muscle use. Cardio: Normal S1/S2, regular rhythm, no murmurs, no JVD Abdomen: Soft, non-tender, no palpable masses, peristalsis present, no guarding or rebound. Extremities: Symmetrical, no significant deformities, no peripheral edema , non-tender, peripheral pulses presents. Skin: No rashes, no lesions, warm to touch. Neuro: No focal neurological deficits. decreased strength BERRY UE and LE 4/5, sensory intact. Discharge Plan Plan Patient Disposition: Xfer Skilled Nsg Fac (SNF) Patient condition on transfer: Stable Care Plan Goals: Add amlodipine for hypertension Finish azithromycin and Tamiflu course as prescribed (1 more day) Return precautions provided Prescriptions/Referrals Prescriptions/Med Rec: New amlodipine 5 mg Tablet 10 mg PO DAILY Qty: 30 0RF Continued glucagon HCl [Glucagon (HCl) Emergency Kit] 1 mg Recon Soln 1 mg SUBCUT Q20M PRN (Reason: hypo) Rx Instructions: until target blood sugar attained metformin 500 mg tablet 500 mg PO BID gabapentin 100 mg capsule 100 mg PO HS rosuvastatin 20 mg tablet 20 mg PO HS Januvia 100 mg tablet 100 mg PO DAILY insulin glargine-yfgn 100 unit/mL (3 mL) insulin pen 25 unit SUBCUT HS insulin glargine-yfgn 100 unit/mL (3 mL) insulin pen 7 unit SUBCUT AC Discontinued oseltamivir 75 mg capsule 75 mg PO BID amlodipine 5 mg tablet 5 mg PO DAILY No Action azithromycin 250 mg tablet 250 mg PO DAILY Patient Comments: to start on 2nd day @ 250 mg for 5 days. Referrals: No Primary/Family,Physician [Primary Care Provider] - Patient/Caregiver Discharge Instructions Education Materials: What Is Pneumonia?, Preventing Pneumonia, Treating Pneumonia, When You Have Pneumonia Print Language: Yemeni Stand Alone Forms: Chiqui Award Info., Patient Portal Info Letter Discharge Order Discharge Orders: Discharge (Routine); Ordered 07/20/24 Ordered By: Taz Velasco Quality Discharge Quality Measures VTE prophylaxis Attestestation Attestation I have discussed and was present for the essential components of the discharge history, physical examination, diagnosis, and discharge treatment plan with the resident. I agree with the patient's discharge care as documented by the resident and amended herein by me. Jason Banks DO. The patient understood all discharge instructions, all questions were answered satisfactorily. The patient was instructed to return to the Emergency Department is symptoms worsened or persisted. Patient was stable, afebrile, tolerating p.o. intake at time of discharge back to SNF. Patient did have transaminitis while she was here and a slightly dilated CBD with no positive stones identified however likely secondary to antibiotics. Patient was completely asymptomatic with no right upper quadrant or epigastric tenderness. Respiratory frankel the patient was significantly improved, SpO2 95% on room air at time of discharge back to SNF. Although this document has been carefully reviewed, there may still be some phonetic and other typographical errors. These errors are purely grammatical due to imperfections in the software program and should not be construed in any way to compromise the substance of the patient's medical care during this visit.
[2024-07-20] MEDS: INSULIN HUM REGULAR 1 UNIT/0.01 ML (PER UNIT) 5 UNIT SC (14:20)
--- NOTE | 2024-07-20 15:20 | PC.SS ---
Follow up note: Patient has d/c orders for today. She will return back to facility. SS attempted to contact friend, Chelsy @ [phone]. However, no response. [facility] staff indicate that patient is her own Rp. She is aware that she's returning today. set up transport with [facility], Reservation# [id number] for 4:30pm [facility]
== END 2024-07-20 17:00 | disposition skilled nursing facility (03) | DRG 720 ==
LOC: SERX 07-16 00:37 → SERHOLD 07-16 02:56 → S3NX 07-16 04:59
PROVIDERS: Student in an Organized Health Care Education/Training Program; Admitting Provider Internal Medicine; Emergency Provider Emergency Medicine; Visit Provider Student in an Organized Health Care Education/Training Program
DX: A41.89 Other specified sepsis (principal); R65.20 Severe sepsis without septic shock; F32.A Depression, unspecified; E78.5 Hyperlipidemia, unspecified; R53.2 Functional quadriplegia; D63.1 Anemia in chronic kidney disease; N18.9 Chronic kidney disease, unspecified; I12.9 Hypertensive chronic kidney disease with stage 1 through stage 4 chronic kidney disease, or unspecified chronic kidney disease; I95.9 Hypotension, unspecified; G93.41 Metabolic encephalopathy; N17.9 Acute kidney failure, unspecified; N39.0 Urinary tract infection, site not specified; E11.22 Type 2 diabetes mellitus with diabetic chronic kidney disease; J10.08 Influenza due to other identified influenza virus with other specified pneumonia; J12.89 Other viral pneumonia; J96.01 Acute respiratory failure with hypoxia; R13.10 Dysphagia, unspecified; Z86.73 Personal history of transient ischemic attack (TIA), and cerebral infarction without residual deficits; R21 Rash and other nonspecific skin eruption; D56.9 Thalassemia, unspecified; E87.6 Hypokalemia; I48.0 Paroxysmal atrial fibrillation
CPT/HCPCS: 36415; 70450; 71045; 73560; 76705; 76770; 80048; 80053; 80061; 81001; 82436; 82565; 82570; 83036; 83605; 83615; 83690; 83735; 83880; 84100; 84132; 84133; 84145; 84156; 84300; 84443; 84484; 85025; 85610; 85730; 87040; 87077; 87081; 87086; 87186; 87400; 87811; 92526; 92610; 93005; 93225; 93306; 93971; 94640; 94664; 96361; 96365; 99285; A9270; J0696; J1643; J1815; J2470; J3475; J7030; J7040; J1644

== ENCOUNTER 2025-03-14 23:37 | Emergency (ER) | payer MEDICAID, SELFPAY ==
[2025-03-14 23:38] VITALS: BP 133/81; PULSE 75; RESP 19; TEMP 36.4; O2SAT 99
[2025-03-14 23:54] VITALS: BP 161/84; PULSE 73; PULSE 75; RESP 18; RESP 19; TEMP 36.4; O2SAT 98; O2SAT 99; BMI 90.7
[2025-03-14 23:55] VITALS: BMI 37.2
--- NOTE | 2025-03-15 00:44 | XR_ITS ---
Examination: AP chest single view Technique one AP portable semiupright chest single view Date and time: March 15, 2025, 0131 hours INDICATIONS: Chest pain shortness of breath beginning today. FINDINGS: Mild enlargement cardiac contour Prominent vascular congestion. No lobar pneumonia. Moderate osteopenia. IMPRESSION: Suspicious for early heart failure.
--- NOTE | 2025-03-15 00:44 | EKG_ITS ---
[facility] (Formerly [facility]) Test Date: 2025-03-15 Pat Name: NICKI FELICIANO Department: Room: - Gender: Female Computer Operations Analyst: : 1960 Requested By: Da Moreno Order Number: [id number] Reading MD: Da Moreno Measurements Intervals [place] Rate: 66 P: 23 MD: 185 QRS: 0 QRSD: 96 T: 91 QT: 446 QTc: 469 Interpretive Statements SINUS RHYTHM MODERATE T-WAVE ABNORMALITY, CONSIDER LATERAL ISCHEMIA [-0.1+ mV T-WAVE IN I/aVL/V5/V6] Compared to ECG 07/18/2024 01:45:36 Possible ischemia now present Atrial fibrillation no longer present T-wave abnormality still present /store/S0/[id number].pdf
[2025-03-15 01:42] LABS: Basophils # (Auto) 0.1 Thou/mm3 (0.0-0.2); Basophils % (Auto) 1 % (0-2.5); Eosinophils # (Auto) 0.2 Thou/mm3 (0.0-0.5); Eosinophils % (Auto) 2 % (0-10); Hematocrit 36.2 % (36.0-46.0); Hemoglobin 11.6 g/dL (12.0-16.0); Immature Granulocytes Auto 0.06 Thou/mm3 (0.00-0.00); Lymphocytes # (Auto) 3.0 Thou/mm3 (1.0-4.8); Lymphocytes % (Auto) 31 % (10-50); Mean Corpuscular HGB Conc 32.0 g/dl (31.0-37.0); Mean Corpuscular Hemoglobin 24.4 pg (25.0-35.0); Mean Corpuscular Volume 76 fL (80-100); Monocytes # (Auto) 0.6 Thou/mm3 (0.0-0.8); Monocytes % (Auto) 6 % (0-12); Neutrophils # (Auto) 5.8 Thou/mm3 (1.8-7.7); Neutrophils % (Auto) 60 % (37-80); Nucleated Red Blood Cell # 0.00 Thou/mm3 (0.00-0.00); Nucleated Red Blood Cell % 0 /100 WBC (0); Platelet Count 291 Thou/mm3 (140-440); RDW Standard Deviation 43.8 fL (36.4-46.3); Red Blood Count 4.75 Miln/mm3 (4.00-5.20); White Blood Count 9.7 Thou/mm3 (3.6-11.0)
[2025-03-15 01:51] LABS: Alanine Aminotransferase 14 U/L (10-49); Albumin, Serum 3.6 gm/dL (3.4-4.8); Albumin/Globulin Ratio 1.2 (1.2-2.2); Alkaline Phosphatase 116 U/L (46-116); Anion Gap 10 (7-16); Aspartate Amino Transferase 18 U/L (0-34); BUN/Creatinine Ratio 12 Ratio (12-20); Bilirubin,Total 0.2 mg/dL (0.3-1.2); Blood Urea Nitrogen 25 mg/dL (9-23); Calcium 9.7 mg/dL (8.3-10.6); Calcium (Corrected) 10.0 mg/dL (8.5-10.1); Carbon Dioxide 25.9 mMol/L (20.0-31.0); Chloride 104 mMol/L (98-107); Creatinine (Component) 2.1 mg/dL (0.6-1.3); Estimated Creatinine Clearance 35.8 mL/min (>60); Globulin 3.1 gm/dL (2.3-3.5); Glucose 139 mg/dL (74-106); Osmolality,Calculated 285 (275-295); Potassium 3.6 mMol/L (3.4-5.1); Sodium 140 mMol/L (136-145); Total Protein 6.7 gm/dL (5.7-8.2); Troponin I < 0.020 ng/mL (0.0-0.045); eGFR 26 See Note
[2025-03-15 01:55] VITALS: BP 154/77; PULSE 65; RESP 12; TEMP 36.6; O2SAT 96
[2025-03-15 02:16] LABS: B-Type Natriuretic Peptide 48 pg/mL (0-100)
--- NOTE | 2025-03-15 02:16 | XR_ITS ---
Examination: Venous duplex lower extremity sonogram, bilateral. Date and time of exam: March 15, 2025, 0307 hours INDICATIONS: Bilateral leg swelling months Technique: Multiple sonographic images of the deep venous system have been obtained. B-mode/2-D grayscale imaging of vascular structures and Doppler spectral analysis (waveforms) and color performed Both legs are examined. Findings: Deep venous systems do not demonstrate abnormal echogenicity. All visualized deep veins exhibit compressibility. All visualized deep veins exhibit augmentation. Impression: Negative for deep vein thrombosis
--- NOTE | 2025-03-15 02:16 | PD.EDEXREM ---
ED Extremity Problem RME/HPI General Chief complaint: Extremity Problem,Nontraumatic Stated complaint: LEG PAIN AND SWELLING Time Seen by Provider: 03/15/25 00:19 Arrival date/time: 03/14/25 23:37 RME / HPI RME / HPI Narrative: DR. CHRISTIE MAIN ED EVALUATION: Patient reports chronic BLE edema now with worsening pain, left > right without noted drainage, fever, or chills. Patient is sedentary and denies shortness of breath or Hx of CHF. PMH includes CVA, HTN, Depression, Anemia, CKD, and IDDM. Shx noncontributory. Social history is negative of alcoholism and smoking. Related Data Home Medications ?Medication ?Instructions ?Recorded ?Confirmed azithromycin 250 mg tablet 250 mg PO DAILY 07/16/24 07/16/24 gabapentin 100 mg capsule 100 mg PO HS 07/16/24 07/16/24 glucagon HCl 1 mg solution for 1 mg subcut Q20M PRN hypo 07/16/24 07/16/24 injection (Glucagon (HCl) Emergency Kit) insulin glargine-yfgn 100 unit/mL 7 unit subcut AC 07/16/24 07/16/24 (3 mL) subcutaneous pen insulin glargine-yfgn 100 unit/mL 25 unit subcut HS 07/16/24 07/16/24 (3 mL) subcutaneous pen metformin 500 mg tablet 500 mg PO BID 07/16/24 07/16/24 rosuvastatin 20 mg tablet 20 mg PO HS 07/16/24 07/16/24 sitagliptin phosphate 100 mg 100 mg PO DAILY 07/16/24 07/16/24 tablet (Januvia) Previous Rx's ?Medication ?Instructions ?Recorded amlodipine 5 mg tablet 10 mg (2 x 5 mg) PO DAILY #30 tabs 07/19/24 amoxicillin 600 mg-potassium 7.3 ml PO BID 5 days #73 mL 03/15/25 clavulanate 42.9 mg/5 mL oral suspension (Augmentin ES-) bumetanide 1 mg tablet 0.5 mg (1/2 x 1 mg) PO QDAY 3 days 03/15/25 #2 tabs hydrocodone 5 mg-acetaminophen 325 1 tab PO Q8H PRN pain #20 tabs 03/15/25 mg tablet Allergies Allergy/AdvReac Type Severity Reaction Status Date / Time No Known Allergies Allergy Verified 08/17/17 21:19 Review of Systems Review of Systems Systems Reviewed: All systems reviewed, normal except as documented Past Medical History Past Medical History NEUROLOGIC: Positive Cerebrovascular Accident CARDIAC: Positive Cardiac Disorders, Hypercholesterolemia, Hypertension and Hypotension GENITOURINARY: Positive Renal Disease ENDOCRINE: Positive Diabetes Mellitus Type 2 PSYCHO/SOCIAL: Positive Depression OTHER HISTORY: Positive Hospitalization, Falls and Blood Transfusions Surgical History SURGICAL: Positive Tracheostomy and Gastrostomy ED Exam Narrative Physical exam: GEN. APPEARANCE: The patient is alert awake oriented X-3 in no distress, lying down comfortably, does not look ill/toxic. Patient has good eye contact. Patient is cooperative. VITALS: All vitals were reviewed and the pulse ox is 96% on room air which is normal according to my interpretation. HEENT: Normocephalic, atraumatic. Pupils are equal and reactive. Oral mucosa is moist. Patent Nares NECK: Supple, nontender, no thyromegaly, no meningismus, no JVD, no step offs CHEST: Symmetrical, atraumatic, and with equal expansion , Nontender on palpation no deformity and no crepitus. CARDIOVASCULAR: Heart regular rhythm no murmur or gallop rub or extra beats. LUNGS: Clear to auscultation bilaterally with symmetrical chest rise. No laboring tachypnea or wheezing. No intercostal subcostal retraction. No rales and no rhonchi. ABDOMEN: Soft, flat, nontender to palpation, no guarding or rebound tenderness. There are no abnormal masses palpated. Active and normal bowel sounds. EXTREMITIES: 2+ putting edema external dorsum of BL feet to proximal leg. No obvious induration or warmth. Noted tenderness diffusely and extending up to femoral triangle, BL distal function intact. No cyanosis. Patient is able to move all 4 extremities well, with full ROM and good CSM. SKIN: Warm and dry, no jaundice or rashes noted. MUSCULOSKELETAL: No lubar or midline bony tenderness. There is no CVA tenderness. No paraspinal muscle spasm or tenderness. NEURO: Patient is ARMENTA x 4, Cranial nerves II through XII grossly intact. There is no focal neurologic deficits noted. GCS is 15, PNS and ULTR[employer] APPLICATIONS SPECIALIST appear grossly intact. PSYCHIATRIC: Patient is in normal mood and affect, cooperative, no SI or HI or hallucinations. Course Quality Measures none Orders Category Date Time Status Bedside Blood Glucose NOW Care 03/15/25 01:58 Active EKG (ED ONLY) *Do not use* NOW Care 03/15/25 00:44 Completed EKG (ED Only) Stat Exams 03/15/25 00:44 Draft US venous doppler LE BI Stat Exams 03/15/25 02:16 Taken XR chest 1V portable Stat Exams 03/15/25 00:44 Taken B-Type Natriuretic Peptide Stat Lab 03/15/25 00:45 Completed CBC Stat Lab 03/15/25 00:45 Completed Comprehensive Metabolic Panel Stat Lab 03/15/25 00:45 Completed Troponin I Stat Lab 03/15/25 00:45 Completed UA [Urinalysis] Stat Lab 03/15/25 01:44 Completed Morphine Inj Med 03/15/25 02:16 Discontinued 2 mg IVP X1 ONE Ondansetron Inj [Zofran Inj] Med 03/15/25 02:16 Discontinued 4 mg IVP X1 ONE Vital Signs Vital signs: Vital Signs Temperature 97.6 F 03/14/25 23:38 Pulse Rate 75 03/14/25 23:38 Respiratory Rate 19 03/14/25 23:38 Blood Pressure 133/81 H 03/14/25 23:38 Pulse Oximetry (%) 99 03/14/25 23:38 Extremity Problem MDM Narrative MDM Narrative:: Scribe Attestation: Apoorva Jhaveri, am scribing for and in the presence of Dr. Christie. Provider Notation: Although this document has been carefully reviewed, there may still be some phonetic and other typographical errors. These errors are purely grammatical due to imperfections in the software program and should not be construed in any way to? compromise the substance of the patient's medical care during this visit. Patient reports chronic BLE edema now with worsening pain, left > right without noted drainage, fever, or chills. Patient is sedentary and denies shortness of breath or Hx of CHF. Please see PE findings. laboratory markers including CBC and serum chemistries notable for mild anemia with hemoglobin of 11.6. Chronic stable insufficiency, Troponin I and BNP normal. CXR demonstrates chronic changes. No signs of CHF or liver failure. Patient ahs dependent edema to BLE. DVT studies negative. Patient treated with low-dose narcotic analgesic and imperical ABX.Will be discharged to home on outpatient ABX therapy, analgesics, and short course of diuretic. Final diagnoses include dependent edema and cellulitis of RLE. Patient data External records reviewed:: [facility] previous records (Reviewed prior ED records from 07/15/24. Patient was seen for Acute renal failure.) Clinical information provided by:: patient Social determinants that could affect healthcare access:: none Patient has the following chronic illnesses:: Hypercholesterolemia, Hypertension, Hypotension, Renal Disease, Diabetes Mellitus Type 2, Depression How is presenting disease/condition affected by chronic disease/condition?: exacerbated by Evaluation data The following diagnostics were reviewed and interpreted by me:: lab results, radiology exam(s) and EKG tracing(s) Lab and/or radiology exams considered but not ordered:: None Interpretation Summary: RADIOLOGY Chest X-Ray: Pending official radiology report. Venous Doppler Study: Pending official radiology report. Medications / Prescriptions Medications or Prescriptions considered but not ordered:: None Medication administrations:: Medication Administration History Discontinued Medications Morphine Sulfate (Morphine Sulf Inj 10 Mg/Ml Vial) 2 mg IVP X1 ONE Stop: 03/15/25 02:17 Last Admin: 03/15/25 02:57 Dose: 2 mg Documented By: WOLF Ondansetron HCl (Ondansetron Inj 2 Mg/Ml Inj 2 Ml) 4 mg IVP X1 ONE; Protocol Stop: 03/15/25 02:17 Last Admin: 03/15/25 02:57 Dose: 4 mg Documented By: WOLF See abobve if any. Consultations Consultation(s) initiated? (list below): No Diagnosis Extremity Problem Differential Diagnosis: herpes zoster, gout, cellulitis, superficial thrombophlebitis, lower extremity edema and deep vein thrombosis of lower extremity Most likely diagnosis given after review of the tests above:: Dependent edema, Cellulitis of leg without foot, right Admission Indicated Admission indicated?: not indicated Explain why admission is indicated or not indicated:: Patient does not meet admission criteria. Admission Request Was there a request for admission?: No Disposition Plan Disposition Plan: Discharge Discharge Attestation Discharge Attestation: The patient and all family members were given an opportunity to ask questions and understood the discharge instructions. Discharge instructions specifically effects, indications for sooner follow up or return to the emergency department, and the expected course of current diagnosis. Patient condition: Stable Discharge Plan Plan Patient Disposition: HOME (Self Care) Prescriptions/Referrals Prescriptions/Med Rec: New amoxicillin-pot clavulanate [Augmentin ES-600] 600-42.9 mg/5 mL suspension for reconstitution 7.3 ml PO BID 5 Days Qty: 73 0RF hydrocodone-acetaminophen 5-325 mg tablet 1 tab PO Q8H MDD 3 tab PRN (Reason: pain) Qty: 20 0RF bumetanide 1 mg tablet 0.5 mg PO QDAY 3 Days Qty: 2 0RF No Action azithromycin 250 mg tablet 250 mg PO DAILY Patient Comments: to start on 2nd day @ 250 mg for 5 days. glucagon HCl [Glucagon (HCl) Emergency Kit] 1 mg Recon Soln 1 mg SUBCUT Q20M PRN (Reason: hypo) Rx Instructions: until target blood sugar attained metformin 500 mg tablet 500 mg PO BID gabapentin 100 mg capsule 100 mg PO HS rosuvastatin 20 mg tablet 20 mg PO HS Januvia 100 mg tablet 100 mg PO DAILY insulin glargine-yfgn 100 unit/mL (3 mL) insulin pen 25 unit SUBCUT HS insulin glargine-yfgn 100 unit/mL (3 mL) insulin pen 7 unit SUBCUT AC amlodipine 5 mg Tablet 10 mg PO DAILY Qty: 30 0RF Referrals: Darren([facility])Nikolai MD [Primary Care Provider] - In 1 week Problem List Clinical Impression: Dependent edema, Cellulitis of leg without foot, right Patient/Caregiver Discharge Instructions Education Materials: ED Cellulitis, ED Leg Swelling in Both Legs, ED Lymphedema Additional Instructions: Elevate both legs at night. Medication as directed. Follow-up with primary care doctor in 3 to 5 days. Print Language: Palestinian Stand Alone Forms: [employer]i Award Info., Patient Portal Info Letter
[2025-03-15 02:17] LABS: Collection Type, Urine Clean Catch
[2025-03-15 02:25] LABS: Bacteria,Urine Rare; Bilirubin,Urine Negative (Negative); Blood,Urine Trace (Negative); Clarity,Urine Clear (Clear/Hazy); Color,Urine Lt-Yellow (Lt Yel-Yel); Glucose, Urine 4+ (Negative); Ketones,Urine Negative (Negative); Leukocyte Esterase,Urine Negative (Negative); Nitrite,Urine Negative (Negative); PH,Urine 6.5 (5.0-7.0); Protein,Urine 2+ (Neg - Trace); RBC,Urine 1 /hpf (0-3); Specific Gravity,Urine 1.008 (1.001-1.035); Squamous Epithelial Cell,Urine 2 /hpf (0-5); Urobilinogen,Urine Negative mg/dL (0.0-1.0); WBC,Urine 9 /hpf (0-5)
[2025-03-15] MEDS: MORPHINE SULF INJ 10 MG/ML VIAL 2 MG IVP (02:57)
[2025-03-15] MEDS: ONDANSETRON INJ 2 MG/ML INJ 2 ML 4 MG IVP (02:57)
--- NOTE | 2025-03-15 04:32 | PRELIM_ITS ---
Bilateral lower extremity venous Doppler ultrasound. March 15, 2025 0307 hours Clinical history: Rule out deep vein thrombosis. Technique: Duplex scan of the bilateral lower extremity deep venous systems was performed utilizing 2D grayscale imaging, Doppler spectral analysis and color flow Doppler and with compression. Comparison: None. Findings: Hayes scale, color flow and spectral Doppler evaluation of the lower extremity deep veins was performed. Right: The common femoral, superficial femoral and popliteal veins are patent and compressible. Normal respiratory variation and augmentation are noted. The great saphenous vein is patent at the level of the saphenofemoral junction. The peroneal vein is patent and compressible. The posterior tibial vein is not visualized. There is no evidence of occlusive or nonocclusive thrombus. Left: The common femoral, superficial femoral and popliteal veins are patent and compressible. Normal respiratory variation and augmentation are noted. The great saphenous vein is patent at the level of the saphenofemoral junction. The peroneal vein is patent and compressible. The posterior tibial vein is not visualized. There is no evidence of occlusive or nonocclusive thrombus. There is subcutaneous edema in bilateral calves. Impression: No sonographic evidence of deep venous thrombosis in both lower extremities. Report Electronically Signed By: Doug Durbin 03/15/2025 4:31:23 AM [EST]
[2025-03-15 06:11] VITALS: BP 177/92; PULSE 71; RESP 16; TEMP 36.3; O2SAT 100
--- NOTE | 2025-03-15 07:13 | PD.EDEXREM ---
ED Extremity Problem RME/HPI General Chief complaint: Extremity Problem,Nontraumatic Stated complaint: LEG PAIN AND SWELLING Time Seen by Provider: 03/15/25 00:19 Source: patient Arrival date/time: 03/14/25 23:37. Patient was seen by me at 06 15 on 03/15/2025 Limitations: no limitations RME / HPI RME / HPI Narrative: DR. CHRISTIE MAIN ED EVALUATION: Patient reports chronic BLE edema now with worsening pain, left > right without noted drainage, fever, or chills. Patient is sedentary and denies shortness of breath or Hx of CHF. PMH includes CVA, HTN, Depression, Anemia, CKD, and IDDM. Shx noncontributory. Social history is negative of alcoholism and smoking. MD Complaint: extremity pain Onset (ago): day(s) Consistency: constant Location: left, right and lower extremity Severity scale (1-10): 3 Quality: dull and constant Radiation: none Relieving factors: nothing Exacerbating factors: nothing Associated symptoms: denies other symptoms Context: other (History of diabetes, patient she states she does not have a regular medical doctor) Related Data Home Medications ?Medication ?Instructions ?Recorded ?Confirmed azithromycin 250 mg tablet 250 mg PO DAILY 07/16/24 07/16/24 gabapentin 100 mg capsule 100 mg PO HS 07/16/24 07/16/24 glucagon HCl 1 mg solution for 1 mg subcut Q20M PRN hypo 07/16/24 07/16/24 injection (Glucagon (HCl) Emergency Kit) insulin glargine-yfgn 100 unit/mL 7 unit subcut AC 07/16/24 07/16/24 (3 mL) subcutaneous pen insulin glargine-yfgn 100 unit/mL 25 unit subcut HS 07/16/24 07/16/24 (3 mL) subcutaneous pen metformin 500 mg tablet 500 mg PO BID 07/16/24 07/16/24 rosuvastatin 20 mg tablet 20 mg PO HS 07/16/24 07/16/24 sitagliptin phosphate 100 mg 100 mg PO DAILY 07/16/24 07/16/24 tablet (Januvia) Previous Rx's ?Medication ?Instructions ?Recorded amlodipine 5 mg tablet 10 mg (2 x 5 mg) PO DAILY #30 tabs 07/19/24 amoxicillin 600 mg-potassium 7.3 ml PO BID 5 days #73 mL 03/15/25 clavulanate 42.9 mg/5 mL oral suspension (Augmentin ES-) bumetanide 1 mg tablet 0.5 mg (1/2 x 1 mg) PO QDAY 3 days 03/15/25 #2 tabs hydrocodone 5 mg-acetaminophen 325 1 tab PO Q8H PRN pain #20 tabs 03/15/25 mg tablet Allergies Allergy/AdvReac Type Severity Reaction Status Date / Time No Known Allergies Allergy Verified 08/17/17 21:19 Review of Systems Review of Systems Systems Reviewed: All systems reviewed, normal except as documented Past Medical History Past Medical History NEUROLOGIC: Positive Cerebrovascular Accident CARDIAC: Positive Cardiac Disorders, Hypercholesterolemia, Hypertension and Hypotension; Negative Congestive Heart Failure RESPIRATORY: Negative Chronic Obstructive Pulmonary Disease (COPD) GENITOURINARY: Positive Renal Disease ENDOCRINE: Positive Diabetes Mellitus Type 2; Negative Diabetes Mellitus Type 1 PSYCHO/SOCIAL: Positive Depression OTHER HISTORY: Positive Hospitalization, Falls and Blood Transfusions; Negative Anesthesia Reactions Surgical History SURGICAL: Positive Tracheostomy and Gastrostomy Social History SMOKING STATUS: Never smoker ED Exam General Limitations: Present no limitations General appearance: Present alert and in no apparent distress Head Head exam: Present atraumatic Eye Eye exam: Present normal appearance, PERRL and EOMI ENT ENT exam: Present normal exam, normal oropharynx and mucous membranes moist Neck Neck exam: Present normal inspection, full ROM and trachea midline Chest Chest inspection: Present normal inspection and symmetric chest wall rise Respiratory Respiratory exam: Present normal lung sounds bilaterally Cardiovascular Cardiovascular exam: Present regular rate, normal rhythm and normal heart sounds Abdominal Exam Abdominal exam: Present soft and normal bowel sounds Extremities Exam Extremities exam: Present full ROM; Absent joint swelling or calf tenderness Expanded Lower Extremity Exam Hip/Pelvis exam: Present full ROM and swelling (Trace bilateral pretibial edema, negative Homans' sign. No palpable cords. Very mild venous stasis changes on the anterior pretibial areas.); Absent abrasion, laceration, ecchymosis, deformity, crepitus or dislocation Upper leg exam: Present normal inspection Back Exam Back exam: Present normal inspection and full ROM Neurological Exam Neurological exam: Present alert, oriented X3 and CN II-XII intact Psychiatric Psychiatric exam: Present normal affect and normal mood Skin Skin exam: Present warm, dry, intact and normal color Course Quality Measures none Orders Category Date Time Status Bedside Blood Glucose NOW Care 03/15/25 01:58 Active EKG (ED ONLY) *Do not use* NOW Care 03/15/25 00:44 Completed EKG (ED Only) Stat Exams 03/15/25 00:44 Draft US venous doppler LE BI Stat Exams 03/15/25 02:16 Completed XR chest 1V portable Stat Exams 03/15/25 00:44 Completed B-Type Natriuretic Peptide Stat Lab 03/15/25 00:45 Completed CBC Stat Lab 03/15/25 00:45 Completed Comprehensive Metabolic Panel Stat Lab 03/15/25 00:45 Completed Troponin I Stat Lab 03/15/25 00:45 Completed UA [Urinalysis] Stat Lab 03/15/25 01:44 Completed Morphine Inj Med 03/15/25 02:16 Discontinued 2 mg IVP X1 ONE Ondansetron Inj [Zofran Inj] Med 03/15/25 02:16 Discontinued 4 mg IVP X1 ONE Vital Signs Vital signs: Vital Signs Temperature 97.6 F 03/14/25 23:38 Pulse Rate 75 03/14/25 23:38 Respiratory Rate 19 03/14/25 23:38 Blood Pressure 133/81 H 03/14/25 23:38 Pulse Oximetry (%) 99 03/14/25 23:38 Extremity Problem MDM Narrative MDM Narrative:: Patient is a 65-year-old female who complains of bodyaches but mainly has lower extremity discomfort that is chronic. She is diabetic. She does not have a primary care doctor. She has never been tried on gabapentin or any other medications. She does have mild pretibial edema consistent with venous stasis changes and dermatitis. Patient data External records reviewed:: [facility] previous records Clinical information provided by:: patient Social determinants that could affect healthcare access:: housing Patient has the following chronic illnesses:: Diabetes mellitus How is presenting disease/condition affected by chronic disease/condition?: exacerbated by Evaluation data The following diagnostics were reviewed and interpreted by me:: lab results, radiology exam(s) and EKG tracing(s) Lab and/or radiology exams considered but not ordered:: Chest x-ray and ultrasound of the lower extremities are pending currently Interpretation Summary: Laboratories are significant for a BUN of 25, creatinine 2.1, urine 4+ glucose, I glucose of 139. Medications / Prescriptions Medications or Prescriptions considered but not ordered:: None Medication administrations:: Medication Administration History Discontinued Medications Morphine Sulfate (Morphine Sulf Inj 10 Mg/Ml Vial) 2 mg IVP X1 ONE Stop: 03/15/25 02:17 Last Admin: 03/15/25 02:57 Dose: 2 mg Documented By: WOLF Ondansetron HCl (Ondansetron Inj 2 Mg/Ml Inj 2 Ml) 4 mg IVP X1 ONE; Protocol Stop: 03/15/25 02:17 Last Admin: 03/15/25 02:57 Dose: 4 mg Documented By: WOLF See above Consultations Consultation(s) initiated? (list below): No Diagnosis Extremity Problem Differential Diagnosis: lower extremity edema Most likely diagnosis given after review of the tests above:: Diabetic neuropathy of the lower extremities, mild venous stasis dermatitis and edema Admission Indicated Admission indicated?: not indicated Admission Request Was there a request for admission?: No Disposition Plan Disposition Plan: Discharge Discharge Attestation Discharge Attestation: The patient and all family members were given an opportunity to ask questions and understood the discharge instructions. Discharge instructions specifically effects, indications for sooner follow up or return to the emergency department, and the expected course of current diagnosis. Patient condition: Stable Discharge Plan Plan Patient Disposition: Xfer Skilled Nsg Fac (SNF) Prescriptions/Referrals Prescriptions/Med Rec: New amoxicillin-pot clavulanate [Augmentin ES-600] 600-42.9 mg/5 mL suspension for reconstitution 7.3 ml PO BID 5 Days Qty: 73 0RF hydrocodone-acetaminophen 5-325 mg tablet 1 tab PO Q8H MDD 3 tab PRN (Reason: pain) Qty: 20 0RF bumetanide 1 mg tablet 0.5 mg PO QDAY 3 Days Qty: 2 0RF No Action azithromycin 250 mg tablet 250 mg PO DAILY Patient Comments: to start on 2nd day @ 250 mg for 5 days. glucagon HCl [Glucagon (HCl) Emergency Kit] 1 mg Recon Soln 1 mg SUBCUT Q20M PRN (Reason: hypo) Rx Instructions: until target blood sugar attained metformin 500 mg tablet 500 mg PO BID gabapentin 100 mg capsule 100 mg PO HS rosuvastatin 20 mg tablet 20 mg PO HS Januvia 100 mg tablet 100 mg PO DAILY insulin glargine-yfgn 100 unit/mL (3 mL) insulin pen 25 unit SUBCUT HS insulin glargine-yfgn 100 unit/mL (3 mL) insulin pen 7 unit SUBCUT AC amlodipine 5 mg Tablet 10 mg PO DAILY Qty: 30 0RF Referrals: Darren([facility]),Nikolai Vargas MD [Primary Care Provider] - In 1 week Problem List Clinical Impression: Dependent edema, Chronic leg pain, Neuropathy Patient/Caregiver Discharge Instructions Education Materials: ED Cellulitis, ED Leg Swelling in Both Legs, ED Lymphedema Additional Instructions: Please have patient follow-up with her primary care doctor. She likely has neuropathy and may need gabapentin at higher doses. Also consider cardiology evaluation. Elevate both legs at night. No evidence of DVT on ultrasound. Medication as directed. Follow-up with primary care doctor in 3 to 5 days. Print Language: Sinhala Stand Alone Forms: [employer] Award Info., Patient Portal Info Letter
--- NOTE | 2025-03-15 07:32 | PC.NURSE ---
PT ALERT UPON ASSUMPTION OF CARE, DENIES ANY PAIN AT THIS TIME, CONNECTED TO [facility] THAT IS WORKING WELL. VSS ON TELE. WILL CONT W/POC
[2025-03-15 08:08] VITALS: BP 157/73; PULSE 68; RESP 18; TEMP 36.4; O2SAT 97
[2025-03-15 10:01] VITALS: BP 163/95; PULSE 69; RESP 15; TEMP 36.6; O2SAT 97
[2025-03-15 11:54] VITALS: BP 163/86; PULSE 77; RESP 16; TEMP 36.4; O2SAT 99
--- NOTE | 2025-03-15 12:56 | PC.NURSE ---
SPOKE W/FACILITY, REQUEST THEY PROVIDE TRANSPORTATION FOR PT BACK TO THEIR FACILITY, SW FROM SNF TO CALL BACK W/UPDATE
== END 2025-03-15 14:05 | disposition skilled nursing facility (03) ==
PROVIDERS: Emergency Medicine; Emergency Provider Family Medicine; PCP Hospitalist
DX: E11.40 Type 2 diabetes mellitus with diabetic neuropathy, unspecified (principal); L03.115 Cellulitis of right lower limb; I12.9 Hypertensive chronic kidney disease with stage 1 through stage 4 chronic kidney disease, or unspecified chronic kidney disease; N18.9 Chronic kidney disease, unspecified; E11.22 Type 2 diabetes mellitus with diabetic chronic kidney disease; R94.31 Abnormal electrocardiogram [ECG] [EKG]; R06.02 Shortness of breath; R07.9 Chest pain, unspecified; E78.00 Pure hypercholesterolemia, unspecified; Z79.4 Long term (current) use of insulin; Z79.84 Long term (current) use of oral hypoglycemic drugs
CPT/HCPCS: 36415; 71045; 80053; 81001; 83880; 84484; 85025; 93005; 93970; 96374; 96375; 99283; J2270; J2405

== ENCOUNTER 2025-06-30 03:01 | Emergency (ER) | payer MEDICAID, SELFPAY ==
[2025-06-30 03:03] VITALS: PULSE 68; RESP 18; O2SAT 97; BMI 51.2
--- NOTE | 2025-06-30 03:03 | PD.EDLOWEX ---
Lower Extremity Injury RME/HPI General Chief Complaint: Extremity Injury, Lower Stated Complaint: FALL Time Seen by Provider: 06/30/25 03:09 Arrival date/time: 06/30/25 03:01 Mode of arrival: EMS RME / HPI complaint: leg injury Context: fall RME / HPI Narrative: See MDM for Dr. Lima's HPI Documentation. Related Data Home Medications ?Medication ?Instructions ?Recorded ?Confirmed azithromycin 250 mg tablet 250 mg PO DAILY 07/16/24 07/16/24 gabapentin 100 mg capsule 100 mg PO HS 07/16/24 07/16/24 glucagon HCl 1 mg solution for 1 mg subcut Q20M PRN hypo 07/16/24 07/16/24 injection (Glucagon (HCl) Emergency Kit) insulin glargine-yfgn 100 unit/mL 7 unit subcut AC 07/16/24 07/16/24 (3 mL) subcutaneous pen insulin glargine-yfgn 100 unit/mL 25 unit subcut HS 07/16/24 07/16/24 (3 mL) subcutaneous pen metformin 500 mg tablet 500 mg PO BID 07/16/24 07/16/24 rosuvastatin 20 mg tablet 20 mg PO HS 07/16/24 07/16/24 sitagliptin phosphate 100 mg 100 mg PO DAILY 07/16/24 07/16/24 tablet (Januvia) Previous Rx's ?Medication ?Instructions ?Recorded amlodipine 5 mg tablet 10 mg (2 x 5 mg) PO DAILY #30 tabs 07/19/24 hydrocodone 5 mg-acetaminophen 325 1 tab PO Q8H PRN pain #20 tabs 03/15/25 mg tablet Allergies Allergy/AdvReac Type Severity Reaction Status Date / Time No Known Allergies Allergy Verified 06/30/25 03:02 Review of Systems Review of Systems Systems Reviewed: All systems reviewed, normal except as documented Past Medical History Past Medical History NEUROLOGIC: Positive Cerebrovascular Accident CARDIAC: Positive Hypercholesterolemia, Hypertension and Hypotension GENITOURINARY: Positive Renal Disease ENDOCRINE: Positive Diabetes Mellitus Type 2 PSYCHO/SOCIAL: Positive Depression OTHER HISTORY: Positive Hospitalization, Falls and Blood Transfusions Surgical History SURGICAL: Positive Tracheostomy and Gastrostomy ED Exam Narrative Physical exam: See MDM for Dr. Lima's Physical Exam Documentation. Course Quality Measures none Orders Category Date Time Status Saline [Insert IV] NOW Care 06/30/25 03:12 Active Straight [In and Out Catheter] X1 Care 06/30/25 03:[address] cervical spine wo con Stat Exams 06/30/25 03:[address] chest abdomen pelvis wo Stat Exams 06/30/25 03:[address] head/brain wo con Stat Exams 06/30/25 03:[address] lower leg RT wo con Stat Exams 06/30/25 03:52 Taken XR femur RT 2V Stat Exams 06/30/25 03:14 Taken XR foot comp RT min 3V Stat Exams 06/30/25 03:14 Taken XR tibia fibula RT 2V Stat Exams 06/30/25 03:14 Taken Bilirubin,Direct Stat Lab 06/30/25 03:29 Completed CBC Stat Lab 06/30/25 03:29 Completed CMP [Comprehensive Metabolic Panel] Stat Lab 06/30/25 03:29 Completed Hemoglobin A1C [Glycohemoglobin w (eAG)] Stat Lab 06/30/25 03:29 Completed Magnesium Stat Lab 06/30/25 03:29 Completed TSH [Thyroid Stimulating Hormone] Stat Lab 06/30/25 03:29 Completed UA, C/S IF [Urinalysis, C/S if Indicated] Stat Lab 06/30/25 03:15 Ordered HYDROmorphone INJ [Dilaudid Inj] Med 06/30/25 03:13 Discontinued 1 mg IVP X1 ONE Ondansetron Inj [Zofran Inj] Med 06/30/25 03:13 Discontinued 4 mg IVP X1 ONE Ringers Lactated 1000 ml [Lactated Ringers] 1,000 ml Med 06/30/25 03:13 Discontinued IV 1,000 mls/hr Vital Signs Vital signs: Vital Signs Temperature 98.6 F 06/30/25 03:12 Pulse Rate 67 06/30/25 03:12 Respiratory Rate 20 06/30/25 03:12 Blood Pressure 116/85 H 06/30/25 03:12 Pulse Oximetry (%) 99 06/30/25 03:12 Extremity Injury, Lower MDM Narrative MDM Narrative:: This section includes all my notes and documentations, including HPI, PE, and ED course. Mook Lima MD HPI: 65 y/o female with Hx of Type II DM, HTN, and CVA BIBA from [facility] after a mechanical fall just [employer]. EMS reported staff was helping her to the bathroom when she fell. Fell on her right side. Uncertain about head injury. Uncertain if patient is oriented. She is crying in pain. Not answering questions. Pain seems to be the worst from her right leg. ROS: All negative except as documented in HPI. Physical Exam: General:? Alert. In severe pain. Eyes:? Conjunctivae and lids clear.? EOMI.? PERRL. ENT:? No signs of head trauma. Neck:? Supple.? Equivocal tenderness. Heart:? RRR. Lungs:? No respiratory distress.? Decreased air movement.? No severe rhonchi, wheezing, rales.? Chest: Equivocal tenderness. Abdomen:? Soft with equivocal nontender.? Normal bowel sounds.? No distension.? No rebound or guarding.? Back: Equivocal tenderness.? Skin:? Warm and dry.? Neuro:? Cranial Nerves II-XII grossly intact.? No peripheral motor deficits. Musculoskeletal:? All major joints and bones with equivocal tenderness. I reviewed EMS and [facility] notes. I ordered IVF, Zofran 4 mg IV, Dilaudid 1 mg IV, and diagnostic tests. At 6 AM on 06/30/2025, the care of the patient was transferred to Dr. CHRISTOPHER. Mook Lima MD Patient data External records reviewed:: [facility] previous records (Reviewed prior ED records from 03/15/25. Patient was seen for Cellulitis of leg without foot, right.), EMS form and [facility] records Clinical information provided by:: patient and EMS Social determinants that could affect healthcare access:: housing (Assisted Living Facility) Patient has the following chronic illnesses:: Hypercholesterolemia, Hypertension, Hypotension, Renal Disease, Diabetes Mellitus Type 2, Depression How is presenting disease/condition affected by chronic disease/condition?: exacerbated by Evaluation data The following diagnostics were reviewed and interpreted by me:: radiology exam(s) Lab and/or radiology exams considered but not ordered:: None Interpretation Summary: Diagnostic test results are pending. Medications / Prescriptions Medications or Prescriptions considered but not ordered:: None Medication administrations:: Medication Administration History Discontinued Medications Hydromorphone HCl (Hydromorphone Inj 2 Mg/Ml Vial) 1 mg IVP X1 ONE Stop: 06/30/25 03:14 Last Admin: 06/30/25 03:22 Dose: 1 mg Documented By: YUMIKO Lactated Ringer's (Lactated Ringers) 1,000 mls @ 1,000 mls/hr IV .Q1H ONE Stop: 06/30/25 04:12 Last Admin: 06/30/25 03:25 Dose: 1,000 mls/hr Documented By: YUMIKO Ondansetron HCl (Ondansetron Inj 2 Mg/Ml Inj 2 Ml) 4 mg IVP X1 ONE; Protocol Stop: 06/30/25 03:14 Last Admin: 06/30/25 03:21 Dose: 4 mg Documented By: YUMIKO I ordered IVF, Zofran 4 mg IV, Dilaudid 1 mg IV, and diagnostic tests. Consultations Consultation(s) initiated? (list below): No Diagnosis Extremity Injury, Lower Differential Diagnosis: ankle sprain and strain, acute internal derangement of knee, fracture of femur, fracture of hip and other (Head injury, spinal fracture, internal organ injury, extremity fracture) Most likely diagnosis given after review of the tests above:: Diagnostic test results are pending. Admission Indicated Admission indicated?: not indicated Explain why admission is indicated or not indicated:: Diagnostic test results are pending. Admission Request Was there a request for admission?: No Disposition Plan Disposition Plan: other (specify) (At 6 AM on 06/30/2025, the care of the patient was transferred to Dr. CHRISTOPHER.) Discharge Plan Prescriptions/Referrals Prescriptions/Med Rec: No Action hydrocodone-acetaminophen 5-325 mg tablet 1 tab PO Q8H MDD 3 tab PRN (Reason: pain) Qty: 20 0RF azithromycin 250 mg tablet 250 mg PO DAILY Patient Comments: to start on 2nd day @ 250 mg for 5 days. glucagon HCl [Glucagon (HCl) Emergency Kit] 1 mg Recon Soln 1 mg SUBCUT Q20M PRN (Reason: hypo) Rx Instructions: until target blood sugar attained metformin 500 mg tablet 500 mg PO BID gabapentin 100 mg capsule 100 mg PO HS rosuvastatin 20 mg tablet 20 mg PO HS Januvia 100 mg tablet 100 mg PO DAILY insulin glargine-yfgn 100 unit/mL (3 mL) insulin pen 25 unit SUBCUT HS insulin glargine-yfgn 100 unit/mL (3 mL) insulin pen 7 unit SUBCUT AC amlodipine 5 mg Tablet 10 mg PO DAILY Qty: 30 0RF Referrals: No Primary/Family,Physician [Primary Care Provider] - In 1 week Problem List Clinical Impression: Fall Patient/Caregiver Discharge Instructions Print Language: Macanese
[2025-06-30 03:12] VITALS: BP 116/85; PULSE 67; RESP 20; TEMP 37; O2SAT 99
--- NOTE | 2025-06-30 03:14 | XR_ITS ---
EXAMINATION: Right foot 2 views TECHNIQUE: AP lateral right foot 2 views Date and time: June 30, 2025, 0419 hours INDICATIONS: Patient fell tonight with injury to the foot, foot pain. FINDINGS: Severe osteopenia Soft tissue vascular calcification These films do not include the entire calcaneus Large plantar bony calcaneal spur Soft tissue swelling dorsum of the foot No definite acute fracture IMPRESSION: Limited study with no acute fracture depicted
--- NOTE | 2025-06-30 03:14 | XR_ITS ---
Examination: CT cervical spine without contrast 2-D sagittal reconstructions 2-D coronal reconstructions 3-D reconstructions. Exam date and time: June 30, 2025, 0448 hours INDICATIONS: Patient slipped and fell today with injury to the neck, neck pain CTDI:vol (mGy) 18.26 DLP: (mGycm) 431 Technique: Multiple 2 mm axial sections of the cervical spine have been obtained. The coronal and sagittal reconstructions have been obtained. 3-D reconstructions have been obtained. Low dose protocols were performed. One or more of the following dose reduction techniques were used; automated exposure control, adjustment of the mA and/or KV according to patient size, use of iterative reconstruction technique. Findings: Axial sections demonstrate intact base of the skull. C1 exhibit satisfactory relationship to the odontoid. No acute cervical vertebral body fracture seen. Alignment posterior spinous processes satisfactory. Impression: No acute cervical fracture.
--- NOTE | 2025-06-30 03:14 | XR_ITS ---
Examination: CT brain head without contrast. 2-D sagittal coronal reconstructions Date and time of exam: June 30, 2025, 0446 hours INDICATIONS: Patient slipped and fell today with injury to the head, head pain CTDI: vol (mGy): 53.30 DLP: (mGycm): 1059 Technique: Multiple CT axial sections of the brain have been obtained, 5 mm slice thickness. Contrast has not been administered. 2-D sagittal, coronal reconstructions have been obtained Low dose protocols were performed. One or more of the following dose reduction techniques were used; automated exposure control, adjustment of the mA and/or KV according to patient size, use of iterative reconstruction technique. Findings: No significant ventricular enlargement. Old infarcts left basal ganglia and right cerebellar hemisphere Intra-axial or extra-axial hemorrhage density is not seen. No mass effect or midline shift Basal cisterns are not remarkable. Fourth ventricle is midline. Cranial vault intact. Impression: Negative for acute hemorrhage, mass effect or midline shift
--- NOTE | 2025-06-30 03:14 | XR_ITS ---
Examination: CT chest, without intravenous contrast. CT abdomen, without intravenous contrast. CT pelvis, without intravenous contrast. 2-D sagittal and coronal reconstructions. 3-D reconstructions. Date and time of exam: June 30, 2025, 0456 hours INDICATIONS: Patient slipped and fell today with injury to the chest and abdomen, chest pain abdomen pain CTDI vol (mgy) 20.61 DLP (MGycm) 1552 Technique: Multiple CT images, 3.0 mm slice thickness, obtained chest, abdomen, pelvis, with the high-resolution 64 slice scanner.. Sagittal and coronal 2-D reconstructions are obtained. 3-D reconstructions Low dose protocols were performed. One or more of the following dose reduction techniques were used; automated exposure control, adjustment of the mA and/or KV according to patient size, use of iterative reconstruction technique. Findings: Limited noncontrast study Tracheal tube projects above the katrin Thoracic aorta pulmonary arteries intact No pneumothorax pulmonary contusion or hemothorax Manubrium and body the sternum intact Visualized thoracic lumbar and sacral segments appear intact No liver splenic or renal laceration Abdominal aorta intact no free blood in the abdomen or pelvis. Cholelithiasis Normal appendix Renal arterial calcifications Urinary bladder intact Atrophic uterus Ribs intact Bones of the pelvis hips intact IMPRESSION: No pneumothorax pulmonary contusion or hemothorax Thoracic aorta pulmonary arteries appear intact on this noncontrast study No abdominal parenchymal laceration Cholelithiasis Abdominal aorta intact No free blood in the abdomen or pelvis
--- NOTE | 2025-06-30 03:14 | XR_ITS ---
EXAMINATION: Right femur single view TECHNIQUE: AP right femur single view Date and time: June 30, 2025, 0400 hours INDICATIONS: Patient fell tonight with injury to the leg, femur pain. FINDINGS: Acute comminuted fracture distal femoral shaft, up to 28 mm separation of the main fracture fragments Condyles appear intact IMPRESSION: Acute comminuted displaced fracture distal femoral shaft
--- NOTE | 2025-06-30 03:14 | XR_ITS ---
Examination: Tibia-Fibula, 2, 2 views Technique: Tibia-fibula AP lateral 2 views Date and time of exam: June 30, 2025, 0338 hours INDICATIONS: Patient fell this morning with injury to the lower leg, lower leg pain. FINDINGS: Severe osteopenia Please see the femur report No acute fracture of the tibia fibula IMPRESSION: No acute fracture of the tibia fibula
[2025-06-30] MEDS: ONDANSETRON INJ 2 MG/ML INJ 2 ML 4 MG IVP (03:21)
[2025-06-30] MEDS: HYDROmorphone INJ 2 MG/ML VIAL 1 MG IVP ×3 (03:22→10:27)
[2025-06-30] MEDS: RINGERS LACTATED 1000 ML 1,000 ML IV (03:25)
[2025-06-30 03:40] LABS: Basophils # (Auto) 0.0 Thou/mm3 (0.0-0.2); Basophils % (Auto) 0 % (0-2.5); Eosinophils # (Auto) 0.2 Thou/mm3 (0.0-0.5); Eosinophils % (Auto) 1 % (0-10); Hematocrit 38.1 % (36.0-46.0); Hemoglobin 12.1 g/dL (12.0-16.0); Immature Granulocytes Auto 0.05 Thou/mm3 (0.00-0.00); Lymphocytes # (Auto) 2.3 Thou/mm3 (1.0-4.8); Lymphocytes % (Auto) 19 % (10-50); Mean Corpuscular HGB Conc 31.8 g/dl (31.0-37.0); Mean Corpuscular Hemoglobin 25.5 pg (25.0-35.0); Mean Corpuscular Volume 80 fL (80-100); Monocytes # (Auto) 0.6 Thou/mm3 (0.0-0.8); Monocytes % (Auto) 5 % (0-12); Neutrophils # (Auto) 9.3 Thou/mm3 (1.8-7.7); Neutrophils % (Auto) 75 % (37-80); Nucleated Red Blood Cell # 0.00 Thou/mm3 (0.00-0.00); Nucleated Red Blood Cell % 0 /100 WBC (0); Platelet Count 280 Thou/mm3 (140-440); RDW Standard Deviation 43.4 fL (36.4-46.3); Red Blood Count 4.74 Miln/mm3 (4.00-5.20); White Blood Count 12.5 Thou/mm3 (3.6-11.0)
--- NOTE | 2025-06-30 03:52 | XR_ITS ---
Examination: CT right lower extremity without intravenous contrast, without contrast. 2-D sagittal reconstructions. 2-D coronal reconstructions. 3-D reconstructions. Date and time of exam: June 30, 2025, 0442 hours INDICATIONS: Patient slipped and fell today with injury to the femur, femur pain CTDI: vol (mGy): 17.74 DLP: (mGycm): 1747 Technique: Multiple 1.25 mm axial sections of the right lower extremity without intravenous contrast have been obtained. 2-D sagittal and coronal reconstructions have been obtained. 3-D reconstructions have been obtained. Low dose protocols were performed. One or more of the following dose reduction techniques were used; automated exposure control, adjustment of the mA and/or KV according to patient size, use of iterative reconstruction technique. Findings: Acute comminuted fractures distal shaft of the femur At least 16 mm offset of the main fracture fragments Fracture lines do extend to the medial femoral condyle without significant displacement Significant right knee tricompartment osteoarthritis Severe osteopenia Adjacent soft tissue swelling Moderate knee effusion No patellar dislocation IMPRESSION: Acute comminuted displaced fractures distal shaft of the femur Fracture lines extend to the medial femoral condyle
[2025-06-30 03:53] LABS: Glucose Estimated Average 186 mg/dL (80-131); Hemoglobin A1C 8.1 % Hgb (4.8-6.0)
[2025-06-30 04:04] LABS: Alanine Aminotransferase 10 U/L (10-49); Albumin, Serum 3.6 gm/dL (3.4-4.8); Albumin/Globulin Ratio 1.1 (1.2-2.2); Alkaline Phosphatase 113 U/L (46-116); Anion Gap 11 (7-16); Aspartate Amino Transferase 17 U/L (0-34); BUN/Creatinine Ratio 10 Ratio (12-20); Bilirubin,Direct < 0.1 mg/dL (0.0-0.3); Bilirubin,Total 0.2 mg/dL (0.3-1.2); Blood Urea Nitrogen 26 mg/dL (9-23); Calcium 9.0 mg/dL (8.3-10.6); Calcium (Corrected) 9.3 mg/dL (8.5-10.1); Carbon Dioxide 26.5 mMol/L (20.0-31.0); Chloride 108 mMol/L (98-107); Creatinine (Component) 2.6 mg/dL (0.6-1.3); Estimated Creatinine Clearance 28.3 mL/min (>60); Globulin 3.2 gm/dL (2.3-3.5); Glucose 71 mg/dL (74-106); Magnesium 2.0 mg/dL (1.6-2.6); Osmolality,Calculated 291 (275-295); Potassium 3.4 mMol/L (3.4-5.1); Sodium 145 mMol/L (136-145); Thyroid Stimulating Hormone 2.47 uIU/mL (0.55-4.78); Total Protein 6.8 gm/dL (5.7-8.2); eGFR 20 See Note
--- NOTE | 2025-06-30 05:24 | PRELIM_ITS ---
CT scan of the head without intravenous contrast (axial sections with sagittal and coronal reformats) June 30, 2025 0446 hours Clinical History: Fall Compared with the prior study dated July 16, 2024. Findings: There is no evidence of intracranial hemorrhage, mass effect or midline shift. 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 There are periventricular white matter hypodensities, compatible with chronic small vessel ischemia. There is mild volume loss. There is atheromatous calcification of the intracranial arteries. The calvarium is intact. The mastoid air cells and the visualized paranasal sinuses are clear. Impression: No evidence of intracranial hemorrhage, midline shift or calvarial fracture. Other findings as described above. Report Electronically Signed By: Quentin Banegas 06/30/2025 5:23:49 AM [EST]
--- NOTE | 2025-06-30 05:30 | PRELIM_ITS ---
CT scan of the cervical spine without intravenous contrast (axial sections with sagittal and coronal reformats) June 30, 2025 0448 hours Clinical History: Trauma Comparison: No prior study is available for comparison. Findings: The bones are osteopenic. There is no fracture or traumatic subluxation. There are multilevel degenerative changes in the form of marginal osteophytes, decreased disc height, uncinate process and facet arthrosis, most prominent at C4-C5, C5-C6 and C6-C7 levels causing mild spinal canal and bilateral neural foraminal narrowing. The prevertebral soft tissues are unremarkable. Impression: No evidence of fracture or traumatic subluxation. Other findings as described above. Report Electronically Signed By: Quentin Banegas 06/30/2025 5:29:34 AM [EST]
--- NOTE | 2025-06-30 05:37 | PRELIM_ITS ---
CT scan of the chest, abdomen and pelvis without intravenous contrast (axial sections with sagittal and coronal reformats) June 30, 2025 0456 hours Clinical History: Fall Comparison: No prior study is available for comparison. Findings: Bibasilar atelectasis is seen. The lungs are otherwise clear. There is no pleural effusion or pneumothorax. The aorta is unremarkable on this noncontrast study. There is no mediastinal collection. There is no pericardial effusion. Multiple non obstructing bilateral renal calculi are seen. A hypodense lesion is noted in the left kidney, too small to characterize. The liver, gallbladder, spleen, pancreas, adrenals are unremarkable on this noncontrast study. The bowel is unremarkable. Postoperative changes are noted. The urinary bladder is unremarkable. There is no free fluid or free air. No fracture is identified. Impression: No visceral or bony injury to the chest, abdomen or pelvis. Report Electronically Signed By: Quentin Banegas 06/30/2025 5:36:23 AM [EST]
[2025-06-30 05:53] LABS: Collection Type, Urine Clean Catch
--- NOTE | 2025-06-30 05:56 | PRELIM_ITS ---
CT scan of the right lower extremity without intravenous contrast (axial sections with sagittal and coronal reformats) June 30, 2025 0442 hours Clinical History: Trauma Comparison: No prior study is available for comparison. Findings: There is an acute comminuted fracture of the distal shaft of the right femur, seen extending to the medial femoral condyle with adjacent soft tissue swelling. No dislocation is noted. There is severe osteoarthritis of both knee joints. There is moderate hemarthrosis. The visualized muscles are unremarkable with maintained intermuscular fat planes. There is moderate soft tissue swelling of the right leg. Impression: Acute comminuted fracture of the distal shaft of the right femur, seen extending to the medial femoral condyle withmoderate hemarthrosis andadjacent soft tissue swelling. Severe osteoarthritis of both knee joints. Other findings as described above. Report Electronically Signed By: Quentin Banegas 06/30/2025 5:55:28 AM [EST]
[2025-06-30 06:01] LABS: Bilirubin,Urine Negative (Negative); Blood,Urine Negative (Negative); Clarity,Urine Clear (Clear/Hazy); Color,Urine Lt-Yellow (Lt Yel-Yel); Culture Indicated,Urine Not Indicated; Glucose, Urine 3+ (Negative); Hyaline Casts,Urine < 1 /hpf (0-1); Ketones,Urine Negative (Negative); Leukocyte Esterase,Urine Negative (Negative); Nitrite,Urine Negative (Negative); PH,Urine 7.0 (5.0-7.0); Protein,Urine 3+ (Neg - Trace); RBC,Urine 1 /hpf (0-3); Specific Gravity,Urine 1.011 (1.001-1.035); Squamous Epithelial Cell,Urine < 1 /hpf (0-5); Urobilinogen,Urine Negative mg/dL (0.0-1.0); WBC,Urine 2 /hpf (0-5)
--- NOTE | 2025-06-30 06:04 | PD.EDADDENDU ---
Emergency Room Addendum Addendum Narrative: 0600: Care assumed from Dr. Lima (emergency physician). Past medical, surgical, social and family history reviewed. Vitals and home medications reviewed. Results and treatment plan discussed. They will assume the care of the patient at this time and will follow the patient, pending radiology reports, and final disposition. The following addendum documentation note is intended to reflect any pending information, findings, or radiology results not included in the patient?s initial chart by the previous shift scribe. Patient administered Dilaudid 1 mg for pain management. RADIOLOGY Head/Brain CT: Findings: No significant ventricular enlargement. Old infarcts left basal ganglia and right cerebellar hemisphere Intra-axial or extra-axial hemorrhage density is not seen. No mass effect or midline shift Basal cisterns are not remarkable. Fourth ventricle is midline. Cranial vault intact. Impression: Negative for acute hemorrhage, mass effect or midline shift C-Spine CT: Findings: Axial sections demonstrate intact base of the skull. C1 exhibit satisfactory relationship to the odontoid. No acute cervical vertebral body fracture seen. Alignment posterior spinous processes satisfactory. Impression: No acute cervical fracture. Chest/Abdomen/Pelvis CT: Findings: Limited noncontrast study Tracheal tube projects above the katrin Thoracic aorta pulmonary arteries intact No pneumothorax pulmonary contusion or hemothorax Manubrium and body the sternum intact Visualized thoracic lumbar and sacral segments appear intact No liver splenic or renal laceration Abdominal aorta intact no free blood in the abdomen or pelvis. Cholelithiasis Normal appendix Renal arterial calcifications Urinary bladder intact Atrophic uterus Ribs intact Bones of the pelvis hips intact IMPRESSION: No pneumothorax pulmonary contusion or hemothorax Thoracic aorta pulmonary arteries appear intact on this noncontrast study No abdominal parenchymal laceration Cholelithiasis Abdominal aorta intact No free blood in the abdomen or pelvis Lower Extremity CT: Findings: Acute comminuted fractures distal shaft of the femur At least 16 mm offset of the main fracture fragments Fracture lines do extend to the medial femoral condyle without significant displacement Significant right knee tricompartment osteoarthritis Severe osteopenia Adjacent soft tissue swelling Moderate knee effusion No patellar dislocation IMPRESSION: Acute comminuted displaced fractures distal shaft of the femur Fracture lines extend to the medial femoral condyle Femur X-Ray: FINDINGS: Acute comminuted fracture distal femoral shaft, up to 28 mm separation of the main fracture fragments Condyles appear intact IMPRESSION: Acute comminuted displaced fracture distal femoral shaft Tibia/Fibula X-Ray: FINDINGS: Severe osteopenia Please see the femur report No acute fracture of the tibia fibula IMPRESSION: No acute fracture of the tibia fibula Foot X-Ray: FINDINGS: Severe osteopenia Soft tissue vascular calcification These films do not include the entire calcaneus Large plantar bony calcaneal spur Soft tissue swelling dorsum of the foot No definite acute fracture IMPRESSION: Limited study with no acute fracture depicted 0713: Patient still reports excruciating pain. Will continue to monitor before administering more pain medication. 0817: Discussed with Dr. Pozo for consult. Reviewed the patient?s HPI, PMHx, lab and/or radiology results. Treatment plan was discussed. Dr. Pozo advises transfer to [facility] due to [facility] not having the required radiotransluscent table to perform the necessary repair. 0848: Patient accepted for transfer, ED to ED, by Dr. Nicholson at [facility]. 1023: Administered Dilaudid 1 mg for management of pain during transport. 1045: Patient is agitated, in pain, and is moving fractured limb. Placed knee immobilizer for gentle support. 1051: Patient transferred to [facility] by EMS.
[2025-06-30 06:12] VITALS: BP 152/86; PULSE 68; RESP 20; TEMP 36.4; O2SAT 98
[2025-06-30 08:09] VITALS: BP 147/89; PULSE 71; RESP 17; TEMP 36.7; O2SAT 98
--- NOTE | 2025-06-30 08:17 | CONPN_ITS ---
Subjective Subjective Narrative: Patient is a 65yo female with a ground level fall and a comminuted distal femur fracture. I talked with the orthopaedic surgeon domestic travel consultant at [facility], [place]. This fracture appears nailable on CT. At our hospital, we do not have a radiolucent table or mazin table which makes visualizing this fracture very difficult. I talked with the orthopaedic traumatologist at [facility] [place] who is available to take the case as they have a radiolucent table. In my experience, the proximal interlocks for the IM retrograde nail on this fracture is near impossible without a radiolucent table. - Recommend transfer to a hospital with ability to image fracture during surgery Exam Vital Signs Temp Pulse Resp BP Pulse Ox O2 Del Method 98.1 F 71 17 147/89 H 98 Room Air 06/30/25 08:09 06/30/25 08:09 06/30/25 08:09 06/30/25 08:09 06/30/25 08:09 06/30/25 08:09 Objective - Ortho Labs 06/30/25 03:29 06/30/25 03:29 Labs: Laboratory Results - last 24 hr 06/30/25 06/30/25 03:29 05:49 WBC 12.5 H RBC 4.74 Hgb 12.1 Hct 38.1 MCV 80 MCH 25.5 MCHC 31.8 RDW Std Deviation 43.4 Plt Count 280 Neut % (Auto) 75 Lymph % (Auto) 19 [place]ven % (Auto) 5 Eos % (Auto) 1 Baso % (Auto) 0 Neut # (Auto) 9.3 H Lymph # (Auto) 2.3 Craven # (Auto) 0.6 Eos # (Auto) 0.2 Baso # (Auto) 0.0 Immature Gran # (Auto) 0.05 H Absolute Nucleated RBC 0.00 Immature Gran % 0 Nucleated RBC % 0 Sodium 145 Potassium 3.4 Chloride 108 H Carbon Dioxide 26.5 Anion Gap 11 BUN 26 H Creatinine 2.6 H Estim Creat Clear Calc 28.3 L eGFR 20 L BUN/Creatinine Ratio 10 L Glucose [address] Glu mg/dL 186 H Hemoglobin A1c 8.1 H Calculated Osmolality 291 Calcium 9.0 Corrected Calcium 9.3 Magnesium 2.0 Total Bilirubin 0.2 L Direct Bilirubin < 0.1 AST 17 ALT 10 Alkaline Phosphatase 113 Total Protein 6.8 Albumin 3.6 Globulin 3.2 Albumin/Globulin Ratio 1.1 L TSH 2.47 Ur Collection Type Clean Catch Urine Color Lt-Yellow Urine Clarity Clear Urine pH 7.0 Ur Specific [place] 1.011 Urine Protein 3+ A Urine Glucose (UA) 3+ A Urine Ketones Negative Urine Blood Negative Urine Nitrite Negative Urine Bilirubin Negative Urine Urobilinogen (Auto) Negative Ur Leukocyte Esterase Negative Urine RBC 1 Urine WBC 2 Ur Squamous Epith Cells < 1 Urine Bacteria None Hyaline Casts < 1 Ur Culture Indicated? Not Indicated Documentation for date of: 06/30/25
--- NOTE | 2025-06-30 08:29 | PC.CC ---
Addendum entered by Marjorie Adams RN 06/30/25 09:52: transfer packet w/ 1 CD given to ED ELIZABETH Miller. Transport arranged with medicinal plant picker ETA OF 1035. Called [facility], informed Leesa of transport ETA. Informed bedside nurse Anabella of ETA and stated she will call report. Addendum entered by Marjorie Adams RN 06/30/25 08:53: 0851: peer to peer w/ Dr. Nicholson completed. Dr. Nicholson accepted the patient ED TO ED. call report to [phone] 0848: Leesa w/ [facility] called back, spoke to Dr. Bentley for the EMTALA questions. Original Note: 0827: spoke to Leesa patiño/ [facility] to initiate transfer request. Provided the info that Dr. Pozo spoke to the oncall ortho there at [facility] and she stated no one informed her of the transfer therefore the this request will be processed as usual. She will review the clinicals once she receives them and call back. 0825: clinicals and imaging sent to [facility]. CD x1 and transfer packet created. 0820: received call from Dr. Bentley for transfer request for ortho for acute comminuted displaced fractures distal shaft of the femur extending to the medial femoral condyle. Will need radiotranslucent table for repair. Informed her that Dr. Pozo is oncall, she stated she already spoke to him and he advised to transfer to [facility]. Per Dr. Bentley, Dr. Pozo spoke to oncall ortho at [facility] however she couldn't recall the 's name.
--- NOTE | 2025-06-30 11:03 | PC.NURSE ---
report given to Raquel CHOU at [facility]
== END 2025-06-30 10:52 | disposition short-term general hospital (02) ==
PROVIDERS: Emergency Medicine; Emergency Provider Emergency Medicine
DX: S72.491A Other fracture of lower end of right femur, initial encounter for closed fracture (principal); S99.921A Unspecified injury of right foot, initial encounter; S89.91XA Unspecified injury of right lower leg, initial encounter; S09.90XA Unspecified injury of head, initial encounter; S19.9XXA Unspecified injury of neck, initial encounter; S29.9XXA Unspecified injury of thorax, initial encounter; S39.91XA Unspecified injury of abdomen, initial encounter; K80.20 Calculus of gallbladder without cholecystitis without obstruction; R45.1 Restlessness and agitation; W18.30XA Fall on same level, unspecified, initial encounter; Z75.1 Person awaiting admission to adequate facility elsewhere
CPT/HCPCS: 36415; 51701; 70450; 71250; 72125; 73552; 73590; 73620; 73630; 73700; 74176; 80053; 81001; 82248; 83036; 83735; 84443; 85025; 96374; 96375; 96376; 99284; J1171; J2405; J7120